=== PATIENT | male | born 1940 | race Caucasian/White ===

== ENCOUNTER 2018-11-14 08:53 | Outpatient (CLI) | payer MEDICARE, BC | END 2018-11-14 23:59 | disposition home or self-care (01) | LOC: US 08:53 | PROVIDERS: ATTEND Internal Medicine Interventional Cardiology | DX: I71.4 Abdominal aortic aneurysm, without rupture (principal); K80.20 Calculus of gallbladder without cholecystitis without obstruction | CPT/HCPCS: 76700-TC ==

== ENCOUNTER 2018-12-14 10:21 | Inpatient (IN) | payer MEDICARE, BC ==
[~2018-12-14] VITALS: Ht 182.9 cm; Wt 82.6 kg
--- NOTE | 2018-12-14 10:28 | NUR ---
BIBRA60 FROM HOME "WAS SITTING DOWN ON BED, FELL, AND HEARD A CRACK". C/O L HIP PAIN, +ROTATION AND SHORTENING OF L LEG. 100MG FENTANYL GIVEN EN ROUTE. TO ER BED 3, HOOKED TO MONITOR, CHANGED TO GOWN, AWAITING MD SALCEDO.
[2018-12-14] MEDS ORDERED: HYDROCODONE/APAP 10/325MG 1 EA TABLET ONE (10:49)
[2018-12-14 10:58] LABS: BASOPHILS % (AUTO) 0.4 % (0.0-2.0); EOSINOPHILS % (AUTO) 0.4 % (0.0-6.0); HEMATOCRIT 42 % (39-51); HEMOGLOBIN 13.9 g/dL (13.5-17.5); LYMPHOCYTES # (AUTO) 0.5 /CMM (0.8-4.8); LYMPHOCYTES % (AUTO) 9.6 % (20.0-44.0); MEAN CORPUSCULAR HGB CONC 33 g/dl (31.0-36.0); MEAN CORPUSCULAR VOLUME 97 fL (80-96); MONOCYTES # (AUTO) 0.7 /CMM (0.1-1.30); MONOCYTES % (AUTO) 12.8 % (2.0-12.0); NEUTROPHILS # (AUTO) 4.2 /CMM (1.8-8.9); NEUTROPHILS % (AUTO) 76.8 % (43.0-81.0); PLATELET COUNT (AUTO) 118 /CMM (150-450); RED BLOOD CELL COUNT(AUTO) 4.32 MIL/uL (4.5-6.0); WHITE BLOOD COUNT (AUTO) 5.4 K/uL (4.3-11.0)
[2018-12-14] MEDS ORDERED: HYDROCODONE/APAP 10/325MG 1 EA TABLET PO ONE (11:00)
[2018-12-14] MEDS ORDERED: ASCO500T9 PO (11:07)
[2018-12-14] MEDS ORDERED: OXYB10TA PO (11:07)
[2018-12-14] MEDS ORDERED: CYAN100096 PO (11:07)
[2018-12-14] MEDS ORDERED: CARV3.122 PO (11:07)
[2018-12-14] MEDS ORDERED: FURO40TA5 PO (11:07)
[2018-12-14] MEDS ORDERED: HYDR-3980 PO (11:07)
[2018-12-14] MEDS ORDERED: LOSA50TA39 PO (11:07)
[2018-12-14] MEDS ORDERED: MEMA5TAB15 PO (11:07)
[2018-12-14] MEDS ORDERED: ROPI0.5T2 PO (11:07)
[2018-12-14] MEDS ORDERED: TRAZ-214 PO (11:07)
[2018-12-14] MEDS ORDERED: PREG200C PO (11:07)
[2018-12-14] MEDS ORDERED: ATOR10TA PO (11:07)
--- NOTE | 2018-12-14 11:07 | NUR ---
XRAY TECHS AT BEDSIDE
[2018-12-14 11:08] LABS: CARBON DIOXIDE 29 mmol/L (21-32); CHLORIDE 103 mmol/L (98-107); GLUCOSE 171 mg/dL (74-106); POTASSIUM 4.9 mmol/L (3.5-5.1); SODIUM SERUM 137 mmol/L (136-145); UREA NITROGEN, BLOOD 51 mg/dL (7-18)
--- NOTE | 2018-12-14 11:48 | NUR ---
CALLED OFFICE OF Miguel RODRIGUEZ. [phone] WAS PAGED.
--- NOTE | 2018-12-14 11:51 | NUR ---
JC CORRIGAN AT [facility] ([phone]). AWAITNG FOR CALL BACK. PRIMARY NURSE AWARE.
[2018-12-14] MEDS ORDERED: IV NS 0.9% 500 ML BAG IV ONE (12:00)
--- NOTE | 2018-12-14 12:04 | NUR ---
DANIEL CARROLL ON-CALL. TRANSFERRED CALL TO DR. ESPARZA.
--- NOTE | 2018-12-14 12:13 | NUR ---
CALLED ROSEMARIE COHEN BICYCLE SERVICE TECHNICIAN THO GREENE
[2018-12-14] MEDS ORDERED: MORPHINE SULFATE INJ 4 MG/ML DISP.SYRIN ONE (12:23)
[2018-12-14] MEDS ORDERED: PHYTONADIONE INJ 10 MG/1 ML AMPUL ONE (12:23)
[2018-12-14] MEDS ORDERED: PHYTONADIONE INJ 10 MG/1 ML AMPUL SQ ONE (12:30)
[2018-12-14] MEDS ORDERED: MORPHINE SULFATE INJ 2 MG/ML DISP.SYRIN IV ONE (12:30)
[2018-12-14] MEDS ORDERED: PHYTONADIONE 5 MG TABLET PO ONE (12:30)
--- NOTE | 2018-12-14 13:03 | NUR ---
REPORT GIVEN TO JOE MARQUEZ OF TELE UNIT
--- NOTE | 2018-12-14 13:15 | NUR ---
SALES DESIGNERFLIGHT CREW TIME CLERK NOTES RECEIVED PT FROM ER TO ROOM 111-1.ALERT/ORIENTED X3.ON TELE HR IS 100 WITH BBB.ON ROOM AIR,SATURATING WELL.NO SOB AND ACUTE DISTRESS NOTED.IV LINE IS ON LEFT AC G20,SL.SITE IS CLEAN,DRY AND INTACT.NO INFILTRATION NOTED.C/O DULL PAIN ON LEFT HIP 5/10.DENIES PAIN MEDICINES.SKIN ASSESSMENT HAS DONE AND NOTED WITH BRUISES ON BLE AND BUE.PT REFUSED TO CHECK ON BACK BECAUSE OF PAIN. PER PT HE HAS DEFIBRILLATOR ON BACK.VITAL SIGNS CHECKED AND RECORDED.FAMILY IS AT BEDSIDE.BED IS IN LOW POSITION AND LOCKED.CALL LIGHT IS WITHIN REACH.WILL CONTINUE TO MONITOR THE PT CLOSELY.
--- NOTE | 2018-12-14 14:00 | NUR ---
INTERMEDIATE FRAME TENDER NOTES NOTED WITH ADMITTING DR.KASHANI COTTON TO PLACE ADMITTING ORDERS. PER HIM HE ALREADY PLACED THE ORDERS.BUT WE ALREADY LET HIM KNOW,ITS NOT SHOWING UPX2.STILL THE ORDER IS PENDING.
[2018-12-14 16:00] VITALS: BP 120/80
[2018-12-14] MEDS ORDERED: PREGABALIN 100 MG CAPSULE PO SCH (17:30)
[2018-12-14 17:34] LABS: THYROID STIMULATING HORMONE 0.762 uIU/mL (0.358-3.74)
[2018-12-14 17:47] LABS: MAGNESIUM 2.5 mg/dL (1.8-2.4); PHOSPHORUS 3.7 mg/dL (2.5-4.9)
[2018-12-14] MEDS: ropiniROLE 0.5 MG TABLET PO SCH (18:11)
[2018-12-14] MEDS: PREGABALIN 100 MG CAPSULE PO SCH (18:11)
[2018-12-14] MEDS: MEMANTINE HCL 5 MG TABLET PO SCH (18:11)
[2018-12-14] MEDS: HYDROCODONE/APAP 10/325MG 1 EA TABLET PO PRN (18:12)
[2018-12-14] MEDS: CARVEDILOL 3.125 MG TABLET PO SCH (18:12)
--- NOTE | 2018-12-14 18:58 | NUR ---
PATTERN HAND CLOSING NOTES PT IS LYING ON BED,HAD DINNER.IV FLUID PLACED AND RUNNING.SITE IS CLEAN,DRY AND INTACT.ALL THE DUE MEDS ARE GIVEN.NO SIGNIFICANT CHANGES NOTED IN THE SHIFT.PAIN MED ARE GIVEN.ALL THE CONSENTS ARE SIGNED BY ALICIA SORENSON IN FRONT OF PT.REPORT GIVEN TO BAG MACHINE ADJUSTER ALMA FLORES FOR COLIN.
--- NOTE | 2018-12-14 19:30 | NUR ---
KETTLE OPERATOR HEAD NOTES, PATIENT IN BED, SLEEPING AT THIS TIME, BREATHING EVEN AND UNLABORED, NO SOB/ACUTE DISTRESS NOTE AT THIS TIME, IV ACCESS IN LAC 20G PATENT AND INTACT, IVF INFUSING WELL AND PATIENT TOLERATED WELL, NO S/S OF INFILTRATION NOTED AT THIS TIME, PATIENT WILL BE NPO AFTER MIDNIGHT FOR SURGERY LEFT ORIF, WILL EDUCATE PATIENT, SLEEPING AT THIS TIME, LEAVING AT THIS TIME, AND VERBALIZED UNDERSTANDING, ALL NEEDS PROVIDED, NO S/S OF PAIN NOTED AT THIS TIME, BED LOCKED AND LOWEST POSITION, CALL LIGHT W/I REACH, WILL CONTINUE TO MONITOR CLOSELY.
[2018-12-14 20:00] VITALS: BP 89/64
[2018-12-14 21:00] VITALS: BP 89/64
[2018-12-14] MEDS: TRAZODONE 50 MG TABLET PO SCH (21:50)
[2018-12-15] VITALS (8 sets, daily range): BP systolic 95–135; BP diastolic 56–87
[2018-12-15] MEDS: IV NS 0.9% 1,000 ML IV PRN ×2 (02:56→11:04)
[2018-12-15] MEDS: HYDROCODONE/APAP 10/325MG 1 EA TABLET PO PRN ×2 (03:41→13:30)
--- NOTE | 2018-12-15 06:45 | NUR ---
RN DIABETES EDUCATOR NOTES, PATIENT IN BED, SLEEPING AT THIS TIME, BREATHING EVEN AND UNLABORED, NO SOB/ACUTE DISTRESS NOTE AT THIS TIME, IV ACCESS IN LAC 20G PATENT AND INTACT, IVF INFUSING WELL AND PATIENT TOLERATED WELL, NO S/S OF INFILTRATION NOTED AT THIS TIME, PATIENT NPO SINCE MIDNIGHT FOR ORIF LEFT FEMUR, PATIENT VERBALIZED UNDERSTANDING AND COMPLIANT WITH CARE, ALL NEEDS PROVIDED, NO S/S OF PAIN NOTED AT THIS TIME, BED LOCKED AND LOWEST POSITION, NO SIGNIFICANT CHANGE IN CONDITION DURING THE NIGHT, CALL LIGHT W/I REACH, WILL ENDORSE CONTINUITY OF CARE TO ONCOMING NURSE.
--- NOTE | 2018-12-15 08:05 | NUR ---
HAND DECORATOR NOTE RECEIVED REPORT FROM JARRELL MARQUEZ.PATIENT AXOX4.NO SOB NO DISTRESS NOTED.ON TELE MONITOR AFIB WITH PVC AND BBB HR90'S-110.V ON LAC WITH IVF AT 125CC/HR.C/O PAIN IN LOWER ABDOMEN. PER PATIENT UNABLE TO URINATE,AND HAS URGE.BLADDER SCAN DONE.NO URINARY RETENTION. MADE AWARE.GOT NEW ORDER .BED IS LOW AND I LOCKED POSITION.CALL LIGHT IN REACH.SRX3.REFUSED TO TURN AND REPOSITION.EXPLAINED RISK AND BENEFIT .STILL REFUSING.WILL CONTINUE TO MONITOR.
[2018-12-15 08:58] LABS: ALANINE AMINOTRANSFERASE 18 U/L (12-78); ALBUMIN 3.2 g/dL (3.4-5.0); ALKALINE PHOSPHATASE 72 U/L (46-116); ASPARTATE AMINOTRANSFERASE 15 U/L (15-37); BILIRUBIN,TOTAL 0.4 mg/dL (0.2-1.0); CALCIUM, SERUM 8.8 mg/dL (8.5-10.1); CARBON DIOXIDE 28 mmol/L (21-32); CHLORIDE 103 mmol/L (98-107); CREATININE 1.7 mg/dL (0.6-1.3); GLUCOSE 140 mg/dL (74-106); MAGNESIUM 2.4 mg/dL (1.8-2.4); PHOSPHORUS 3.7 mg/dL (2.5-4.9); POTASSIUM 5.3 mmol/L (3.5-5.1); SODIUM SERUM 136 mmol/L (136-145); TOTAL PROTEIN, SERUM 6.3 g/dL (6.4-8.2); UREA NITROGEN, BLOOD 50 mg/dL (7-18)
[2018-12-15 09:12] LABS: BASOPHILS % (AUTO) 0.3 % (0.0-2.0); EOSINOPHILS % (AUTO) 0.8 % (0.0-6.0); HEMATOCRIT 40 % (39-51); LYMPHOCYTES % (AUTO) 17.1 % (20.0-44.0); MEAN CORPUSCULAR HGB CONC 33 g/dl (31.0-36.0); MEAN CORPUSCULAR VOLUME 97 fL (80-96); MONOCYTES # (AUTO) 0.9 /CMM (0.1-1.30); NEUTROPHILS # (AUTO) 3.6 /CMM (1.8-8.9); NEUTROPHILS % (AUTO) 64.8 % (43.0-81.0); PLATELET COUNT (AUTO) 106 /CMM (150-450); RED BLOOD CELL COUNT(AUTO) 4.09 MIL/uL (4.5-6.0); WHITE BLOOD COUNT (AUTO) 5.6 K/uL (4.3-11.0)
[2018-12-15] MEDS: PREGABALIN 100 MG CAPSULE PO SCH ×3 (09:16→17:12)
[2018-12-15] MEDS: ropiniROLE 0.5 MG TABLET PO SCH (09:16)
[2018-12-15] MEDS: CARVEDILOL 3.125 MG TABLET PO SCH ×2 (09:16→17:15)
[2018-12-15] MEDS: MEMANTINE HCL 5 MG TABLET PO SCH ×2 (09:16→17:12)
[2018-12-15] MEDS: MORPHINE SULFATE INJ 2 MG/ML DISP.SYRIN IV PRN ×3 (09:18→20:07)
--- NOTE | 2018-12-15 09:19 | NUR ---
WOUND CARE CONSULT: PT REFUSED TO TURN FOR SKIN ASSESSMENT. PT NOTED TO HAVE IMMOBILIZER ON LEFT LOWER EXTREMITY. WEEPING EDEMA NOTED TO LEFT LOWER LEG, PRESENT ON ADMISSION. DISCOLORATION AND DRY FLAKY SKIN NOTED TO RT LOWER LEG, PRESENT ON ADMISSION. PT IS CONTINENT AT THIS TIME. CURRENT EMA SCORE IS 14. DISCUSSED SKIN PROTECTION WITH NURSING STAFF. WILL SEE PRN. JUNG IN AGREEMENT WITH PLAN OF CARE. Addendum: 12/15/18 at 0922 by MICHELLE HOBSON WNDNU Amended: Links added.
[2018-12-15] MEDS ORDERED: Z GUARD REMEDY 2 OZ OINT TP PRN (09:30)
--- NOTE | 2018-12-15 09:34 | NUR ---
HIRE CAR DRIVER NOTE SEEN BY WOUND CARE NURSE.GOT NEW ORDERS.MADE AWARE THAT PATIENT REFUSED TO TURN AND REPOSITION.
[2018-12-15] MEDS ORDERED: MINERAL OIL/PETROLATUM,WHITE 120 GM JAR TP PRN (10:00)
--- NOTE | 2018-12-15 10:00 | NUR ---
UX ENGINEER NOTE SEEN BY ,UPDATED ABOUT PATIENT CONDITION WITH HEART RHYTHM IN MONITOR AFIB WITH MORE FREQUENT PVC AND BB.MADE AWARE THAT NOT ON ANY MEDICATION TO CONTROL HR.
--- NOTE | 2018-12-15 10:15 | NUR ---
LOOM OPERATOR APPRENTICE NOTE MADE AWARE THAT PATIENT HAS FULL BLADDER ON ULTRASOUND,GOT ORDER TO INSERT RASHID CATH.
[2018-12-15] MEDS ORDERED: PHYTONADIONE INJ 10 MG in IV D5W 50 ML IV ONE (10:30)
--- NOTE | 2018-12-15 11:56 | NUR ---
RELAY TECHNICIAN NOTE PATIENT C/O CHEST PRESSURE AND HARD TIME BREATHING.NO CHEST PAIN.STAT EKG AND TROPONIN DONE. MADE AWARE.GOT NEW ORDERS.VITAL SIGNS STABLE.
--- NOTE | 2018-12-15 13:00 | NUR ---
MANAGER FACILITY NOTE AND UPDATED ABOUT POSITIVE DVT RESULT.
[2018-12-15] MEDS: Z GUARD REMEDY 2 OZ OINT TP SCH (13:29)
--- NOTE | 2018-12-15 14:45 | NUR ---
TYPE COPY EXAMINER NOTE UPDATED ABOUT PATIENT CONDITION.GOT NEW ORDERS.SEEN BY UPDATED ABOUT PATIENT CONDITION.GOT NEW ORDERS.GOT CALL FROM ,IVC FILTER INSERTION TOMORROW,GOT NEW ORDERS.PATIENT AND FAMILY UPDATED.
[2018-12-15] MEDS ORDERED: MAGNESIUM CITRATE 296 ML BOTTLE PO ONE (16:00)
--- NOTE | 2018-12-15 16:00 | NUR ---
SENIOR ASP NET DEVELOPER NOTE PATIENT PICKED UP FOR VQ SCAN IN STABLE CONDITION.SEEN BY AEROSPACE MECHANIC ROSETTA ,UPDATED ABOUT PATIENT CONDITION.SPOKE TO FAMILY AND ANSWERED ALL QUESTIONS.GOT NEW ORDERS.
--- NOTE | 2018-12-15 16:00 | NUR ---
FLATWORK CATCHER NOTE COMMUNITY RELATIONS MANAGER ROSETTA MADE AWARE ABOUT US ABDOMEN RESULT GOT NEW ORDERS.
[2018-12-15 16:24] LABS: CREATININE, URINE 180.8 MG/DL (30.0-125.0); URINE SODIUM, RANDOM < 5 mmol/l (40-220); URINE TOTAL PROTEIN 30.3 mg/dL (0-11.9)
--- NOTE | 2018-12-15 16:24 | NUR ---
SPEECH COMMUNICATION PROFESSOR NOTE ULTRASOUND ABDOMEN RESULT RELAYED TO HAILEY REYES NOW. Addendum: 12/15/18 at 1932 by GUTIERREZ CALDERON RN TAMIB ABDOMEN
[2018-12-15 16:26] LABS: APPEARANCE,URINE CLEAR (CLEAR); BILIRUBIN,URINE NEGATIVE (NEGATIVE); BLOOD, URINE NEGATIVE Ery/uL (NEGATIVE); COLOR,URINE YELLOW (YELLOW); KETONES,URINE NEGATIVE (NEGATIVE); LEUKOCYTE ESTERASE ,URINE NEGATIVE (NEGATIVE); NITRITE, URINE NEGATIVE (NEGATIVE); PROTEIN,URINE NEGATIVE (NEGATIVE); UGLUCOSE NEGATIVE (NEGATIVE); UROBILINOGEN,URINE 0.2 EU/dL (0.2)
--- NOTE | 2018-12-15 18:41 | NUR ---
NUCLEAR POWERPLANT MECHANIC HELPER NOTE PATIENT AXOX4. AT BEDSIDE .NO SOB NO DISTRESS NOTED.ON O2 2L VIA NASAL CANULA.ON TELE MONITOR AFIB WITH PVC AND BBB HR90'S-110.IV ON LAC WITH IVF NS AT 125CC/HR. .WAITING FOR VQ SCAN RESULT.REFUSED TURN AND REPOSITION.EDUCATION GIVEN.EXPLAINED RISK AND BENEFIT .STILL REFUSING.BED IS LOW AND IN LOCKED POSITION.CALL LIGHT IN REACH.SRX3. PER IVC FILTER PLACEMENT TOMORROW.EPIDEMIOLOGY INTERN ROSETTA MADE AWARE.WILL ENDORSE TO PM NURSE FOR COLIN.
--- NOTE | 2018-12-15 19:30 | NUR ---
CHEMIST ENZYMES NOTES, PATIENT IN BED, AWAKE AT THIS TIME, A/O X4, BREATHING EVEN AND UNLABORED, NO SOB/ACUTE DISTRESS NOTE AT THIS TIME, AFIB ON TELE MONITOR HR IN 100-110S AT THIS TIME, SON AT BEDSIDE, IV ACCESS IN LAC 20G PATENT AND INTACT, IVF INFUSING WELL AND PATIENT TOLERATED WELL, NO S/S OF INFILTRATION NOTED AT THIS TIME, F/C IN PATIENT WILL BE NPO AFTER MIDNIGHT FOR RIGHT LEG IV FILTER PLACEMENT TOMORROW AND POSSIBLE SURGERY LEFT ORIF, EDUCATION PROVIDED AND PATIENT VERBALIZED UNDERSTANDING AND CONSENT WAS OBTAINED, ALL NEEDS PROVIDED, NO S/S OF PAIN NOTED AT THIS TIME, BED LOCKED AND LOWEST POSITION, CALL LIGHT W/I REACH, WILL CONTINUE TO MONITOR CLOSELY.
[2018-12-15 21:36] LABS: EOSINOPHIL,URINE None Seen
[2018-12-15] MEDS: TRAZODONE 50 MG TABLET PO SCH (21:37)
[2018-12-16] VITALS: BP 110/50
[2018-12-16] MEDS: IV NS 0.9% 1,000 ML IV PRN ×3 (02:41→23:21)
[2018-12-16 04:00] VITALS: BP 137/84
--- NOTE | 2018-12-16 06:34 | NUR ---
COMMISSIONER OF RELOCATION SERVICES NOTES, PATIENT IN BED SLEEPING AT THIS TIME, BREATHING EVEN AND UNLABORED, NO SOB/ACUTE DISTRESS NOTE AT THIS TIME, IV ACCESS IN LAC 20G PATENT AND INTACT, IVF INFUSING WELL AND PATIENT TOLERATED WELL, NO S/S OF INFILTRATION NOTED AT THIS TIME, F/C IN PATIENT NPO SINCE MIDNIGHT FOR RIGHT LEG IVC FILTER PLACEMENT TODAY AND POSSIBLE SURGERY LEFT ORIF, NO SIGNIFICANT CHANGE IN CONDITION DURING THE NIGHT, BED LOCKED AND LOWEST POSITION, CALL LIGHT W/I REACH, WILL ENDORSE CONTINUITY OF CARE TO ONCOMING NURSE.
[2018-12-16 06:57] LABS: BASOPHILS % (AUTO) 0.4 % (0.0-2.0); HEMATOCRIT 38 % (39-51); HEMOGLOBIN 12.7 g/dL (13.5-17.5); LYMPHOCYTES # (AUTO) 0.6 /CMM (0.8-4.8); LYMPHOCYTES % (AUTO) 10.9 % (20.0-44.0); MEAN CORPUSCULAR HGB CONC 34 g/dl (31.0-36.0); MEAN CORPUSCULAR VOLUME 96 fL (80-96); MONOCYTES # (AUTO) 0.9 /CMM (0.1-1.30); MONOCYTES % (AUTO) 15.8 % (2.0-12.0); NEUTROPHILS # (AUTO) 4.2 /CMM (1.8-8.9); NEUTROPHILS % (AUTO) 71.9 % (43.0-81.0); PLATELET COUNT (AUTO) 103 /CMM (150-450); RED BLOOD CELL COUNT(AUTO) 3.94 MIL/uL (4.5-6.0); WHITE BLOOD COUNT (AUTO) 5.9 K/uL (4.3-11.0)
[2018-12-16 06:59] LABS: ALANINE AMINOTRANSFERASE 18 U/L (12-78); ALKALINE PHOSPHATASE 69 U/L (46-116); ASPARTATE AMINOTRANSFERASE 10 U/L (15-37); BILIRUBIN,TOTAL 0.6 mg/dL (0.2-1.0); CALCIUM, SERUM 8.8 mg/dL (8.5-10.1); CARBON DIOXIDE 29 mmol/L (21-32); CHLORIDE 106 mmol/L (98-107); CREATININE 1.2 mg/dL (0.6-1.3); GLUCOSE 162 mg/dL (74-106); MAGNESIUM 2.8 mg/dL (1.8-2.4); PHOSPHORUS 2.9 mg/dL (2.5-4.9); POTASSIUM 5.3 mmol/L (3.5-5.1); SODIUM SERUM 140 mmol/L (136-145); UREA NITROGEN, BLOOD 37 mg/dL (7-18)
[2018-12-16 07:01] LABS: CREATINE KINASE, TOTAL 84 U/L (39-308)
[2018-12-16 08:00] VITALS: BP 130/77
[2018-12-16] MEDS: MORPHINE SULFATE INJ 2 MG/ML DISP.SYRIN IV PRN ×3 (08:11→20:31)
[2018-12-16] MEDS: ropiniROLE 0.5 MG TABLET PO SCH (09:00)
[2018-12-16] MEDS: PREGABALIN 100 MG CAPSULE PO SCH ×3 (09:00→16:34)
[2018-12-16] MEDS: CARVEDILOL 3.125 MG TABLET PO SCH ×2 (09:00→16:34)
[2018-12-16] MEDS: Z GUARD REMEDY 2 OZ OINT TP SCH (09:00)
[2018-12-16] MEDS: MEMANTINE HCL 5 MG TABLET PO SCH ×2 (09:00→16:34)
[2018-12-16 09:23] LABS: EOSINOPHILS % (MANUAL) 1 % (0-4); LYMPHOCYTES % (MANUAL) 16 % (16-48); MONOCYTES % (MANUAL) 14 % (0-11.0); NEUTROPHILS % (MANUAL) 69 (42-76)
--- NOTE | 2018-12-16 11:33 | NUR ---
RN NOTE SPOKE WITH DR CASTILLO REGARDING NEW IVC FILTER PLACEMENT. NO NEED FOR NEW IVC FILTER TO BE PLACED. CANCEL THE CASE IN OR.
[2018-12-16 16:00] VITALS: BP 144/83
[2018-12-16 17:00] VITALS: BP 150/82
--- NOTE | 2018-12-16 19:00 | NUR ---
RN NOTE AROUND 1710 PT CO ABOUT PRESSURE IN THE CHEST, SHORTNESS OF THE BREATH, WITH SOME EXPIRATORY WHEEZING, PAIN MEDICINE GIVEN. VS STABLE, DR QUINTANA NOTIFIED, HE ORDERED EKG, TROP LEVEL, AND BREATHING TREATMENT. EKG RESULT REPORTED TO DR BRICENO, NO NEW ORDERS PER HIM. ALSO PT CO ABOUT LEAKING RASHID AND BURNING SENSATION IN HIS BLADDER AND PENIS, WANTS THE RASHID OUT. DR VASQUEZ REACHED AND GOT ORDERS FOR UA AND URINE CX, AND PYRIDIUM MEDICATION 100 MG PO BID X4 DOSES WHICH WAS ORDEERED AND CARRIED OUT. PT STABLE, REPORTED FEELING BETTER. SAFETY MEASURES IN PLACE. CALL LIGHT WITHIN REACH. WILL ENDORSE TO STAFF MIDWIFE.
[2018-12-16] MEDS: PHENAZOPYRIDINE HCL 200 MG TABLET PO SCH (19:01)
[2018-12-16 19:14] LABS: BILIRUBIN,URINE NEGATIVE (NEGATIVE); BLOOD, URINE 3+ Ery/uL (NEGATIVE); COLOR,URINE YELLOW (YELLOW); KETONES,URINE NEGATIVE (NEGATIVE); LEUKOCYTE ESTERASE ,URINE NEGATIVE (NEGATIVE); NITRITE, URINE NEGATIVE (NEGATIVE); PROTEIN,URINE 2+ mg/dl (NEGATIVE); UGLUCOSE NEGATIVE (NEGATIVE); UROBILINOGEN,URINE 0.2 EU/dL (0.2)
--- NOTE | 2018-12-16 19:17 | NUR ---
MS RN NOTE PATIENT REPORT GIVEN BEDSIDE. PATIENT RECEIVED IN BED A/O X 4. NO S/S OF ACUTE DISTRESS. PATIENT STATES HE FEELS "MAGNIFICENT." PATIENT DENIES SOB/ CHEST PAIN/ DISCOMFORT. PATIENT HAS R WRIST 22 G RUNNING AT 125 ML/HR NS. NO S/S OF INFECTION/INFILTRATION. DENTURES AND HEARING AIDS CHECKED. ALL BELONGINGS INTACT.SAFETY PRECAUTIONS IN PLACE. RN WILL CONTINUE TO MONITOR.
[2018-12-16 19:23] LABS: APPEARANCE,URINE HAZY (CLEAR)
[2018-12-16 19:27] LABS: BACTERIA,URINE Few /HPF (None Seen); SQUAMOUS EPITHELIAL CELL,UR Few /HPF (None Seen); WBC,URINE 0-2 /HPF (0-3)
[2018-12-16 20:00] VITALS: BP 127/86
[2018-12-16] MEDS: IPRATROPIUM NEB FS 0.5 MG/2.5 ML AMPUL.NEB NEB SCH (20:07)
[2018-12-16] MEDS: ALBUTEROL HALF STRENGTH 1.25 MG/3 ML VIAL.NEB NEB SCH (20:07)
[2018-12-16] MEDS: TRAZODONE 50 MG TABLET PO SCH (21:44)
[2018-12-17] VITALS (8 sets, daily range): BP systolic 126–146; BP diastolic 72–88
[2018-12-17] MEDS: ALBUTEROL HALF STRENGTH 1.25 MG/3 ML VIAL.NEB NEB SCH ×4 (01:05→19:46)
[2018-12-17] MEDS: IPRATROPIUM NEB FS 0.5 MG/2.5 ML AMPUL.NEB NEB SCH ×4 (01:05→19:46)
[2018-12-17 06:51] LABS: BASOPHILS % (AUTO) 0.3 % (0.0-2.0); EOSINOPHILS % (AUTO) 0.7 % (0.0-6.0); HEMATOCRIT 40 % (39-51); HEMOGLOBIN 13.2 g/dL (13.5-17.5); LYMPHOCYTES # (AUTO) 0.8 /CMM (0.8-4.8); LYMPHOCYTES % (AUTO) 12.1 % (20.0-44.0); MEAN CORPUSCULAR HGB CONC 33 g/dl (31.0-36.0); MEAN CORPUSCULAR VOLUME 97 fL (80-96); MONOCYTES # (AUTO) 1.1 /CMM (0.1-1.30); MONOCYTES % (AUTO) 16.1 % (2.0-12.0); NEUTROPHILS # (AUTO) 4.8 /CMM (1.8-8.9); NEUTROPHILS % (AUTO) 70.8 % (43.0-81.0); PLATELET COUNT (AUTO) 103 /CMM (150-450); RED BLOOD CELL COUNT(AUTO) 4.09 MIL/uL (4.5-6.0); WHITE BLOOD COUNT (AUTO) 6.8 K/uL (4.3-11.0)
[2018-12-17 06:58] LABS: ALANINE AMINOTRANSFERASE 25 U/L (12-78); ALBUMIN 2.8 g/dL (3.4-5.0); ALKALINE PHOSPHATASE 72 U/L (46-116); ASPARTATE AMINOTRANSFERASE 19 U/L (15-37); CALCIUM, SERUM 8.9 mg/dL (8.5-10.1); CARBON DIOXIDE 30 mmol/L (21-32); CHLORIDE 109 mmol/L (98-107); CREATININE 1.1 mg/dL (0.6-1.3); GLUCOSE 137 mg/dL (74-106); MAGNESIUM 2.7 mg/dL (1.8-2.4); POTASSIUM 5.5 mmol/L (3.5-5.1); SODIUM SERUM 143 mmol/L (136-145); TOTAL PROTEIN, SERUM 6.1 g/dL (6.4-8.2); UREA NITROGEN, BLOOD 31 mg/dL (7-18)
[2018-12-17 08:08] LABS: *SPE A/G RATIO 1.4 (0.7-1.7); *SPE ALBUMIN 3.4 g/dL (2.9-4.4); *SPE ALPHA-1-GLOBULIN 0.2 g/dL (0.0-0.4); *SPE ALPHA-2-GLOBULIN 0.8 g/dL (0.4-1.0); *SPE BETA GLOBULIN 0.9 g/dL (0.7-1.3); *SPE GLOBULIN, TOTAL 2.5 g/dL (2.2-3.9); *SPE M-SPIKE 0.2 g/dL (Not Observed); *SPEGAMMA GLOBULIN 0.6 g/dL (0.4-1.8)
[2018-12-17] MEDS: IV NS 0.9% 1,000 ML IV PRN ×2 (08:46→22:07)
[2018-12-17] MEDS: MEMANTINE HCL 5 MG TABLET PO SCH ×2 (09:00→17:00)
[2018-12-17] MEDS: PHENAZOPYRIDINE HCL 200 MG TABLET PO SCH ×2 (09:00→17:00)
[2018-12-17] MEDS: ropiniROLE 0.5 MG TABLET PO SCH (09:00)
[2018-12-17] MEDS: Z GUARD REMEDY 2 OZ OINT TP SCH (09:00)
[2018-12-17] MEDS: CARVEDILOL 3.125 MG TABLET PO SCH ×2 (09:00→17:00)
[2018-12-17] MEDS: PREGABALIN 100 MG CAPSULE PO SCH ×3 (09:00→17:00)
--- NOTE | 2018-12-17 09:00 | NUR ---
RN NOTE: SPOKE WITH THE PATIENT AND CLARIFIED WITH HIM REGARDING HIS WEIGHT. PER PATIENT, HE WEIGHS 235LB. ROSETTA ATKINSON DNP WAS MADE AWARE.
[2018-12-17] MEDS ORDERED: HYDROMORPHONE INJ 0.5 MG/0.5 ML SYRINGE IV ONE (10:30)
--- NOTE | 2018-12-17 11:35 | NUR ---
RN NOTE PT REFUSED HIDA SCAN DUE TO PAIN AND UNABLE TO LAY FLAT. PAIN MEDICATION OFFERED, DR GERARD SPOKE WITH PT EARLIER AND REMINDED HIM ABOUT THE IMPORTANCE, HE SEEMED TO AGREE THEN, BUT LATER WHEN TAKEN TO RADIOLOGY DEP PT REFUSED. LATER CAME AND SPOKE WITH DR MAYES AND PT ATTEMPTED TO CONVINCE PT TO HAVE HIDA TEST DONE. PT STILL REFUSED. WILL MONITOR PT CLOSELY.
[2018-12-17] MEDS ORDERED: ANESTHESIA TRAY IN PYXIS 1 EA TRAY MC ONE (13:58)
[2018-12-17] MEDS ORDERED: BUPIVACAINE 0.5 % PF 150 MG/30 ML VIAL ONE (14:05)
[2018-12-17] MEDS ORDERED: BACITRACIN 50000 UNITS/VIAL ONE (14:05)
[2018-12-17] MEDS ORDERED: HYDROMORPHONE INJ 2 MG/ML DISP.SYRIN ONE (15:17)
[2018-12-17 17:11] LABS: CHLORIDE,URINE RANDOM 98 mmol/L (55-125); POTASSIUM RNDM,URINE 71 mmol/L (25-125); URINE SODIUM, RANDOM 14 mmol/l (40-220)
[2018-12-17] MEDS ORDERED: BUPIVACAINE 0.25% 75 MG/30 ML VIAL ONE (17:21)
[2018-12-17 17:41] LABS: OSMOLALITY,URINE 841 mOS/kg (340-1090)
[2018-12-17] MEDS ORDERED: ALBUTEROL FS 2.5 MG/3 ML VIAL.NEB ONE (18:04)
[2018-12-17 18:24] LABS: HEMOGLOBIN 12.8 g/dL (13.5-17.5)
--- NOTE | 2018-12-17 18:30 | NUR ---
RN NOTE PT ARRIVED FROM OR IN STABLE CONDITION, VS STABLE, PT CO DIZZINESS AND NAUSEA, WILL FOLLOW UP WITH POST-OP ORDERS AND MONITOR.
[2018-12-17] MEDS ORDERED: ONDANSETRON HCL/PF 4 MG/2 ML VIAL ONE (18:48)
[2018-12-17] MEDS ORDERED: NALOXONE HCL 0.4 MG/ML AMPUL IV PRN (19:00)
[2018-12-17] MEDS ORDERED: ONDANSETRON HCL/PF 4 MG/2 ML VIAL IVP PRN (19:00)
--- NOTE | 2018-12-17 19:30 | NUR ---
MS RN NOTE REPORT GIVEN BEDSIDE. PATIENT A/O X 4. AT BEDSIDE. PATIENT STATE, "HE FEELS MARVELOUS" AND DENIES INTENSE PAIN. PATIENT INSTRUCTED ON USE OF ASSISTANT ENGINEER. PATIENT INSTRUCTIONS: ONLY THE PATIENT IS ALLOWED TO PUSH THE PUMP. EACH PUSH WILL DELIVER 0.2MG OF DILAUDID WITH AN 8 MINUTE LOCKOUT. AND PATIENT VERBALIZED UNDERSTANDING. PATIENT INSTRUCTED ON USE OF INCENTIVE SPIROMETER. PATIENT GAVE RETURN DEMONSTRATION OF USAGE. INSTRUCTED PATIENT TO USE IT EVERY HOUR TO PREVENT ATELECTASIS POST OP. PATIENT DENIES SOB/CHEST PAIN. RN WILL CONTINUE TO MONITOR.
[2018-12-17] MEDS ORDERED: KEY,NONCONTROL,TO KEEP IN PYXI 1 EA MC ONE (20:12)
[2018-12-17] MEDS: HYDROMORPHONE MDV 30 MG in IV NS 0.9% 15 ML, PCA TOTAL VOLUME 1 BAG IV PRN ×3 (20:16)
[2018-12-17] MEDS: TRAZODONE 50 MG TABLET PO SCH (21:04)
[2018-12-18] VITALS: BP 128/76
[2018-12-18] MEDS: CEFAZOLIN 2 GM in IV D5W 50 ML IV SCH ×2 (00:37→08:18)
[2018-12-18] MEDS: IPRATROPIUM NEB FS 0.5 MG/2.5 ML AMPUL.NEB NEB SCH ×4 (01:30→20:02)
[2018-12-18] MEDS: ALBUTEROL HALF STRENGTH 1.25 MG/3 ML VIAL.NEB NEB SCH ×4 (01:30→20:02)
[2018-12-18 04:00] VITALS: BP 84/46
--- NOTE | 2018-12-18 06:24 | NUR ---
MS RN NOTE PATIENT SLEPT WELL THROUGH THE NIGHT, WITH MINIMAL PAIN. PATIENT HAD NO ACUTE CHANGES THROUGHOUT THE NIGHT. WILL ENDORESE POC TO AM FOR COLIN
[2018-12-18] MEDS: IV NS 0.9% 1,000 ML IV PRN ×2 (06:34→15:44)
--- NOTE | 2018-12-18 07:25 | NUR ---
RN OPENING NOTE RECEIVED PATIENT IN BED AWAKE AND ALERT. HAVING HIS BREATHING TREATMENT. NO COMPLAINS OF ANY PAIN OR ANY SOB AT THIS TIME. PATIENT ON TAN ROOM SUPERVISOR PUMP 0.2 PER PUSH WITH 8 MIN LOCKOUT. TAN ROOM SUPERVISOR RUNNING ON HIS LEFT FORE ARM #20. ALSO HAS A RIGHT WRIST #22 WITH NS 125 ML/HR. HAS A RASHID CATH. BED ON LOWEST POSITION, LOCKED. CALL LIGHT WITHIN REACH. WILL CONTINUE TO MONITOR
[2018-12-18 07:30] LABS: BASOPHILS % (AUTO) 0.2 % (0.0-2.0); HEMATOCRIT 37 % (39-51); LYMPHOCYTES # (AUTO) 0.5 /CMM (0.8-4.8); LYMPHOCYTES % (AUTO) 4.4 % (20.0-44.0); MEAN CORPUSCULAR HGB CONC 33 g/dl (31.0-36.0); MEAN CORPUSCULAR VOLUME 97 fL (80-96); MONOCYTES # (AUTO) 1.3 /CMM (0.1-1.30); MONOCYTES % (AUTO) 12.2 % (2.0-12.0); NEUTROPHILS # (AUTO) 9.2 /CMM (1.8-8.9); NEUTROPHILS % (AUTO) 83.2 % (43.0-81.0); PLATELET COUNT (AUTO) 99 /CMM (150-450); RED BLOOD CELL COUNT(AUTO) 3.82 MIL/uL (4.5-6.0)
[2018-12-18 07:47] LABS: ALBUMIN 2.5 g/dL (3.4-5.0); ALKALINE PHOSPHATASE 99 U/L (46-116); BILIRUBIN,TOTAL 2.6 mg/dL (0.2-1.0); CALCIUM, SERUM 8.3 mg/dL (8.5-10.1); CARBON DIOXIDE 25 mmol/L (21-32); CHLORIDE 109 mmol/L (98-107); CREATININE 1.8 mg/dL (0.6-1.3); GLUCOSE 162 mg/dL (74-106); MAGNESIUM 2.7 mg/dL (1.8-2.4); PHOSPHORUS 5.5 mg/dL (2.5-4.9); SODIUM SERUM 142 mmol/L (136-145); TOTAL PROTEIN, SERUM 5.2 g/dL (6.4-8.2); UREA NITROGEN, BLOOD 46 mg/dL (7-18)
[2018-12-18 08:00] VITALS: BP 99/56
[2018-12-18 08:05] LABS: POTASSIUM 6.2 mmol/L (3.5-5.1)
[2018-12-18 08:30] LABS: LYMPHOCYTES % (MANUAL) 5 % (16-48); MONOCYTES % (MANUAL) 7 % (0-11.0); NEUTROPHILS % (MANUAL) 88 (42-76)
[2018-12-18] MEDS: CARVEDILOL 3.125 MG TABLET PO SCH ×2 (08:36→17:00)
[2018-12-18] MEDS: MEMANTINE HCL 5 MG TABLET PO SCH ×2 (08:37→16:15)
[2018-12-18] MEDS: ropiniROLE 0.5 MG TABLET PO SCH (08:37)
[2018-12-18] MEDS: PREGABALIN 100 MG CAPSULE PO SCH ×3 (08:37→16:15)
[2018-12-18] MEDS: PHENAZOPYRIDINE HCL 200 MG TABLET PO SCH ×2 (08:37→16:15)
[2018-12-18 08:38] LABS: ALANINE AMINOTRANSFERASE 3289 U/L (12-78); ASPARTATE AMINOTRANSFERASE 3710 U/L (15-37)
[2018-12-18] MEDS: Z GUARD REMEDY 2 OZ OINT TP SCH (08:38)
[2018-12-18] MEDS ORDERED: FUROSEMIDE 40 MG/4 ML VIAL IV ONE (09:30)
[2018-12-18] MEDS ORDERED: SODIUM POLYSTYRENE SULF. PWD 15 GM UDC PO ONE (09:30)
[2018-12-18 10:00] VITALS: BP 99/56
[2018-12-18] MEDS ORDERED: LACTULOSE 10 G/15 ML UDC (PYXIS) PO PRN (10:30)
[2018-12-18 11:14] LABS: CALCIUM, SERUM 8.5 mg/dL (8.5-10.1); CARBON DIOXIDE 25 mmol/L (21-32); CHLORIDE 106 mmol/L (98-107); CREATININE 1.9 mg/dL (0.6-1.3); GLUCOSE 175 mg/dL (74-106); SODIUM SERUM 140 mmol/L (136-145); UREA NITROGEN, BLOOD 48 mg/dL (7-18)
[2018-12-18 11:24] LABS: ALBUMIN 2.6 g/dL (3.4-5.0); ALKALINE PHOSPHATASE 108 U/L (46-116); BILIRUBIN,TOTAL 1.8 mg/dL (0.2-1.0); TOTAL PROTEIN, SERUM 5.4 g/dL (6.4-8.2)
[2018-12-18 11:51] LABS: ALANINE AMINOTRANSFERASE 3282 U/L (12-78); ASPARTATE AMINOTRANSFERASE 4900 U/L (15-37)
--- NOTE | 2018-12-18 12:35 | NUR ---
RN NOTE DR GERARD AND [place] BUSINESS INTELLIGENCE REPORTING ANALYST CAME IN AND TALKED TO THE PATIENT REGARDING HIDA SCAN. PATIENT REFUSED TO HAVE THE SCAN TODAY. IRVING ESPARZA ORDERED LIVER US AND PATIENT AGREED TO HAVE IT. PATIENT'S CALLED. PATIENT WAS SLEEPING BUT EVENTUALLY WOKE UP. PATIENT TALKED TO HIS OVER THE PHONE.
[2018-12-18 15:43] LABS: ALBUMIN 2.7 g/dL (3.4-5.0); BILIRUBIN,TOTAL 1.8 mg/dL (0.2-1.0); TOTAL PROTEIN, SERUM 5.4 g/dL (6.4-8.2)
[2018-12-18 15:44] LABS: IRON, SERUM 72 ug/dl (50-175); TOTAL IRON BINDING CAPACITY 196 ug/dl (250-450)
[2018-12-18 16:00] VITALS: BP 104/60
--- NOTE | 2018-12-18 16:10 | NUR ---
RN NOTE PHLEB TOLD ME THAT THE PATIENT REFUSED TO GET BLOOD DRAWN TODAY FOR BILIRUBIN AND HEP.
[2018-12-18] MEDS: PANTOPRAZOLE 40 MG VIAL IV SCH (16:16)
[2018-12-18] MEDS ORDERED: WARFARIN SODIUM 5 MG TABLET PO SCH (17:00)
[2018-12-18 17:44] LABS: FERRITIN 3843 ng/mL (8-388)
--- NOTE | 2018-12-18 18:43 | NUR ---
RN CLOSING NOTE PATIENT ASLEEP BUT EASILY AROUSABLE TO NAME. PATIENT REFUSED HIDA SCAN, AND SOME OF HIS BLOOD DRAW. ON FUR STORAGE CLERK PUMP DILAUDID. HAS IVF NS AT 125 ML/HR. CHANGED THE DRESSING FOR THE RIGHT WRIST IV SITE PER PATIENT REQUEST. STILL NPO. STABLE THROUGHOUT THE SHIFT. NO COMPLAINS OF ANY PAIN, NO SOB. ON 4L NC. WILL ENDORSE TO NOC SHIFT NURSE
[2018-12-18] MEDS ORDERED: KEY,NONCONTROL,TO KEEP IN PYXI 1 EA MC ONE (19:00)
[2018-12-18 20:00] VITALS: BP 107/72
--- NOTE | 2018-12-18 20:21 | NUR ---
RN MS INITIAL NOTE RECEIVED PATIENT IN BED AWAKE AND A0X4. NO COMPLAINS OF ANY PAIN OR ANY SOB AT THIS TIME. PATIENT ON ATHLETICS DIRECTOR PUMP 0.2 PER PUSH WITH 8 MIN LOCKOUT. ATHLETICS DIRECTOR RUNNING ON HIS LEFT FORE ARM #20. ALSO HAS A RIGHT WRIST #22 WITH NS 125 ML/HR. HAS A RASHID CATH. BED ON LOWEST POSITION, LOCKED. CALL LIGHT WITHIN REACH. WILL CONTINUE TO MONITOR
--- NOTE | 2018-12-18 20:30 | NUR ---
ICU/EMERGENCY COMMUNICATIONS DISPATCHER RECEIVED REPORT FROM NIGHT NURSE. SEE FLOWSHEET FOR ASSESSMENT, ALONG WITH ANY AND ALL SKIN ISSUES WHICH ARE ADDRESSED ALONG WITH THE EACH OF THE INTERVENTIONS TO THESE. PT IS CURRENTLY ALERTX3 AND ON N/C 3 LITERS, TOLERATING THIS WELL. PT IS ON IVF WHICH ARE ADDRESSED ON THE IV SPREAD SHEET.PT REFUSED TURN AND REPOSITION FOR COMFORT AND CARE. WILL CONTINUE TO MONITOR THIS PT CLOSELY.
[2018-12-18] MEDS ORDERED: PIPERACILLIN /TAZOBACTAM 3.375 G in IV D5W 50 ML IV ONE (22:00)
--- NOTE | 2018-12-18 22:15 | NUR ---
ROBERT/CHILD PROTECTIVE SERVICES SOCIAL WORKER 2100 MEDICATION AND 22OO MEDICATION GIVEN TO PT, ALONG WITH IVPB. CALL LIGHT WITHIN REACH. WILL CONTINUE TO MONITOR THIS PT.
[2018-12-18] MEDS: TRAZODONE 50 MG TABLET PO SCH (22:39)
--- NOTE | 2018-12-18 23:50 | NUR ---
ROBERT/MONITORING COORDINATOR PT IS USING HIS REFRIGERATOR CAR ICER FOR PAIN WHEN NEEDED, IS NOT CONTINUOUS. WILL CONTINUE TO MONITOR THIS PT.
[2018-12-19] MEDS: IPRATROPIUM NEB FS 0.5 MG/2.5 ML AMPUL.NEB NEB SCH ×4 (00:47→19:30)
[2018-12-19] MEDS: ALBUTEROL HALF STRENGTH 1.25 MG/3 ML VIAL.NEB NEB SCH ×4 (00:47→19:30)
[2018-12-19] MEDS: IV NS 0.9% 1,000 ML IV PRN ×2 (01:02→17:35)
--- NOTE | 2018-12-19 03:38 | NUR ---
ROBERT/BROACHING MACHINE REPAIRER REPORT GIVEN BACK TO BACK TO NIGHT NURSE NURSE
[2018-12-19] MEDS ORDERED: KEY,NONCONTROL,TO KEEP IN PYXI 1 EA MC ONE ×3 (03:57→15:06)
[2018-12-19] MEDS: HYDROMORPHONE MDV 30 MG in IV NS 0.9% 15 ML, PCA TOTAL VOLUME 1 BAG IV PRN ×3 (04:07)
[2018-12-19] MEDS: PIPERACILLIN /TAZOBACTAM 3.375 G in IV D5W 100 ML IV SCH ×3 (04:25→20:52)
--- NOTE | 2018-12-19 07:15 | NUR ---
RN OPENING NOTES RECEIVED PATIENT ASLEEP BUT EASILY AROUSABLE. CONT OF CARE FROM YESTERDAY. HAS A RIGHT WRIST #22 WITH NS RUNNING AT 125 ML/HR. AND LEFT FA #20 WITH DILAUDID IN DRILL PRESS TENDER PUMP WITH 0.2 MG/PUSH WITH 8 MIN LOCK OUT. NO COMPLAINS OF ANY PAIN AT THIS TIME. NOC SHIFT STATED THAT PATIENT REFUSED TO BE CLEANED OR TURNED LAST NIGHT. BED LOCKED AND ON LOW POSITION. CALL LIGHT WITHIN REACH. WILL CONTINUE TO MONITOR
[2018-12-19 07:57] LABS: BASOPHILS % (AUTO) 0.2 % (0.0-2.0); HEMATOCRIT 38 % (39-51); HEMOGLOBIN 12.5 g/dL (13.5-17.5); LYMPHOCYTES # (AUTO) 0.8 /CMM (0.8-4.8); LYMPHOCYTES % (AUTO) 7.5 % (20.0-44.0); MEAN CORPUSCULAR HGB CONC 33 g/dl (31.0-36.0); MEAN CORPUSCULAR VOLUME 96 fL (80-96); MONOCYTES # (AUTO) 1.2 /CMM (0.1-1.30); MONOCYTES % (AUTO) 11.9 % (2.0-12.0); NEUTROPHILS # (AUTO) 8.3 /CMM (1.8-8.9); NEUTROPHILS % (AUTO) 80.4 % (43.0-81.0); PLATELET COUNT (AUTO) 124 /CMM (150-450); RED BLOOD CELL COUNT(AUTO) 3.93 MIL/uL (4.5-6.0); WHITE BLOOD COUNT (AUTO) 10.3 K/uL (4.3-11.0)
[2018-12-19 08:00] VITALS: BP 115/86
[2018-12-19] MEDS ORDERED: CEFAZOLIN 1 GM VIAL IM SCH (08:00)
[2018-12-19 08:05] LABS: CALCIUM, SERUM 8.5 mg/dL (8.5-10.1); CARBON DIOXIDE 24 mmol/L (21-32); CHLORIDE 107 mmol/L (98-107); CREATININE 2.1 mg/dL (0.6-1.3); GLUCOSE 141 mg/dL (74-106); POTASSIUM 5.3 mmol/L (3.5-5.1); SODIUM SERUM 141 mmol/L (136-145); UREA NITROGEN, BLOOD 60 mg/dL (7-18)
[2018-12-19] MEDS: MEMANTINE HCL 5 MG TABLET PO SCH ×2 (08:09→17:08)
[2018-12-19] MEDS: PHENAZOPYRIDINE HCL 200 MG TABLET PO SCH ×2 (08:09→17:08)
[2018-12-19] MEDS: ropiniROLE 0.5 MG TABLET PO SCH (08:09)
[2018-12-19] MEDS: PREGABALIN 100 MG CAPSULE PO SCH ×3 (08:09→17:08)
[2018-12-19 08:15] LABS: ALANINE AMINOTRANSFERASE 1337 U/L (12-78); ALBUMIN 2.6 g/dL (3.4-5.0); ALKALINE PHOSPHATASE 121 U/L (46-116); ASPARTATE AMINOTRANSFERASE 1626 U/L (15-37); BILIRUBIN,DIRECT 0.7 mg/dL (0.0-0.2); BILIRUBIN,TOTAL 1.4 mg/dL (0.2-1.0); MAGNESIUM 2.7 mg/dL (1.8-2.4); PHOSPHORUS 4.3 mg/dL (2.5-4.9); TOTAL PROTEIN, SERUM 5.5 g/dL (6.4-8.2)
[2018-12-19] MEDS: CARVEDILOL 3.125 MG TABLET PO SCH ×2 (08:15→17:00)
[2018-12-19] MEDS: Z GUARD REMEDY 2 OZ OINT TP SCH (08:15)
[2018-12-19 09:00] VITALS: BP 115/86
[2018-12-19] MEDS ORDERED: CEFAZOLIN 2 GM in IV D5W 50 ML IV ONE (10:00)
--- NOTE | 2018-12-19 11:51 | NUR ---
RN NOTE PATIENT AND REFUSED HIDA SCAN TODAY
--- NOTE | 2018-12-19 15:30 | NUR ---
RN NOTE PER ROSETTA DNP, DO NOT CONTINUE COUMADIN BECAUSE OF HIDA SCAN FOR TOMORROW AM
[2018-12-19 16:00] VITALS: BP 117/66
--- NOTE | 2018-12-19 16:06 | NUR ---
RN NOTE PATIENT REFUSED THE HIDA SCAN TODAY. INSISTING HE WANTS TO EAT NOW AND HE HAS NOT EATEN FOR DAYS. WILL DO TOMORROW MORNING AT 0800. NPO AFTER MIDNIGHT
[2018-12-19] MEDS: PANTOPRAZOLE 40 MG VIAL IV SCH (17:09)
--- NOTE | 2018-12-19 18:15 | NUR ---
RN NOTE INSERTED A NEW IV LINE. RIGHT HAND #22 WITH NS RUNNING AT 125 ML/HR
--- NOTE | 2018-12-19 18:32 | NUR ---
RN NOTE PATIENT IN BED AWAKE AND ALERT, AGREED FOR US TO CHANGE HIS GOWN AND BLANKETS. NO COMPLAINS OF ANY ACUTE PAIN. OR ANY SOB. AFEBRILE THE WHOLE SHIFT. INSERTED A NEW IV, RIGHT HAND #22 WITH NS RUNNING AT 125 ML/HR. AND LEFT FA #20 EXTRUSION OPERATOR. PATIENT WILL BE NPO AFTER MIDNIGHT DUE TO HIDA SCAN TOMORROW MORNING AT 0800. RASHID CATH WITH ORANGE COLORED URINE DUE TO PYRIDIUM. PT EVAL TO BE DONE TOMORROW WELL. BED LOCKED AND ON LOWEST POSITION. CALL LIGHT WITHIN REACH. WILL ENDORSE TO NOC SHIFT
--- NOTE | 2018-12-19 19:35 | NUR ---
RN OPENING NOTES RECEIVED REPORT FROM DAYSHIFT RN. FOUND Pt AWAKE, RESTING IN BED WATCHING TV. NO S/S OF ACUTE DISTRESS OR SOB NOTED. Pt IS A/OX3, VERBAL, ABLE TO MAKE NEEDS KNOWN. IV ACCESS ON LFA #20G - CONNECTED TO SET PAINTER PUMP. 2ND IV ACCESS ON RHAND #22G, IVF NS @125ML/HR, INFUSING WELL. NO C/O PAIN AT THIS TIME. RESPIRATIONS EVEN AND UNLABORED. SAFETY MEASURES IN PLACE. BED LOW, LOCKED, HOB ELEVATED, SIDE RAILS UP, CALL LIGHT AND BEDSIDE TABLE WITHIN REACH. WILL CONTINUE TO MONITOR Pt's CONDITION AND SAFETY THROUGHOUT THE NIGHT.
[2018-12-19 20:00] VITALS: BP 110/56
[2018-12-19] MEDS: TRAZODONE 50 MG TABLET PO SCH (21:01)
[2018-12-20] VITALS: BP 110/56
[2018-12-20] MEDS: ALBUTEROL HALF STRENGTH 1.25 MG/3 ML VIAL.NEB NEB SCH ×4 (01:15→20:03)
[2018-12-20] MEDS: IPRATROPIUM NEB FS 0.5 MG/2.5 ML AMPUL.NEB NEB SCH ×4 (01:15→20:03)
[2018-12-20 04:00] VITALS: BP 118/66
[2018-12-20] MEDS: PIPERACILLIN /TAZOBACTAM 3.375 G in IV D5W 100 ML IV SCH ×3 (04:27→20:21)
--- NOTE | 2018-12-20 04:30 | NUR ---
RN NOTES Pt REFUSED TO BE CHANGED.
--- NOTE | 2018-12-20 06:00 | NUR ---
RN NOTES Pt AGAIN REFUSED TO BE CHANGED OR CLEANED. STATED THAT HE WANTS TO WAIT TILL AFTER THE HIDA SCAN PROCEDURE TO BE CLEANED.
--- NOTE | 2018-12-20 06:45 | NUR ---
RN CLOSING NOTES NO SIGNIFICANT CHANGES IN Pt's CONDITION. Pt REMAINS STABLE AT THIS TIME. NO S/S OF ACUTE DISTRESS OR SOB NOTED DURING THE NIGHT. ALL NEEDS MET AND ATTENDED TO. Pt IS CURRENTLY RESTING IN BED. RESPIRATIONS EVEN AND UNLABORED. SAFETY MEASURES IN PLACE. WILL ENDORSE TO DAYSHIFT RN FOR Pt's COLIN.
[2018-12-20 06:58] LABS: BASOPHILS % (AUTO) 0.2 % (0.0-2.0); EOSINOPHILS % (AUTO) 0.3 % (0.0-6.0); HEMATOCRIT 36 % (39-51); HEMOGLOBIN 12.1 g/dL (13.5-17.5); LYMPHOCYTES # (AUTO) 0.7 /CMM (0.8-4.8); LYMPHOCYTES % (AUTO) 7.7 % (20.0-44.0); MEAN CORPUSCULAR HGB CONC 34 g/dl (31.0-36.0); MEAN CORPUSCULAR VOLUME 95 fL (80-96); MONOCYTES # (AUTO) 1.1 /CMM (0.1-1.30); MONOCYTES % (AUTO) 11.6 % (2.0-12.0); NEUTROPHILS # (AUTO) 7.7 /CMM (1.8-8.9); NEUTROPHILS % (AUTO) 80.2 % (43.0-81.0); PLATELET COUNT (AUTO) 105 /CMM (150-450); RED BLOOD CELL COUNT(AUTO) 3.74 MIL/uL (4.5-6.0); WHITE BLOOD COUNT (AUTO) 9.6 K/uL (4.3-11.0)
--- NOTE | 2018-12-20 07:00 | NUR ---
MS RN OPENING NOTES RECEIVED PT LYING ON BED,ALERT/ORIENTED X3-4.ON 4L O2 VIA NC CONTINUOUSLY.NO SOB AN ACUTE DISTRESS NOTED.FC IS IN PLACE.PT IS WITH FOOT DOCTOR PUMP OF HYDROMORPHONE,NO PAIN NOTED FOR NOW.FAMILY IS AT BEDSIDE.IV LINE IS ON LEFT FA G20 AND RIGHT HAND G22,SITE IS CLEAN,DRY AND INTACT.NO INFILTRATION NOTED.SAFETY IS MAINTAINED GER LL TIMES.BED IS IN LOW POSITION AND LOCKED.CALL LIGHT IS WITHIN REACH.WILL CONTINUE TO MONITOR THE PT CLOSELY.
[2018-12-20 07:40] LABS: ALBUMIN 2.4 g/dL (3.4-5.0); ALKALINE PHOSPHATASE 133 U/L (46-116); ASPARTATE AMINOTRANSFERASE 1944 U/L (15-37); BILIRUBIN,TOTAL 1.2 mg/dL (0.2-1.0); CALCIUM, SERUM 8.5 mg/dL (8.5-10.1); CARBON DIOXIDE 24 mmol/L (21-32); CHLORIDE 107 mmol/L (98-107); CREATININE 1.6 mg/dL (0.6-1.3); GLUCOSE 145 mg/dL (74-106); MAGNESIUM 2.8 mg/dL (1.8-2.4); PHOSPHORUS 3.3 mg/dL (2.5-4.9); POTASSIUM 4.7 mmol/L (3.5-5.1); SODIUM SERUM 140 mmol/L (136-145); TOTAL PROTEIN, SERUM 5.6 g/dL (6.4-8.2); UREA NITROGEN, BLOOD 54 mg/dL (7-18)
[2018-12-20 08:00] VITALS: BP 148/92
[2018-12-20 08:37] LABS: ALANINE AMINOTRANSFERASE 2102 U/L (12-78)
--- NOTE | 2018-12-20 09:12 | NUR ---
MS RN NOTES PT TRANSFERRED TO DO HIDA SCAN WITH FLUE TILE PRESS OPERATOR PUMP OF HYDROMORPHONE.FAMILY IS ACCOMPANIED WITH PT.NO COMPLICATIONS NOTED.
--- NOTE | 2018-12-20 09:29 | NUR ---
NM: HIDA SCAN WAS COMPLETED. TECH:RB.
[2018-12-20] MEDS: MEMANTINE HCL 5 MG TABLET PO SCH ×2 (10:09→16:38)
[2018-12-20] MEDS: ropiniROLE 0.5 MG TABLET PO SCH (10:09)
[2018-12-20] MEDS: PREGABALIN 100 MG CAPSULE PO SCH ×3 (10:09→16:39)
[2018-12-20] MEDS: PHENAZOPYRIDINE HCL 200 MG TABLET PO SCH ×2 (10:09→16:38)
[2018-12-20] MEDS: CARVEDILOL 3.125 MG TABLET PO SCH ×2 (10:10→16:39)
[2018-12-20] MEDS: Z GUARD REMEDY 2 OZ OINT TP SCH (10:10)
[2018-12-20] MEDS ORDERED: KEY,NONCONTROL,TO KEEP IN PYXI 1 EA MC ONE (10:19)
[2018-12-20] MEDS: HYDROMORPHONE MDV 30 MG in IV NS 0.9% 15 ML, PCA TOTAL VOLUME 1 BAG IV PRN ×3 (10:31)
--- NOTE | 2018-12-20 10:31 | NUR ---
MS RN NOTES DISCARDED IV DILAUDID 30ML ,ONE RN WITNESSED.
[2018-12-20 16:00] VITALS: BP 108/66
[2018-12-20 16:03] VITALS: BP 108/66
[2018-12-20] MEDS: PANTOPRAZOLE 40 MG VIAL IV SCH (16:41)
--- NOTE | 2018-12-20 18:42 | NUR ---
MS RN CLOSING NOTES PT IS LYING ON BED.PT IS CLEAN AND DRY.NO SOB AND ACUTE DISTRESS NOTED.ON NC 4L O2 VIA NC CONTINUOUSLY.ENDORSED TO FIBERGLASS INSULATION INSTALLER RN FOR COLIN.
[2018-12-20 20:00] VITALS: BP 110/77
[2018-12-20] MEDS: TRAZODONE 50 MG TABLET PO SCH ×2 (21:49→22:00)
--- NOTE | 2018-12-21 00:33 | NUR ---
MS/RN INITIAL NOTES RECEIVED PT IN BED, RESTING COMFORTABLY. AT BEDSIDE. ON 4L O2 VIA NC, NO SOB NOTED. PT REPORTS PAIN IS TOLERABLE. WITH ONGOING IVF NS @125 ML/HR, DILAUDID BUZZLE BUFFER, CONNECTED TO RHAND G22 IV, C/D/I. F/C INTACT AND IN PLACED, DRAINING ORANGE COLOR URINE. HOB ELEVATED. SAFETY MEASURES IN PLACED. CALL LIGHT WITHIN REACH. WILL CONT TO MONITOR
[2018-12-21] MEDS: ALBUTEROL HALF STRENGTH 1.25 MG/3 ML VIAL.NEB NEB SCH ×4 (02:15→19:23)
[2018-12-21] MEDS: IPRATROPIUM NEB FS 0.5 MG/2.5 ML AMPUL.NEB NEB SCH ×4 (02:15→19:23)
[2018-12-21] MEDS: PIPERACILLIN /TAZOBACTAM 3.375 G in IV D5W 100 ML IV SCH ×3 (03:15→19:42)
[2018-12-21] MEDS: IV NS 0.9% 1,000 ML IV PRN (03:16)
[2018-12-21 04:00] VITALS: BP 97/60
--- NOTE | 2018-12-21 07:15 | NUR ---
MS RN OPENING NOTES RECEIVED PT IN BED, SLEEPING BUT EASY TO AROUSE. ALERT AND ORIENTED X3. ON 4L O2 VIA NC, NO SOB NOTED. PT REPORTS PAIN IS TOLERABLE. WITH ONGOING IVF NS @125 ML/HR, DILAUDID FUNNEL SETTER, CONNECTED TO [facility] G22 IV, C/D/I. F/C INTACT AND IN PLACED, DRAINING ORANGE COLOR URINE. HOB ELEVATED. SAFETY MEASURES IN PLACE. CALL LIGHT WITHIN REACH. WILL CONT TO MONITOR.
--- NOTE | 2018-12-21 07:19 | NUR ---
RN NOTES PT IN STABLE CONDITION. NO ACUTE CHANGES THROUGHOUT SHIFT. ALL NEEDS ANTICIPATED. SAFETY MEASURES OBSERVED AT ALL TIMES. ENDORSED TO AM SHIFT RN FOR COLIN RETAIL PRODUCT DEMO SPECIALIST DILAUDID 0.2MG PATIENT DEMAND RETAIL PRODUCT DEMO SPECIALIST, REMAINING VOLUME 29.8
[2018-12-21 08:00] VITALS: BP 119/82
[2018-12-21] MEDS: Z GUARD REMEDY 2 OZ OINT TP SCH (09:00)
[2018-12-21] MEDS: PHENAZOPYRIDINE HCL 200 MG TABLET PO SCH ×2 (09:13→16:13)
[2018-12-21] MEDS: MEMANTINE HCL 5 MG TABLET PO SCH ×2 (09:13→16:13)
[2018-12-21] MEDS: CARVEDILOL 3.125 MG TABLET PO SCH ×2 (09:13→16:25)
[2018-12-21] MEDS: PREGABALIN 100 MG CAPSULE PO SCH ×3 (09:13→16:13)
[2018-12-21] MEDS: ropiniROLE 0.5 MG TABLET PO SCH (09:13)
--- NOTE | 2018-12-21 10:30 | NUR ---
MS RN NOTES SPOKE WITH PHARMACIST REGARDING PATIENT'S DILAUDID VIA SOIL SPECIALIST. AWAITING FOR RESPONSE.
[2018-12-21 10:40] LABS: BASOPHILS % (AUTO) 0.1 % (0.0-2.0); EOSINOPHILS % (AUTO) 0.4 % (0.0-6.0); HEMATOCRIT 35 % (39-51); HEMOGLOBIN 11.5 g/dL (13.5-17.5); LYMPHOCYTES # (AUTO) 0.5 /CMM (0.8-4.8); LYMPHOCYTES % (AUTO) 5.8 % (20.0-44.0); MEAN CORPUSCULAR HGB CONC 33 g/dl (31.0-36.0); MEAN CORPUSCULAR VOLUME 96 fL (80-96); MONOCYTES % (AUTO) 12.2 % (2.0-12.0); NEUTROPHILS # (AUTO) 6.9 /CMM (1.8-8.9); NEUTROPHILS % (AUTO) 81.5 % (43.0-81.0); PLATELET COUNT (AUTO) 77 /CMM (150-450); RED BLOOD CELL COUNT(AUTO) 3.62 MIL/uL (4.5-6.0); WHITE BLOOD COUNT (AUTO) 8.4 K/uL (4.3-11.0)
[2018-12-21 10:56] LABS: ALBUMIN 2.5 g/dL (3.4-5.0); ALKALINE PHOSPHATASE 162 U/L (46-116); BILIRUBIN,TOTAL 1.3 mg/dL (0.2-1.0); CALCIUM, SERUM 8.3 mg/dL (8.5-10.1); CARBON DIOXIDE 26 mmol/L (21-32); CHLORIDE 105 mmol/L (98-107); CREATININE 1.5 mg/dL (0.6-1.3); GLUCOSE 170 mg/dL (74-106); MAGNESIUM 2.5 mg/dL (1.8-2.4); PHOSPHORUS 2.9 mg/dL (2.5-4.9); POTASSIUM 4.6 mmol/L (3.5-5.1); SODIUM SERUM 138 mmol/L (136-145); TOTAL PROTEIN, SERUM 5.6 g/dL (6.4-8.2); UREA NITROGEN, BLOOD 46 mg/dL (7-18)
[2018-12-21] MEDS ORDERED: KEY,NONCONTROL,TO KEEP IN PYXI 1 EA MC ONE ×2 (11:08→11:53)
[2018-12-21 11:26] LABS: ASPARTATE AMINOTRANSFERASE 2255 U/L (15-37)
[2018-12-21 11:27] LABS: ALANINE AMINOTRANSFERASE 2745 U/L (12-78)
[2018-12-21 11:34] LABS: EOSINOPHILS % (MANUAL) 1 % (0-4); LYMPHOCYTES % (MANUAL) 6 % (16-48); MONOCYTES % (MANUAL) 11 % (0-11.0); NEUTROPHILS % (MANUAL) 82 (42-76)
[2018-12-21] MEDS: HYDROMORPHONE 1 MG/1 ML DISP.SYRIN IV PRN (13:00)
[2018-12-21 16:00] VITALS: BP 113/73
[2018-12-21] MEDS: PANTOPRAZOLE 40 MG VIAL IV SCH (16:13)
--- NOTE | 2018-12-21 19:11 | NUR ---
MS RN CLOSING NOTES PT RESTING IN BED. ALERT AND ORIENTED X3. ON 4L O2 VIA NC, NO SOB NOTED. PT REPORTS PAIN IS TOLERABLE. WITH ONGOING IVF NS @60 ML/HR, F/C INTACT AND IN PLACED, DRAINING ORANGE COLOR URINE. HOB ELEVATED. SAFETY MEASURES IN PLACE THROUGHOUT SHIFT. ALL MD ORDERS ATTENDED. WILL ENDORSE TO AGRICULTURAL EQUIPMENT MECHANIC NURSE FOR COLIN.
--- NOTE | 2018-12-21 19:30 | NUR ---
MS RN NOTE REPORT GIVEN BEDSIDE. PATIENT RECEIVED IN BED, SUPINE, WATCHING TV. PATIENT HAS NO ACUTE S/S OF DISTRESS. PATIENT A/O X 4 BREATHING EVEN AND UNLABORED. PATIENT DENIES SOB/ CHEST PAIN/N/V/D/C. PATIENT HAS NO C/O DISCOMFORT AT THIS TIME. SAFETY PRECAUTIONS IN PLACE. RN WILL CONTINUE TO MONITOR.
[2018-12-22] VITALS: BP 112/75
[2018-12-22] MEDS: IPRATROPIUM NEB FS 0.5 MG/2.5 ML AMPUL.NEB NEB SCH ×4 (00:36→19:54)
[2018-12-22] MEDS: ALBUTEROL HALF STRENGTH 1.25 MG/3 ML VIAL.NEB NEB SCH ×4 (00:36→19:54)
[2018-12-22] MEDS: PIPERACILLIN /TAZOBACTAM 3.375 G in IV D5W 100 ML IV SCH ×3 (03:28→20:41)
[2018-12-22] MEDS: IV NS 0.9% 1,000 ML IV PRN (03:28)
--- NOTE | 2018-12-22 06:51 | NUR ---
CELL ASSEMBLY PINNER NOTE PATIENT TOLERATED THE NIGHT WELL. NOT ACUTE CHANGES THROUGH THE NIGHT, ALL CARE RENDERED. SAFETY PRECAUTIONS IN PLACE. ENDORSED POC TO AM FOR COLIN.
--- NOTE | 2018-12-22 07:22 | NUR ---
RN OPENING NOTES RECEIVED PATIENT IN BED ASLEEP, BUT EASILY AROUSABLE. PER NOC SHIFT RN, PATIENT IS STILL REFUSING TO BE CLEANED/REPOSITIONED. ALERT AND ORIENTED X4. ON 3L NC, SATING >90%. NO COMPLAINS OF ANY PAIN OR ANY DISTRESS AT THIS TIME. PATIENT IS S/P ORIF LEFT FEMUR LAST 12/17. ON CCHO DIET. HAS NS RUNNING AT 60 ML/HR ON THE RIGHT HAND #22. BED LOCKED AND ON LOWEST POSITION. CALL LIGHT WITHIN REACH. WILL CONTINUE TO MONITOR THROUGH OUT THE SHIFT
[2018-12-22 08:00] VITALS: BP 125/73
[2018-12-22] MEDS: PREGABALIN 100 MG CAPSULE PO SCH ×3 (08:12→17:00)
[2018-12-22] MEDS: ropiniROLE 0.5 MG TABLET PO SCH (08:12)
[2018-12-22] MEDS: MEMANTINE HCL 5 MG TABLET PO SCH ×2 (08:12→17:00)
[2018-12-22] MEDS: PHENAZOPYRIDINE HCL 200 MG TABLET PO SCH ×2 (08:13→17:00)
[2018-12-22] MEDS: CARVEDILOL 3.125 MG TABLET PO SCH ×3 (08:21→17:00)
[2018-12-22] MEDS: Z GUARD REMEDY 2 OZ OINT TP SCH (08:21)
[2018-12-22 09:00] VITALS: BP 125/73
--- NOTE | 2018-12-22 09:37 | NUR ---
RN NOTE AT BEDSIDE. PATIENT STATES PAIN IS TOLERABLE AT THIS TIME. ENCOURAGED THE PATIENT TO AT LEAST PUT A PILLOW ON HIS SIDE AND REPOSITION. PATIENT REFUSED AND STATES HE WANTS HIS GOWN CHANGED. CHANGED THE GOWN AND BLANKETS WELL. PATIENT ALERT AND ORIENTED X4
[2018-12-22] MEDS: HYDROMORPHONE 1 MG/1 ML DISP.SYRIN IV PRN (09:48)
[2018-12-22] MEDS ORDERED: HYDROMORPHONE 1 MG/1 ML DISP.SYRIN IV ONE (10:10)
--- NOTE | 2018-12-22 10:29 | NUR ---
RN NOTE PATIENT WAS GIVEN 0.5 MG OF DILAUDID IVP FOR PAIN IN LEG, TO BE ABLE TO DO PT. PATIENT COMPLAINED OF CHEST DISCOMFORT A FEW MINUTES AFTER THE MEDICATION WAS GIVEN. PT WAS CANCELLED. JC ARGUELLES NP. ORDERED 1MG OF DILAUDID IVP ONCE. WILL MONITOR PATIENT CLOSELY.
[2018-12-22] MEDS ORDERED: ERGOCALCIFEROL (VITAMIN D 2) 50,000 UNIT CAPSULE PO SCH (13:00)
[2018-12-22] MEDS ORDERED: Ergocalciferol (Vitamin D 2) PO (14:20)
[2018-12-22 16:00] VITALS: BP_SYST 120; BP_DIAS 72; BP_DIAS 79
--- NOTE | 2018-12-22 16:00 | NUR ---
RN NOTE CHARGE NURSE INSERTED A NEW IV SITE, RIGHT UPPER ARM #20. OLD SITE WAS REMOVED DURING PHYSICAL THERAPY
[2018-12-22] MEDS: PANTOPRAZOLE 40 MG VIAL IV SCH (16:23)
--- NOTE | 2018-12-22 16:56 | NUR ---
RN NOTE PATIENT WILL BE PICKED UP TO HAVE AN MRI. PO MEDS WILL BE HELD AT THIS TIME, NPO FOR THE TEST DR VASQUEZ ON BEDSIDE Addendum: 12/22/18 at 1738 by JOAN SOLER RN ER TECH AT 1800
--- NOTE | 2018-12-22 17:00 | NUR ---
RN NOTE NOTICED THAT PATIENT'S RIGHT ARM IS SWELLING, EXUDATING SMALL AMOUNTS OF YELLOW COLORED DROPLETS. PATIENT STATES HE USED TO HAVE THESE FLUIDS ON HIS LEGS BUT NOT ON HIS ARM. MD MADE AWARE, ORDERED DUPLEX TO CHECK.
--- NOTE | 2018-12-22 17:41 | NUR ---
RN NOTE ALL 1700 PO MEDS NOT GIVEN DUE TO NPO BEFORE MRI AT 1800
--- NOTE | 2018-12-22 18:17 | NUR ---
RN NOTE ANOTHER PHLEB TRIED TO DRAW BLOOD FROM PATIENT. STATES PATIENT IS HARD STICK AND COULD NOT GET A GOOD VEIN. PATIENT REFUSES TO BE POKED "ANYTIME SOON". ASKED IF THE PATIENT COULD GET A MIDLINE. ASKED FACULTY I ON CALL MEDICAL ASSISTANT, MIDLINE WAS DENIED. EDUCATED PATIENT AND THAT MIDLINE IS A HIGH RISK FOR INFECTION AND WE DO NOT DO IT FOR BLOOD DRAW AND REFUSING TO BE POKED MANY TIMES.
--- NOTE | 2018-12-22 19:08 | NUR ---
RN CLOSING NOTE MRI WAS NOT DONE TODAY DUE TO SEVERE PAIN TRANSFERRING. OFFERED PAIN MEDS BUT PATIENT REFUSED. WILL TRY AGAIN TOMORROW MORNING. STABLE THE WHOLE SHIFT. NO COMPLAINS OF SOB. ON 3L NC. WILL EAT DINNER NOW. AT BEDSIDE.
[2018-12-22 20:00] VITALS: BP 110/74
--- NOTE | 2018-12-22 20:02 | NUR ---
INITIAL DUPLEX VENOUS LEFT UPPER EXT SHOWED POSITIVE FOR DVT. ADVISED RN AVE OF PRELIMINARY FINDING AND CALLED JAILYN.
--- NOTE | 2018-12-22 21:00 | NUR ---
ASSISTANT ATHLETIC TRAINER NOTES IV ATTEMPT X1, UNSUCCESSFUL. ASSISTANT ATHLETIC TRAINER JACOB CALLED TO BEDSIDE, RIGHT HAND #[id number].
[2018-12-22] MEDS: TRAZODONE 50 MG TABLET PO SCH (21:26)
--- NOTE | 2018-12-22 22:00 | NUR ---
RN NOTES PATIENT REFUSING LAB DRAW. EXPLAINED RISKS AND CONSEQUENCES, PATIENT VERBALIZES UNDERSTANDING, BUT STILL STRONGLY REFUSING
--- NOTE | 2018-12-22 22:30 | NUR ---
RN NOTES DUPLEX OF LUE COMPLETED, WITH NEW PANKAJ BASILIC DVT. NOTIFIED KAYLYN RESENDEZ AMMONIUM NITRATE NEUTRALIZER REGARDING RESULTS, AND DISCUSSED HISTORY IN DEPTH. PER HAILEY PATIÑO AT THIS TIME. SIGN POSTED IN PATIENT ROOM TO NOTIFY AND REMIND OTHER STAFF, "NO BP OR BLOOD DRAW ON LUE."
[2018-12-23] MEDS: ALBUTEROL HALF STRENGTH 1.25 MG/3 ML VIAL.NEB NEB SCH ×7 (01:30→19:35)
[2018-12-23] MEDS: IPRATROPIUM NEB FS 0.5 MG/2.5 ML AMPUL.NEB NEB SCH ×7 (01:30→19:35)
--- NOTE | 2018-12-23 03:54 | NUR ---
ROBERT RN NOTES PATIENT NOW ASKING FOR BREATHING TREATMENT DUE TO SOB, AFTER PREVIOUSLY REFUSING DUE TO NOT WANTING TO BE BOTHERED DUE TO SLEEP. RT CHARIS NOTIFIED
[2018-12-23 04:00] VITALS: BP 133/72
[2018-12-23] MEDS: PIPERACILLIN /TAZOBACTAM 3.375 G in IV D5W 100 ML IV SCH ×3 (05:21→20:34)
--- NOTE | 2018-12-23 06:00 | NUR ---
RN NOTES PATIENT REFUSING LAB DRAW. EXPLAINED RISKS AND CONSEQUENCES, WITH VERBALIZATION OF UNDERSTANDING, STILL STRONGLY REFUSING.
--- NOTE | 2018-12-23 06:30 | NUR ---
RN CLOSING NOTES PATIENT RESTING COMFORTABLY IN BED. PATIENT REFUSED TURNING AND REPOSITIONING THROUGHOUT THE SHIFT. PATIENT EDUCATED EXTENSIVELY REGARDING RISKS AND CONSEQUENCES OF REFUSING REPOSITIONING, INCLUDING DEVELOPMENT OF DVTs PEs. PATIENT VERBALIZED UNDERSTANDING, STILL STRONGLY REFUSING DUE TO PAIN Addendum: 12/23/18 at 0743 by AGUILAR CORTEZ RN WILL ENDORSE THE PATIENT TO THE AM SHIFT NURSE FOR CONTINUITY OF CARE
[2018-12-23 08:00] VITALS: BP 133/98
[2018-12-23] MEDS ORDERED: METRONIDAZOLE 500MG/ NS 100ML 500 MG in PREMIX 1 EA IV SCH (08:00)
[2018-12-23] MEDS: CARVEDILOL 3.125 MG TABLET PO SCH ×2 (08:23→16:33)
[2018-12-23] MEDS: ropiniROLE 0.5 MG TABLET PO SCH (08:24)
[2018-12-23] MEDS: MEMANTINE HCL 5 MG TABLET PO SCH ×2 (08:24→16:34)
[2018-12-23] MEDS: PHENAZOPYRIDINE HCL 200 MG TABLET PO SCH ×2 (08:24→16:33)
[2018-12-23] MEDS: PREGABALIN 100 MG CAPSULE PO SCH ×3 (08:24→16:33)
[2018-12-23] MEDS: Z GUARD REMEDY 2 OZ OINT TP SCH (08:28)
--- NOTE | 2018-12-23 08:29 | NUR ---
MS RN NOTES RECEIVED PT IN THE BED ALERT AND ORIENTED X4. ON O2 3LPM. NO PAIN OR DISCOMFORT AT THIS TIME. PT HAVE A F/C AND LAURA COLOR. RT HAND WITH IV GAUGE #20 NS @ 60CC/HR. INFUSING WELL. IV FLUSHED WELL. PT CALL LIGHT WITHIN REACHED. PLAN OF CARE DISCUSSED WITH PATIENT. BED LOCKED AND LOW POSITION. DR. BRICENO AT BEDSIDE. AWARE OF THE LT UPPER ARM POSITIVE DVT. STATE NEEDED TO DO THE HIDA SCAN FIRST. WILL CONTINUE TO MONITOR CLOSELY.
[2018-12-23] MEDS ORDERED: LEVOFLOXACIN 750 MG /D5W 150ML 750 MG in PREMIX 1 EA IV SCH (09:00)
[2018-12-23 09:36] LABS: BASOPHILS % (AUTO) 0.1 % (0.0-2.0); EOSINOPHILS % (AUTO) 0.3 % (0.0-6.0); HEMATOCRIT 38 % (39-51); HEMOGLOBIN 12.4 g/dL (13.5-17.5); LYMPHOCYTES # (AUTO) 0.5 /CMM (0.8-4.8); LYMPHOCYTES % (AUTO) 5.2 % (20.0-44.0); MEAN CORPUSCULAR HGB CONC 32 g/dl (31.0-36.0); MEAN CORPUSCULAR VOLUME 97 fL (80-96); MONOCYTES # (AUTO) 1.1 /CMM (0.1-1.30); NEUTROPHILS # (AUTO) 8.2 /CMM (1.8-8.9); NEUTROPHILS % (AUTO) 83.4 % (43.0-81.0); PLATELET COUNT (AUTO) 58 /CMM (150-450); RED BLOOD CELL COUNT(AUTO) 3.94 MIL/uL (4.5-6.0); WHITE BLOOD COUNT (AUTO) 9.8 K/uL (4.3-11.0)
[2018-12-23 10:11] LABS: MAGNESIUM 2.5 mg/dL (1.8-2.4)
[2018-12-23 10:12] LABS: PHOSPHORUS 2.7 mg/dL (2.5-4.9)
[2018-12-23 10:23] LABS: ALANINE AMINOTRANSFERASE 1274 U/L (12-78); ALBUMIN 2.5 g/dL (3.4-5.0); ALKALINE PHOSPHATASE 153 U/L (46-116); ASPARTATE AMINOTRANSFERASE 205 U/L (15-37); BILIRUBIN,TOTAL 1.7 mg/dL (0.2-1.0); CALCIUM, SERUM 8.8 mg/dL (8.5-10.1); CARBON DIOXIDE 27 mmol/L (21-32); CHLORIDE 104 mmol/L (98-107); CREATININE 1.1 mg/dL (0.6-1.3); GLUCOSE 221 mg/dL (74-106); SODIUM SERUM 139 mmol/L (136-145); UREA NITROGEN, BLOOD 36 mg/dL (7-18)
--- NOTE | 2018-12-23 11:00 | NUR ---
MS RN NOTE PER DIETARY OK TO GIVE ENSURE, ORDER CARRIED OUT
[2018-12-23] MEDS: ENSURE ENLIVE CHOC 237 ML CAN PO SCH ×2 (11:30→17:54)
[2018-12-23 11:37] LABS: BILIRUBIN,DIRECT 0.7 mg/dL (0.0-0.2); BILIRUBIN,TOTAL 1.7 mg/dL (0.2-1.0)
--- NOTE | 2018-12-23 12:05 | NUR ---
MS RN NOTE UNABLE TO DO MRCP PATIENT HAS BATTERY ON SPINE SPOKE WITH AWARE OF THAT , SPOKE WITH PAT AWARE OF IT WILL F\U
--- NOTE | 2018-12-23 13:51 | NUR ---
MS RN NOTE WITH PT ABLE TO SIT AT EDGE OF BED ,WILL CONT TO MONITOR CLOSELY
--- NOTE | 2018-12-23 14:49 | NUR ---
MS RN NOTES RECIEVED CALL FROM [email or web address]. STATED THAT SHE CALLED DR. ANDERSON THE DOCTOR THAT INSERTED THE PAIN MANAGEMENT PUMP IN BACK OF THE PATIENT. PT UNABLE TO DO MRI AT THIS TIME. THE DEVICE IS NOT COMPATIBLE TO DO MRI. OBDULIO RN,TRAUMA DIRECTOR NOTIFIED AND ALSO GAVE RESULTS OF THE BILIRUBIN.
[2018-12-23] MEDS: HYDROCODONE/APAP 10/325MG 1 EA TABLET PO PRN ×2 (15:08→21:44)
[2018-12-23] MEDS: PANTOPRAZOLE 40 MG VIAL IV SCH (15:14)
[2018-12-23] MEDS: IV NS 0.9% 1,000 ML IV PRN (15:55)
[2018-12-23 16:00] VITALS: BP 124/80
--- NOTE | 2018-12-23 17:30 | NUR ---
MS RN NOTES DURING ROUNDS NOTED DRESSING ON L LEG WITH DRAINAGE YELLOWISH IN COLOR STATUS POST ORIF ON 12/17/18. CALLED DR. QUINN PROSPECT DOCTOR. STATED OK TO CHANGE DRESSING AND HE WILL SEE HIM TOMORROW.
--- NOTE | 2018-12-23 17:41 | NUR ---
MS RN NOTES OFFERED TO CHANGE DRESSING X2. BUT PATIENT REFUSED. STATED IM COMFORTABLE NOW AND DONT WANT TO BE BOTHERED AT THIS TIME. EXPLAINED RISK AND BENEFITS AND STILL REFUSED. WANT TO CHANGE DRESSING TOMORROW. ALSO WILL CONTINUE TO ENCOURAGE DRESSING CHANGE.
--- NOTE | 2018-12-23 18:52 | NUR ---
MS RN NOTES SPOKE TO DR. AYAN VASQUEZ WITH ORDERS TO D/C MRCP ORDER. MRCP CANNOT BE DONE DUE TO THE SPINAL STIMULATOR THAT THE PATIENT HAS.
--- NOTE | 2018-12-23 19:03 | NUR ---
MS RN CLOSING NOTES PATIENT AWAKE IN BED WITH AT BEDSIDE. NO SOB. NO ACUTE DISTRESS AT THIS TIME. PATIENT EDUCATED EXTENSIVELY REGARDING RISKS AND CONSEQUENCES OF REFUSING REPOSITIONING. PATIENT VERBALIZED UNDERSTANDING. SAFETY MEASURES OBSERVED. ALL NEEDS ANTICIPATED. KEPT CLEAN AND DRY. WILL CONTINUE PLAN OR CARE. ENDORSED TO NEXT SHIFT ACCORDINGLY.
--- NOTE | 2018-12-23 19:30 | NUR ---
MS RN NOTE: RECEIVED PT ON BED ALERT AND ORIENTED X3. ABLE TO MAKE NEEDS KNOWN. AT BEDSIDE DURING THIS TIME. NO APPARENT DISTRESS NOTED. COMPLAINED OF PAIN ON LEFT LEG, PRN PAIN MEDS WILL BE GIVEN. ON 3LPM NASAL CANNULA, NO SOB NOTED, SATURATING 98-100%. IV ON RIGHT HAND #20 INTACT AND PATENT, IVF INFUSING WELL. RASHID CATH INTACT AND PATENT, DRAINING WELL. KEPT CLEAN, DRY AND COMFORTABLE. SAFETY AND FALL PRECAUTIONS OBSERVED AND MAINTAINED. WILL CONTINUE TO MONITOR PT.
[2018-12-23 20:00] VITALS: BP 133/92
[2018-12-23] MEDS: TRAZODONE 50 MG TABLET PO SCH (21:44)
[2018-12-24] MEDS: IPRATROPIUM NEB FS 0.5 MG/2.5 ML AMPUL.NEB NEB SCH ×6 (01:30→19:47)
[2018-12-24] MEDS: ALBUTEROL HALF STRENGTH 1.25 MG/3 ML VIAL.NEB NEB SCH ×4 (01:30→19:47)
[2018-12-24 04:00] VITALS: BP 113/83
[2018-12-24] MEDS: PIPERACILLIN /TAZOBACTAM 3.375 G in IV D5W 100 ML IV SCH (04:00)
--- NOTE | 2018-12-24 04:07 | NUR ---
MS RN NOTE: 0400 ZOSYN NOT GIVEN BECAUSE PER YUSRA FLORENTINO NOTES "ZOSYN STOPPED FOR THROMBOCYTOPENIA". WILL ENDORSE TO DAY SHIFT RN TO FOLLOW UP.
--- NOTE | 2018-12-24 06:30 | NUR ---
MS RN NOTE: NO CHANGES NOTED THROUGHOUT THE SHIFT. NO APPARENT DISTRESS NOTED. DENIES PAIN AND DISCOMFORT AT THIS TIME. PT REFUSED TO BE REPOSITIONED AND REFUSED TO HAVE HIS DRESSING CHANGED ON THE LEFT LEG, PER PT "I WANT THE DOCTOR TO DO THE DRESSING CHANGE IN THE MORNING". EXPLAINED RISKS AND BENEFITS BUT PT STILL REFUSED. CHARGE NURSE MADE AWARE. KEPT CLEAN, DRY AND COMFORTABLE. SAFETY AND FALL PRECAUTIONS OBSERVED AND MAINTAINED. WILL ENDORSE TO DAY SHIFT RN FOR CONTINUITY OF CARE.
[2018-12-24 08:00] VITALS: BP 129/90
[2018-12-24] MEDS ORDERED: FUROSEMIDE 20 MG/2 ML VIAL IV ONE (08:30)
[2018-12-24] MEDS: ENSURE ENLIVE CHOC 237 ML CAN PO SCH ×2 (08:58→17:45)
[2018-12-24] MEDS ORDERED: LEVOFLOXACIN 750 MG /D5W 150ML 750 MG in PREMIX 1 EA IV SCH (09:00)
[2018-12-24] MEDS: PREGABALIN 100 MG CAPSULE PO SCH ×3 (09:05→17:20)
[2018-12-24] MEDS: ropiniROLE 0.5 MG TABLET PO SCH (09:05)
[2018-12-24] MEDS: CARVEDILOL 12.5 MG TABLET PO SCH ×2 (09:05→17:20)
[2018-12-24] MEDS: MEMANTINE HCL 5 MG TABLET PO SCH ×2 (09:05→17:19)
[2018-12-24] MEDS: Z GUARD REMEDY 2 OZ OINT TP SCH (09:06)
[2018-12-24] MEDS ORDERED: METRONIDAZOLE 500MG/ NS 100ML 500 MG in PREMIX 1 EA IV SCH (10:00)
[2018-12-24 12:00] VITALS: BP 129/90
[2018-12-24] MEDS: WARFARIN SODIUM 2 MG TABLET PO SCH (17:24)
[2018-12-24 20:00] VITALS: BP 120/70
--- NOTE | 2018-12-24 20:00 | NUR ---
RN/MS NOTES: RECEIVED PT. IN BED ALERT AND ORIENTED X 3. ABLE TO MAKE NEEDS KNOWN. DENIES ANY C/O PAIN OR SOB AT PRESENT. W/ IV ON RT. HAND # 20 PATENT AND INTACT W/ NO S/S OF INFECTION/INFILTRATION NOTED. W/ F/C PATENT AND INTACT DRAINING LAURA COLOR URINE. SAFETY AND FALL PRECAUTIONS MAINTAINED. WILL CONTINUE TO MONITOR.
[2018-12-24] MEDS: TRAZODONE 50 MG TABLET PO SCH (21:28)
[2018-12-25] MEDS: IPRATROPIUM NEB FS 0.5 MG/2.5 ML AMPUL.NEB NEB SCH ×4 (00:36→19:54)
[2018-12-25] MEDS: ALBUTEROL HALF STRENGTH 1.25 MG/3 ML VIAL.NEB NEB SCH ×4 (00:36→19:54)
[2018-12-25 04:00] VITALS: BP 127/70
--- NOTE | 2018-12-25 07:09 | NUR ---
RN/MS NOTES: REPORT GIVEN TO NEXT SHIFT NURSE FOR COLIN.
--- NOTE | 2018-12-25 07:30 | NUR ---
RN MS OPENING NOTES BEDSIDE REPORT GIVEN PATIENT ASLEEP ABLE TO AROUSE WITH VOICE AND TOUCH. A/OX3 .NO SIGNS OR SYMPTOMS OF RESPIRATORY DISTRESS OR ACUTE PAIN ON 2 LTRS NASAL CANNULA. RASHID CATH PATENT AND DRAINING ORANGE CLEAR URINE. (L) LEG IMMOBILIZER IN PLACE WEEPING NOTED TO LLE. IV TO R HAND # 20 GAUGE SALINE LOCK. SAFETY PRECAUTIONS IN PLACE BED IN LOW POSITION CALL LIGHT WITHIN REACH. WILL F/U WITH STAFF SUBMARINE WARFARE OFFICER IN REGARDS TO DISCHARGE. WILL CONT TO MONITOR
[2018-12-25 08:00] VITALS: BP 114/79
[2018-12-25] MEDS: ENSURE ENLIVE CHOC 237 ML CAN PO SCH ×2 (08:29→16:47)
[2018-12-25] MEDS: MEMANTINE HCL 5 MG TABLET PO SCH ×2 (08:30→16:39)
[2018-12-25] MEDS: CARVEDILOL 12.5 MG TABLET PO SCH ×2 (08:30→16:39)
[2018-12-25] MEDS: PREGABALIN 100 MG CAPSULE PO SCH ×3 (08:30→16:39)
[2018-12-25] MEDS: ropiniROLE 0.5 MG TABLET PO SCH (08:30)
[2018-12-25] MEDS: Z GUARD REMEDY 2 OZ OINT TP SCH (08:37)
[2018-12-25 16:00] VITALS: BP 133/91
[2018-12-25] MEDS: WARFARIN SODIUM 2 MG TABLET PO SCH (16:39)
[2018-12-25] MEDS: HYDROCODONE/APAP 10/325MG 1 EA TABLET PO PRN ×2 (16:46→21:17)
--- NOTE | 2018-12-25 19:26 | NUR ---
RN MS CLOSING NOTES BEDSIDE REPORT GIVEN PATIENT ASLEEP ABLE TO AROUSE WITH VOICE AND TOUCH. A/OX3 .NO SIGNS OR SYMPTOMS OF RESPIRATORY DISTRESS OR ACUTE PAIN ON 2 LTRS NASAL CANNULA. RASHID CATH PATENT AND DRAINING ORANGE CLEAR URINE. (L) LEG IMMOBILIZER IN PLACE WEEPING NOTED TO LLE GILMER CARLGED X2 IV TO R HAND # 20 GAUGE SALINE LOCK. SAFETY PRECAUTIONS IN PLACE BED IN LOW POSITION CALL LIGHT WITHIN REACH. ABLE TO MAKE NEEDS KNOWN AND ALL MET ENDORSED TO NOC
--- NOTE | 2018-12-25 19:57 | NUR ---
RN MS INITIAL NOTES PT AWAKE IN BED, A/OX3 .NO SIGNS OR SYMPTOMS OF RESPIRATORY DISTRESS OR ACUTE PAIN ON 2 LTRS NASAL CANNULA. RASHID CATH PATENT AND DRAINING ORANGE CLEAR URINE. (L) LEG IMMOBILIZER IN PLACE WEEPING NOTED TO LLE. IV TO R HAND # 20 GAUGE SALINE LOCK. SAFETY PRECAUTIONS IN PLACE BED IN LOW POSITION CALL LIGHT WITHIN REACH. FOR DISCHARGE TO [facility]. WILL CONT TO MONITOR
[2018-12-25 20:00] VITALS: BP 110/84
[2018-12-25] MEDS: TRAZODONE 50 MG TABLET PO SCH (21:16)
[2018-12-26] MEDS: ALBUTEROL HALF STRENGTH 1.25 MG/3 ML VIAL.NEB NEB SCH ×4 (01:30→19:27)
[2018-12-26] MEDS: IPRATROPIUM NEB FS 0.5 MG/2.5 ML AMPUL.NEB NEB SCH ×4 (01:30→19:27)
[2018-12-26 04:00] VITALS: BP 116/80
--- NOTE | 2018-12-26 06:16 | NUR ---
RN MS CLOSING NOTES PT ASLEEP IN BED, A/OX3 .NO SIGNS OR SYMPTOMS OF RESPIRATORY DISTRESS OR ACUTE PAIN ON 2 LTRS NASAL CANNULA. RASHID CATH PATENT AND DRAINING ORANGE CLEAR URINE. (L) LEG IMMOBILIZER IN PLACE WEEPING NOTED TO LLE. IV TO R HAND # 20 GAUGE SALINE LOCK. SAFETY PRECAUTIONS IN PLACE BED IN LOW POSITION CALL LIGHT WITHIN REACH. PT REFUSES TO BE WOKEN UP FOR AM CARE. FOR DISCHARGE TO [facility]. WILL CONT TO MONITOR
--- NOTE | 2018-12-26 07:38 | NUR ---
RN MS OPENING NOTES BEDSIDE REPORT GIVEN PATIENT AWAKE RECEIVING BREATHING TREATMENT. A/OX3 .NO SIGNS OR SYMPTOMS OF RESPIRATORY DISTRESS OR ACUTE PAIN RASHID CATH PATENT AND DRAINING ORANGE CLEAR URINE. (L) LEG IMMOBILIZER IN PLACE WEEPING NOTED TO LLE WELL ULE PATIENT STATES IT ALWAYS DOES THIS. CONCERN OF SIZE OF SCROTUM WILL F/U WITH MD IV TO R HAND # 20 GAUGE SALINE LOCK. SAFETY PRECAUTIONS IN PLACE BED IN LOW POSITION CALL LIGHT WITHIN REACH. WILL F/U WITH ASPHALT HEATER TENDER IN REGARDS TO DISCHARGE. WILL CONT TO MONITOR
[2018-12-26 08:00] VITALS: BP 124/74
[2018-12-26 08:07] VITALS: BP 124/74
[2018-12-26] MEDS: MEMANTINE HCL 5 MG TABLET PO SCH ×2 (08:39→17:47)
[2018-12-26] MEDS: ropiniROLE 0.5 MG TABLET PO SCH (08:39)
[2018-12-26] MEDS: PREGABALIN 100 MG CAPSULE PO SCH ×3 (08:39→17:47)
[2018-12-26] MEDS: CARVEDILOL 12.5 MG TABLET PO SCH ×2 (08:39→17:48)
[2018-12-26] MEDS: ENSURE ENLIVE CHOC 237 ML CAN PO SCH ×2 (08:40→17:00)
[2018-12-26] MEDS: Z GUARD REMEDY 2 OZ OINT TP SCH (08:42)
--- NOTE | 2018-12-26 09:00 | NUR ---
RN MS NOTES PATIENT GOWN AND PILLOWS CHANGED D/T WEEPING ON LEFT SIDE. SCROTUM VERY SWOLLEN BUT PATIENT STATES ITS NOT PAINFUL. WILL NOTIFY MD PATIENT WANTS TO SPEAK TO MD IN REGARDS TO SWOLLEN SCROTUM
--- NOTE | 2018-12-26 11:14 | NUR ---
RN NOTES DR RAIN TO SEE PATIENT ORDERED US FOR SCROTAL EDEMA
[2018-12-26] MEDS: HYDROCODONE/APAP 10/325MG 1 EA TABLET PO PRN ×2 (11:51→21:08)
[2018-12-26 12:00] VITALS: BP 124/74
[2018-12-26 16:00] VITALS: BP 108/55
[2018-12-26] MEDS: WARFARIN SODIUM 2 MG TABLET PO SCH (17:47)
--- NOTE | 2018-12-26 17:54 | NUR ---
RN MS NOTES NO SIGNIFICANT CHANGES THROUGHOUT SHIFT. PATIENT A/0 X4 NO SIGNS OR SYMPTOMS OF RESPIRATORY DISTRESS ON 2 LTRS NASAL CANNULA.NO ACUTE PAIN NOTED. INCISION SITE CLEANED CHUCK INTACT NO REDNESS OR DRAINAGE NOTED FROM SITE REPLACED DRY DRESSING WEEPING NOTED TO POLY PATIENT STATES THIS IS NORMAL. CIRCULATION CHECK TO L LEG ABLE TO MOVE AND FEEL TOES. APPETITE GOOD NO NAUSEA VOMITING. SCROTUM ELEVATED FOR COMFORT. RASHID CATH DRAINING CLEAR YELLOW URINE WITH SOME SEDIMENT. IV R HAND #20 SALINE LOCK. [facility] SAFETY PRECAUTIONS IN PLACE BED IN LOW POSITION EMILY TO MAKE NEEDS KNOWN AND ALL MET BY STAFF CALL LIGHT WITHIN REACH
--- NOTE | 2018-12-26 19:26 | NUR ---
RN MS NOTES REPORT ENDORSED TO NOC
[2018-12-26 20:00] VITALS: BP 122/74
--- NOTE | 2018-12-26 20:04 | NUR ---
RN MS INITIAL NOTES PT AWAKE IN BED, A/OX3 .NO SIGNS OR SYMPTOMS OF RESPIRATORY DISTRESS OR ACUTE PAIN ON 2 LTRS NASAL CANNULA. RASHID CATH PATENT AND DRAINING ORANGE CLEAR URINE. (L) LEG IMMOBILIZER IN PLACE WEEPING NOTED TO LLE. IV TO R HAND # 20 GAUGE SALINE LOCK. SAFETY PRECAUTIONS IN PLACE BED IN LOW POSITION CALL LIGHT WITHIN REACH. FOR DISCHARGE TO [facility]. WILL CONT TO MONITOR.
[2018-12-26] MEDS: TRAZODONE 50 MG TABLET PO SCH (21:07)
[2018-12-27] MEDS: IPRATROPIUM NEB FS 0.5 MG/2.5 ML AMPUL.NEB NEB SCH ×2 (01:30→06:58)
[2018-12-27] MEDS: ALBUTEROL HALF STRENGTH 1.25 MG/3 ML VIAL.NEB NEB SCH ×2 (01:30→06:58)
[2018-12-27 04:25] VITALS: BP 126/72
--- NOTE | 2018-12-27 06:15 | NUR ---
RN MS CLOSING NOTES PT ASLEEP IN BED, A/OX3 .NO SIGNS OR SYMPTOMS OF RESPIRATORY DISTRESS OR ACUTE PAIN ON 2 LTRS NASAL CANNULA. RASHID CATH PATENT AND DRAINING ORANGE CLEAR URINE. (L) LEG IMMOBILIZER IN PLACE WEEPING NOTED TO LLE. IV TO R HAND # 20 GAUGE SALINE LOCK. SAFETY PRECAUTIONS IN PLACE BED IN LOW POSITION CALL LIGHT WITHIN REACH. FOR DISCHARGE TO [facility] @ 0900 AM.
--- NOTE | 2018-12-27 07:30 | NUR ---
RN OPENING NOTE RECEIVED PATIENT IN BED ASLEEP, EASILY AROUSABLE. NO COMPLAINS OF ANY PAIN OR SOB. WENT BACK TO SLEEP. WILL BE DC LATER AT 0930 TO GO TO [facility]. HAS A RIGHT HAND #20 SL. ALERT AND ORIENTED X4. ON 3L NC. LEFT FEMUR ORIF. BED LOCKED AND IN LOWEST POSITION. CALL LIGHT WITHIN REACH. WILL CONTINUE TO MONITOR AND FINISH EXIT CARE
[2018-12-27 08:00] VITALS: BP 115/86
[2018-12-27 09:00] VITALS: BP 115/86
[2018-12-27] MEDS: Z GUARD REMEDY 2 OZ OINT TP SCH (09:00)
[2018-12-27] MEDS: CARVEDILOL 12.5 MG TABLET PO SCH (09:00)
[2018-12-27] MEDS: ropiniROLE 0.5 MG TABLET PO SCH (09:00)
[2018-12-27] MEDS: PREGABALIN 100 MG CAPSULE PO SCH (09:00)
[2018-12-27] MEDS: MEMANTINE HCL 5 MG TABLET PO SCH (09:00)
[2018-12-27] MEDS: ENSURE ENLIVE CHOC 237 ML CAN PO SCH (09:04)
--- NOTE | 2018-12-27 09:27 | NUR ---
RN NOTE EXIT CARE DONE. EDUCATION WITH PATIENT AND . CALLED [facility] FOR REPORT, TALKED TO NURSE JUAN. AMBULANCE SHOULD BE HERE AT 0930. WANTED ME TO CHECK THE PATIENT 'S SCROTUM, SWELLING. THEY DID AN US YESTERDAY AND MD AWARE. STILL DC TO [facility].
[2019-01-13] MEDS ORDERED: APIX5TAB PO (11:10)
[2019-01-13] MEDS ORDERED: FURO40TA5 PO (11:10)
[2019-01-13] MEDS ORDERED: NYST15PO4 TP (11:10)
== END 2018-12-27 11:04 | DRG 480 ==
LOC: ER 10:23 → TELE1 12:57 → MEDSG1 12-16 09:00
PROVIDERS: ADMIT Nurse Practitioner Acute Care; ATTEND Internal Medicine Nephrology
PROC: 0QSC04Z Reposition Left Lower Femur with Internal Fixation Device, Open Approach (ICD-10-PCS; principal; 2018-12-17)
DX: S72.402A Unspecified fracture of lower end of left femur, initial encounter for closed fracture (principal); N17.0 Acute kidney failure with tubular necrosis; K72.00 Acute and subacute hepatic failure without coma; D68.59 Other primary thrombophilia; E44.1 Mild protein-calorie malnutrition; I82.411 Acute embolism and thrombosis of right femoral vein; D68.9 Coagulation defect, unspecified; I82.612 Acute embolism and thrombosis of superficial veins of left upper extremity; I27.20 Pulmonary hypertension, unspecified; I25.10 Atherosclerotic heart disease of native coronary artery without angina pectoris; F03.90 Unspecified dementia, unspecified severity, without behavioral disturbance, psychotic disturbance, mood disturbance, and anxiety; I48.0 Paroxysmal atrial fibrillation; Z95.1 Presence of aortocoronary bypass graft; N18.3 Chronic kidney disease, stage 3 (moderate); D69.6 Thrombocytopenia, unspecified; E78.5 Hyperlipidemia, unspecified; I12.9 Hypertensive chronic kidney disease with stage 1 through stage 4 chronic kidney disease, or unspecified chronic kidney disease; G25.81 Restless legs syndrome; R73.9 Hyperglycemia, unspecified; G47.33 Obstructive sleep apnea (adult) (pediatric); D63.8 Anemia in other chronic diseases classified elsewhere; E66.9 Obesity, unspecified; Z68.24 Body mass index [BMI] 24.0-24.9, adult; D72.829 Elevated white blood cell count, unspecified; N50.89 Other specified disorders of the male genital organs; K59.00 Constipation, unspecified; N32.89 Other specified disorders of bladder; Z79.01 Long term (current) use of anticoagulants; W18.30XA Fall on same level, unspecified, initial encounter; Y93.9 Activity, unspecified; Y92.009 Unspecified place in unspecified non-institutional (private) residence as the place of occurrence of the external cause; Z87.891 Personal history of nicotine dependence; Z95.828 Presence of other vascular implants and grafts; Z86.718 Personal history of other venous thrombosis and embolism; Z96.642 Presence of left artificial hip joint; E87.5 Hyperkalemia; I71.4 Abdominal aortic aneurysm, without rupture
CPT/HCPCS: 36415; 71045-TC; 73502; 73552; 74018; 76700-TC; 76705-TC; 76870-TC; 78226; 78582; 80048-TC; 80053-TC; 80061-TC; 80074; 80076-TC; 81000-TC; 82140-TC; 82247-TC; 82248-TC; 82436-TC; 82550-TC; 82570-TC; 82728-TC; 83540-TC; 83735-TC; 83935-TC; 83970; 84100-TC; 84133-TC; 84155; 84155-TC; 84165; 84300-TC; 84439-TC; 84443-TC; 84484-TC; 85025-TC; 85027-TC; 85610-TC; 85730-TC; 86850-TC; 87081-TC; 87086-TC; 93307-TC; 93970-TC; 93971-TC; 93976-TC; 94760-TC; 94799-TC; 97110-TC; 97112-TC; 97530-TC; A4216; A4217; A6253; A6402; A9537; A9540; A9567; C9113; G0378; J0690; J1100; J1170; J1940; J1956; J2270; J2405; J2543; J2704; J3430; J3490; J7030; J7040; J7060; L1830

== ENCOUNTER 2019-01-07 19:09 | Inpatient (IN) | payer MEDICARE, BC ==
[~2019-01-07] VITALS: Ht 182.9 cm; Wt 121.6 kg
[~2019-01-07 19:09] MED LIST: ASCO500T9 PO; ATOR10TA PO; CARV3.122 PO; CYAN100096 PO; Ergocalciferol (Vitamin D 2) PO; FURO40TA5 PO; HYDR-3980 PO; LOSA50TA39 PO; MEMA5TAB15 PO; OXYB10TA PO; PREG200C PO; ROPI0.5T2 PO; TRAZ-214 PO
--- NOTE | 2019-01-07 19:19 | NUR ---
PT BIBPA FROM SNF C/O SOB X2-3 WEEKS. DENIES COUGH, FEVER, DIZZINESS, HEADACHE. PT AAOX4. RESPIRATIONS EVEN AND UNLABORED. NORMALLY 4L O2 NC AT HOME. VITAL SIGNS STABLE. NO ACUTE DISTRESS NOTED AT THIS TIME. IN GOWN AND ON CONTINUOUS TRANSMISSION CALIBRATION ENGINEER, WILL CONTINUE TO MONITOR
--- NOTE | 2019-01-07 19:29 | NUR ---
MD AT BEDSIDE FOR EVALUATION
--- NOTE | 2019-01-07 19:43 | NUR ---
IV INITIATED LAC 18G. LABS DRAWN FROM SITE. SHIPBOARD INTELLIGENCE ANALYST AT BEDSIDE FOR COLLECTION
[2019-01-07 19:47] LABS: BASOPHILS % (AUTO) 0.5 % (0.0-2.0); HEMATOCRIT 37 % (39-51); HEMOGLOBIN 12.2 g/dL (13.5-17.5); LYMPHOCYTES # (AUTO) 0.9 /CMM (0.8-4.8); LYMPHOCYTES % (AUTO) 13.1 % (20.0-44.0); MEAN CORPUSCULAR HGB CONC 33 g/dl (31.0-36.0); MEAN CORPUSCULAR VOLUME 98 fL (80-96); MONOCYTES # (AUTO) 0.7 /CMM (0.1-1.30); MONOCYTES % (AUTO) 10.2 % (2.0-12.0); NEUTROPHILS # (AUTO) 5.2 /CMM (1.8-8.9); NEUTROPHILS % (AUTO) 75.2 % (43.0-81.0); PLATELET COUNT (AUTO) 90 /CMM (150-450); RED BLOOD CELL COUNT(AUTO) 3.79 MIL/uL (4.5-6.0); WHITE BLOOD COUNT (AUTO) 6.9 K/uL (4.3-11.0)
[2019-01-07 20:14] LABS: CHLORIDE 100 mmol/L (98-107); CREATININE 1.4 mg/dL (0.6-1.3); GLUCOSE 165 mg/dL (74-106); POTASSIUM 4.3 mmol/L (3.5-5.1); SODIUM SERUM 140 mmol/L (136-145); UREA NITROGEN, BLOOD 33 mg/dL (7-18)
[2019-01-07 20:33] LABS: ALANINE AMINOTRANSFERASE 58 U/L (12-78); ALBUMIN 2.8 g/dL (3.4-5.0); ALKALINE PHOSPHATASE 99 U/L (46-116); ASPARTATE AMINOTRANSFERASE 22 U/L (15-37); B-TYPE NATRIURETIC PEPTIDE 4010 PG/ML (0-125); BILIRUBIN,DIRECT 0.3 mg/dL (0.0-0.2); BILIRUBIN,TOTAL 0.7 mg/dL (0.2-1.0)
[2019-01-07 20:34] LABS: CARBON DIOXIDE 40 mmol/L (21-32)
[2019-01-07] MEDS ORDERED: FUROSEMIDE 40 MG/4 ML VIAL ONE ×2 (20:40→22:05)
[2019-01-07] MEDS ORDERED: CARVEDILOL 6.25 MG TABLET ONE (20:48)
--- NOTE | 2019-01-07 20:52 | NUR ---
BROUGHT BY RADIOLOGY FOR CT
[2019-01-07] MEDS ORDERED: IOHEXOL-350 100 ML VIAL IV ONE (20:57)
[2019-01-07] MEDS ORDERED: IV NS 0.9% 250 ML IV ONE (20:57)
[2019-01-07] MEDS ORDERED: FUROSEMIDE 40 MG/4 ML VIAL IV ONE ×2 (21:00→22:00)
[2019-01-07] MEDS ORDERED: CARVEDILOL 3.125 MG TABLET PO ONE (21:00)
--- NOTE | 2019-01-07 21:13 | NUR ---
ROMAN COSTA, YUSRA FLORENTINO, DNP PAGED.
--- NOTE | 2019-01-07 21:20 | NUR ---
PT RETURNED FROM CT
--- NOTE | 2019-01-07 21:41 | NUR ---
CALLED DR MCKEE FOR DR TO DR MCGEE; DR ESPARZA PATCHED THROUGH.
--- NOTE | 2019-01-07 22:03 | NUR ---
GAVE REPORT TO ARNEL MARQUEZ FOR COLIN
--- NOTE | 2019-01-07 22:10 | NUR ---
PT TRANSFERRED PER [employer]S PROTOCOL
[2019-01-07 22:20] VITALS: BP 117/62
--- NOTE | 2019-01-07 22:20 | NUR ---
TELE/RN NOTES NEW ADMITTED PATIENT IS A 78 YO ARRIVED FROM ER ON A GURNEY FROM [facility], ALERT, ORIENTED AWAKE. ABLE TO VERBALIZE AND RESPONSIVE PARTICIPATIVE WITH CARE. PAIN OF 3/10 ON LEFT LEG DUE TO FRACTURE AND WITH RECENT SURGERY ON LEFT LEG . ADMITTING DR DR KNIGHT WITH DX OF CHF EXACERBATION SOB EPISODE FOR 2 WEKS WITH HX OF GA, HTN, AFIB, HLD, HIP SX, CABG 2X WITH NKA, TELE AFIB WITH PBB, USING URINAL. WITH BLE EDEMA PITTING X3, LEFT AC GAUGE 18 IV , ELEVATED TROPONIN 0.058 , LOW PLATELET BNP ELEVATE, MEDICATION FROM HOME REPORTED, LASIX GIVEN AT ERM AND HTN , GAVE ORDER AND SAID WILL FOLLOW IN AM. BED LOCKED, BELONGING CHECK, ROOM ORIENTATION, SKIN CHECK. WILL MONITOR.ON 4 LITER OXYGEN VIA NC. SATURATION AT 97%.
--- NOTE | 2019-01-07 22:25 | NUR ---
TELE/RN NOTES RECEIVED MD ORDER TO CONTINUE HOME MEDS
--- NOTE | 2019-01-08 00:21 | NUR ---
TELE/RN NOTES RECEIVED RESULT OF CTA FROM DR OLIVARES THAT PATIENT HAS BILATERAL LULMONARY EMBOLI. LEFT MESSAGE WITH MD KNOX AWAITING FOR ORDER,
--- NOTE | 2019-01-08 00:25 | NUR ---
BILATERAL PULMONARY EMBOLI RESULT GIVEN BY CTA RESULT FROM DR MARSHALL KNIGHT CONTACTED LEFT MESSAGE AWAITING FOR ORDER.
--- NOTE | 2019-01-08 00:54 | NUR ---
TELE/RN NOTES RECEIVED ORDER FROM DR VASQUEZ FOR RESULT OF CTA WITH ORDER LOVENOX 100 MG SQ TWICE A DAY.ORDER TO CARRY OUT.
[2019-01-08 01:03] VITALS: BP 117/62
[2019-01-08] MEDS: ENOXAPARIN SODIUM 100 MG/ML DISP.SYRIN SQ SCH ×3 (01:14→21:13)
[2019-01-08 04:12] VITALS: BP 97/75
[2019-01-08] MEDS ORDERED: ERGOCALCIFEROL (VITAMIN D 2) 50,000 UNIT CAPSULE PO SCH (04:30)
[2019-01-08] MEDS ORDERED: HYDROCODONE/APAP 10/325MG 1 EA TABLET PO PRN ×2 (04:30→08:30)
[2019-01-08] MEDS ORDERED: BISACODYL (5 MG) 5 MG TABLET.DR PO PRN (04:30)
[2019-01-08] MEDS ORDERED: MINERAL OIL 133 ML (PYXIS) 1 EA ENEMA RC ONE (04:30)
[2019-01-08] MEDS ORDERED: MAGNESIUM HYDROXIDE 30 ML UDC PO PRN ×2 (04:30→11:30)
[2019-01-08] MEDS ORDERED: BISACODYL SUPP (10 MG) 10 MG/SUPP.RECT SUPP.RECT RC PRN (04:30)
[2019-01-08] MEDS ORDERED: IPRATROPIUM/ALBUTEROL INHALER IH SCH ×2 (06:00→18:00)
--- NOTE | 2019-01-08 06:37 | NUR ---
323-1 TELE/RN NOTES RECEIVED PATIENT IN BED, RESPIRATIONS EVEN AND UNLABORED WITH 4 LITER OXYGEN, SKIN WARM TO TOUCH, ABLE TO SLEEP INTERMITENTLY. REQUIRE EXTENSIVE ASSISTANCE, KEPT COMFORTABLE. BED LOCKED, CALLLIGHTS WITHIN REACH, WILL MONITOR.
[2019-01-08 06:46] LABS: BASOPHILS % (AUTO) 0.6 % (0.0-2.0); EOSINOPHILS % (AUTO) 1.4 % (0.0-6.0); HEMATOCRIT 33 % (39-51); LYMPHOCYTES % (AUTO) 18.1 % (20.0-44.0); MEAN CORPUSCULAR HGB CONC 33 g/dl (31.0-36.0); MEAN CORPUSCULAR VOLUME 97 fL (80-96); MONOCYTES # (AUTO) 0.7 /CMM (0.1-1.30); MONOCYTES % (AUTO) 12.2 % (2.0-12.0); NEUTROPHILS # (AUTO) 3.8 /CMM (1.8-8.9); NEUTROPHILS % (AUTO) 67.7 % (43.0-81.0); PLATELET COUNT (AUTO) 77 /CMM (150-450); RED BLOOD CELL COUNT(AUTO) 3.43 MIL/uL (4.5-6.0); WHITE BLOOD COUNT (AUTO) 5.7 K/uL (4.3-11.0)
[2019-01-08 06:50] LABS: CALCIUM, SERUM 8.6 mg/dL (8.5-10.1); CARBON DIOXIDE 38 mmol/L (21-32); CHLORIDE 101 mmol/L (98-107); CREATININE 1.3 mg/dL (0.6-1.3); GLUCOSE 140 mg/dL (74-106); PHOSPHORUS 3.9 mg/dL (2.5-4.9); POTASSIUM 3.7 mmol/L (3.5-5.1); SODIUM SERUM 143 mmol/L (136-145); UREA NITROGEN, BLOOD 31 mg/dL (7-18)
[2019-01-08 07:30] VITALS: BP 135/88
--- NOTE | 2019-01-08 07:41 | NUR ---
ADJUNCT PROFESSOR OF ENGLISH OPENING NOTES Received patient on 4L o2 nasal cannula, patient's vital signs stable at this time. Patient denies any pain at this time. Patients left thigh will need a new photograph later on. Patient a/o x4 and has his cellphone with him bed side. Patient bed at the lowest setting, call light within reach.
[2019-01-08] MEDS ORDERED: POTASSIUM CHLORIDE 20 MEQ TAB.PRT.SR PO ONE (08:30)
[2019-01-08] MEDS ORDERED: BUMETANIDE INJ 4 MG in IV D5W 24 ML IV ONE (08:30)
[2019-01-08] MEDS ORDERED: ERGOCALCIFEROL PO SCH (08:30)
[2019-01-08 08:48] LABS: EOSINOPHILS % (MANUAL) 2 % (0-4); LYMPHOCYTES % (MANUAL) 17 % (16-48); MONOCYTES % (MANUAL) 11 % (0-11.0); NEUTROPHILS % (MANUAL) 70 (42-76)
[2019-01-08] MEDS ORDERED: LOSARTAN POTASSIUM 50 MG TABLET PO SCH ×2 (09:00)
[2019-01-08] MEDS ORDERED: PREGABALIN 100 MG CAPSULE PO SCH (09:00)
[2019-01-08] MEDS ORDERED: ropiniROLE 0.5 MG TABLET PO SCH (09:00)
[2019-01-08] MEDS ORDERED: OXYBUTYNIN CHLORIDE ER 5 MG TAB PO SCH (09:00)
[2019-01-08] MEDS ORDERED: DOCUSATE SODIUM 100 MG CAPSULE PO SCH (09:00)
[2019-01-08] MEDS: CARVEDILOL 3.125 MG TABLET PO SCH ×2 (09:31→17:10)
[2019-01-08] MEDS: ropiniROLE 0.5 MG TABLET PO SCH (09:33)
[2019-01-08] MEDS: PREGABALIN 100 MG CAPSULE PO SCH ×2 (09:33→17:10)
[2019-01-08] MEDS: CYANOCOBALAMIN 500 MCG TABLET PO SCH (09:34)
[2019-01-08] MEDS: MEMANTINE HCL 5 MG TABLET PO SCH ×2 (09:35→17:10)
[2019-01-08] MEDS: ASCORBIC ACID 500 MG TABLET PO SCH (09:36)
[2019-01-08] MEDS ORDERED: ERGO500014 PO (10:05)
[2019-01-08] MEDS ORDERED: BISA10SU8 RC (10:05)
[2019-01-08] MEDS ORDERED: IPRA3AMP23 IH (10:05)
[2019-01-08] MEDS ORDERED: NA P133E RC (10:05)
[2019-01-08] MEDS ORDERED: MAGN400O6 PO (10:05)
[2019-01-08] MEDS ORDERED: DOCU-141 PO (10:05)
[2019-01-08] MEDS ORDERED: BISA5TAB10 PO (10:05)
[2019-01-08 12:00] VITALS: BP 142/76
[2019-01-08] MEDS: ALBUTEROL FS 2.5 MG/0.5 ML VIAL.NEB NEB SCH ×2 (13:39→19:34)
[2019-01-08] MEDS: IPRATROPIUM NEB FS 0.5 MG/2.5 ML AMPUL.NEB NEB SCH ×2 (13:39→19:34)
[2019-01-08] MEDS ORDERED: WARFARIN SODIUM 5 MG TABLET PO SCH (17:00)
[2019-01-08] MEDS: ATORVASTATIN 10 MG TABLET PO SCH (17:10)
[2019-01-08] MEDS: OXYBUTYNIN CHLORIDE ER 5 MG TAB PO SCH (17:11)
--- NOTE | 2019-01-08 17:11 | NUR ---
Patient was recently discharged to SNF on 12/27/18 and readmitted less than 14 days with CHF exac. Patient currently resides at [facility] [phone]. He is alert and oriented, requires assistance with adl's. Current dc plan is to return to SNF once discharge. Addendum: 01/08/19 at 1711 by GRISEL ISRAEL RN Amended: Links added.
[2019-01-08] MEDS ORDERED: OXYBUTYNIN CHLORIDE 5 MG TABLET PO SCH (18:00)
[2019-01-08] MEDS ORDERED: FUROSEMIDE 40 MG TABLET PO SCH (18:00)
--- NOTE | 2019-01-08 18:04 | NUR ---
TELE CLOSING RN NOTES Patient remains on 2 L o2 nasal cannula, no sob noted. Patient denies pain at this time. Patient's vital signs remain stable. Patient's medication was given, all needs met. Patient's bed at the lowest setting, call light within reach. Will continue to monitor patient.
--- NOTE | 2019-01-08 19:00 | NUR ---
RN INITIAL NOTES: RECEIVED REPORT FROM NO RN. PT IN BED, AWAKE, A/O X4, ON OXYGEN, STATED HE'S BEEN WAITING FOR HIS BREATHING TREATMENT, STATED IT HELP HIM WHEN HE RECEIVE TREATMENT AN HOUR EARLIER. ON AFIB HR 109. URINAL AT BEDSIDE. BLE SWELLING NOTED. PT FOR BLE DUPLEX IN AM, ON FULL DOSE LOVENOX FOR ANTICOAGULATION PER MD ORDER. DISCUSSED PLAN OF CARE TO PT. PT STATED FOR BREATHING TX, IF HE'S SLEEPING DO NOT WAKE HIM UP FOR THE TX, BUT IF HE'S AWAKE, THEN HE WILL RECEIVE IT. URINAL WITHIN REACH. SAFETY PRECAUTIONS FOR FALL INITIATED, CALL LIGHT IN REACH, WILL CONTINUE MONITORING PT.
--- NOTE | 2019-01-08 19:23 | NUR ---
RN NOTES: CONTACTED RT PT REQUESTING FOR HIS BREATHING TREATMENT, PER DAY ALMA SARABIA, HE CONTACTED RT AT 0600PM BUT NOBODY CAME. CONTACTED RT AGAIN SPOKED WITH SHRADDHA RELAYED PT'S REQUEST, STATED SHE WILL COME UP TO GIVE TREATMENT
[2019-01-08 20:00] VITALS: BP 119/61
[2019-01-08] MEDS: TRAZODONE 50 MG TABLET PO SCH (21:10)
[2019-01-08] MEDS ORDERED: TRAZODONE 50 MG TABLET PO SCH (22:00)
[2019-01-09] VITALS (7 sets, daily range): BP systolic 98–138; BP diastolic 46–88
--- NOTE | 2019-01-09 01:30 | NUR ---
RN NOTES: ASSISTED TEACHER PUBLIC HE[employer] IN PROVIDING BED BATH TO THE PT, COMPLETE LINEN CHANGE PROVIDED
[2019-01-09] MEDS: ALBUTEROL FS 2.5 MG/0.5 ML VIAL.NEB NEB SCH ×4 (01:55→19:32)
[2019-01-09] MEDS: IPRATROPIUM NEB FS 0.5 MG/2.5 ML AMPUL.NEB NEB SCH ×4 (01:55→19:32)
[2019-01-09 06:27] LABS: BASOPHILS % (AUTO) 0.5 % (0.0-2.0); EOSINOPHILS % (AUTO) 0.8 % (0.0-6.0); HEMATOCRIT 34 % (39-51); HEMOGLOBIN 11.2 g/dL (13.5-17.5); LYMPHOCYTES # (AUTO) 0.9 /CMM (0.8-4.8); LYMPHOCYTES % (AUTO) 11.2 % (20.0-44.0); MEAN CORPUSCULAR HGB CONC 33 g/dl (31.0-36.0); MEAN CORPUSCULAR VOLUME 97 fL (80-96); MONOCYTES # (AUTO) 0.7 /CMM (0.1-1.30); MONOCYTES % (AUTO) 9.8 % (2.0-12.0); NEUTROPHILS # (AUTO) 5.9 /CMM (1.8-8.9); NEUTROPHILS % (AUTO) 77.7 % (43.0-81.0); PLATELET COUNT (AUTO) 73 /CMM (150-450); RED BLOOD CELL COUNT(AUTO) 3.48 MIL/uL (4.5-6.0); WHITE BLOOD COUNT (AUTO) 7.6 K/uL (4.3-11.0)
--- NOTE | 2019-01-09 06:33 | NUR ---
RN CLOSING NOTES: PT IN BED, REMAINS ON 4L OXYGEN VIA NC TOLERATED WELL BY PT. DENIES ANY SOB, DENIES CHEST PAIN. REMAINS ON AFIB HR 94. IV ACCESS REMAINS PATENT AND FLUSHING WELL, ON HL. BLE KEPT OFFLOADED. LLE IMMOBILIZER REMAINS IN PLACED. FOR BLE US DOPPLER. VS REMAINS STABLE, NEEDS ATTENDED. SAFETY PRECAUTIONS FOR FALL REMAINS ENGAGED, CALL LIGHT IN REACH, WILL ENDORSE TO DAY RN FOR CONTINUITY OF CARE.
[2019-01-09 06:37] LABS: ALANINE AMINOTRANSFERASE 47 U/L (12-78); ALBUMIN 2.7 g/dL (3.4-5.0); ALKALINE PHOSPHATASE 92 U/L (46-116); ASPARTATE AMINOTRANSFERASE 15 U/L (15-37); BILIRUBIN,TOTAL 0.8 mg/dL (0.2-1.0); CALCIUM, SERUM 9.1 mg/dL (8.5-10.1); CARBON DIOXIDE 39 mmol/L (21-32); CHLORIDE 99 mmol/L (98-107); CREATININE 1.3 mg/dL (0.6-1.3); GLUCOSE 114 mg/dL (74-106); PHOSPHORUS 3.3 mg/dL (2.5-4.9); POTASSIUM 3.9 mmol/L (3.5-5.1); SODIUM SERUM 141 mmol/L (136-145); TOTAL PROTEIN, SERUM 5.7 g/dL (6.4-8.2); UREA NITROGEN, BLOOD 34 mg/dL (7-18)
[2019-01-09 06:58] LABS: BAND % (MANUAL) 2 % (0.0-5.0); EOSINOPHILS % (MANUAL) 1 % (0-4); LYMPHOCYTES % (MANUAL) 9 % (16-48); MONOCYTES % (MANUAL) 12 % (0-11.0); NEUTROPHILS % (MANUAL) 76 (42-76)
--- NOTE | 2019-01-09 08:05 | NUR ---
RN NOTES PT IN BED, RESTING ON OXYGEN NC AT 4L. PT AWAKE ALERT AND ORIENTED X 3. PT WITH LEFT LEG PAIN 4/10 WILL CONTINUE TO MONITOR. PT NOT EXPERIENCING SOB OR IN ANY ACUTE DISTRESS. VITAL SIGNS REMAIN STABLE. URINAL AT BEDSIDE. PT BLE REMAIN OFFLOADED. PT BED LOWERED, LOCK, AND CALL LIGHT WITHIN REACH.
[2019-01-09] MEDS ORDERED: BUMETANIDE INJ 8 MG in IV NS 0.9% 48 ML IV ONE (08:30)
[2019-01-09] MEDS: ENOXAPARIN SODIUM 100 MG/ML DISP.SYRIN SQ SCH ×2 (09:00→22:14)
[2019-01-09] MEDS: POTASSIUM CHLORIDE 20 MEQ TAB.PRT.SR PO SCH ×2 (09:01→10:27)
[2019-01-09] MEDS: CYANOCOBALAMIN 500 MCG TABLET PO SCH (09:01)
[2019-01-09] MEDS: PREGABALIN 100 MG CAPSULE PO SCH ×2 (09:01→16:18)
[2019-01-09] MEDS: ASCORBIC ACID 500 MG TABLET PO SCH (09:01)
[2019-01-09] MEDS: ropiniROLE 0.5 MG TABLET PO SCH (09:01)
[2019-01-09] MEDS: CARVEDILOL 3.125 MG TABLET PO SCH ×2 (09:02→17:00)
[2019-01-09] MEDS: MEMANTINE HCL 5 MG TABLET PO SCH ×2 (09:02→16:18)
[2019-01-09] MEDS: LACTULOSE 10 G/15 ML UDC (PYXIS) PO PRN ×2 (10:27→18:27)
--- NOTE | 2019-01-09 15:40 | NUR ---
MS MARQUEZ NOTES ULTRASOUND RESULTS NOTED NOTIFIED DR. ARTEMIO BRUMFIELD PATIENT WAS POSITIVE OF DVT ON RIGHT LOWER EXTREMITY NO NEW ORDERS GIVEN. WILL CONTINUE TO MONITOR. Addendum: 01/09/19 at 1710 by SHREYAS DURAN RN CONTINUE LOVENOX 100MG TWICE DAILY
[2019-01-09] MEDS: BISACODYL SUPP (10 MG) 10 MG/SUPP.RECT SUPP.RECT RC PRN (16:18)
[2019-01-09] MEDS ORDERED: LACTULOSE 10 G/15 ML UDC (PYXIS) PO ONE (17:30)
[2019-01-09] MEDS ORDERED: SORBITOL SOLUTION 30 ML PO ONE (17:30)
[2019-01-09] MEDS: OXYBUTYNIN CHLORIDE ER 5 MG TAB PO SCH (18:27)
[2019-01-09] MEDS: ATORVASTATIN 10 MG TABLET PO SCH (18:27)
[2019-01-09] MEDS ORDERED: IV NS 0.9% 1,000 ML IV ONE (19:00)
--- NOTE | 2019-01-09 19:00 | NUR ---
MS RN NOTES PATIENT IN BED RESTING AT BEDSIDE. PATIENT ALERT, ORIENTED X3. PATIENT COMPLAINED OF CONSTIPATION MD MADE AWARE ORDERS RECEIVED PATIENT NOTED WITH BM X1. PATIENT STILL COMPLAINS OF CONSTIPATION AND PAIN TO ABDOMEN. ALL DUE MEDICATIONS ADMINISTERED. ALL NEEDS MET. WILL ENDORSE CARE TO PM SHIFT.
[2019-01-09] MEDS ORDERED: IV NS 0.9% 1,000 ML IV PRN (19:30)
--- NOTE | 2019-01-09 19:45 | NUR ---
RN OPENING NOTES RECEIVED REPORT FROM DAYSHIFT RN, SHREYAS. FOUND Pt AWAKE, RESTING IN BED. RESPIRATIONS EVEN AND UNLABORED. Pt IS A/OX3, VERBAL, ABLE TO MAKE NEEDS KNOWN, PER REPORT CAN BE FORGETFUL. NO S/S OF ACUTE DISTRESS OR SOB NOTED. IV ACCESS ON LAC #18G @TKO. SAFETY MEASURES IN PLACE. BED LOW, LOCKED, HOB ELEVATED, SIDE RAILS UP, CALL LIGHT AND BEDSIDE TABLE WITHIN REACH. WILL CONTINUE TO MONITOR Pt's CONDITION AND SAFETY THROUGHOUT THE NIGHT.
[2019-01-09] MEDS: TRAZODONE 50 MG TABLET PO SCH (22:13)
--- NOTE | 2019-01-09 22:30 | NUR ---
RN NOTES CONSENT FOR CT ABD/PELVIS WITH CONTRAST SIGNED BY PATIENT. PLACED IN CHART.
[2019-01-10] MEDS: IPRATROPIUM NEB FS 0.5 MG/2.5 ML AMPUL.NEB NEB SCH ×4 (01:30→20:43)
[2019-01-10] MEDS: ALBUTEROL FS 2.5 MG/0.5 ML VIAL.NEB NEB SCH ×4 (01:30→20:43)
--- NOTE | 2019-01-10 06:50 | NUR ---
RN CLOSING NOTES NO SIGNIFICANT CHANGES IN Pt's CONDITION. Pt REMAINS STABLE AT THIS TIME. NO S/S OF ACUTE DISTRESS OR SOB NOTED DURING THE NIGHT. ALL NEEDS MET AND ATTENDED TO. SAFETY MEASURES IN PLACE. BED LOW, LOCKED, HOB ELEVATED, SIDE RAILS UP, CALL LIGHT AND BEDSIDE TABLE WITHIN REACH. WILL ENDORSE TO DAYSHIFT RN FOR Pt's COLIN.
--- NOTE | 2019-01-10 06:57 | NUR ---
RN NOTES Pt REFUSED AM LAB DRAW THIS MORNING. Pt TOLD LAB TO COME BACK AFTER BFAST.
--- NOTE | 2019-01-10 07:40 | NUR ---
RN medsurgavin opening notes PT is alert and oriented X3. PT is resting in bed comfortably. No sign of any distress or pain. NO SOB. No nausea or vomiting at this time. IV is intact at left AC TKO. Safety precautions is maintained. Bed at low position and call light is within reach. Will continue to monitor.
[2019-01-10 08:00] VITALS: BP 111/73
[2019-01-10] MEDS: CARVEDILOL 3.125 MG TABLET PO SCH ×2 (09:00→16:25)
[2019-01-10] MEDS: ropiniROLE 0.5 MG TABLET PO SCH (09:17)
[2019-01-10] MEDS: MEMANTINE HCL 5 MG TABLET PO SCH ×2 (09:18→16:16)
[2019-01-10] MEDS: PREGABALIN 100 MG CAPSULE PO SCH ×2 (09:18→16:16)
[2019-01-10] MEDS: ASCORBIC ACID 500 MG TABLET PO SCH (09:18)
[2019-01-10] MEDS: CYANOCOBALAMIN 500 MCG TABLET PO SCH (09:18)
[2019-01-10] MEDS: LACTULOSE 10 G/15 ML UDC (PYXIS) PO PRN (09:19)
[2019-01-10] MEDS: APIXABAN 5 MG TABLET PO SCH ×2 (09:33→16:18)
[2019-01-10 09:56] LABS: BASOPHILS % (AUTO) 0.5 % (0.0-2.0); EOSINOPHILS % (AUTO) 0.6 % (0.0-6.0); HEMATOCRIT 33 % (39-51); HEMOGLOBIN 11.1 g/dL (13.5-17.5); LYMPHOCYTES # (AUTO) 0.8 /CMM (0.8-4.8); MEAN CORPUSCULAR HGB CONC 33 g/dl (31.0-36.0); MEAN CORPUSCULAR VOLUME 97 fL (80-96); MONOCYTES # (AUTO) 0.6 /CMM (0.1-1.30); MONOCYTES % (AUTO) 9.9 % (2.0-12.0); NEUTROPHILS # (AUTO) 4.9 /CMM (1.8-8.9); PLATELET COUNT (AUTO) 77 /CMM (150-450); RED BLOOD CELL COUNT(AUTO) 3.42 MIL/uL (4.5-6.0); WHITE BLOOD COUNT (AUTO) 6.4 K/uL (4.3-11.0)
[2019-01-10 10:20] LABS: ALANINE AMINOTRANSFERASE 44 U/L (12-78); ALBUMIN 2.7 g/dL (3.4-5.0); ALKALINE PHOSPHATASE 89 U/L (46-116); ASPARTATE AMINOTRANSFERASE 17 U/L (15-37); BILIRUBIN,TOTAL 0.8 mg/dL (0.2-1.0); CALCIUM, SERUM 9.2 mg/dL (8.5-10.1); CHLORIDE 100 mmol/L (98-107); CREATININE 1.6 mg/dL (0.6-1.3); GLUCOSE 162 mg/dL (74-106); MAGNESIUM 1.9 mg/dL (1.8-2.4); PHOSPHORUS 3.5 mg/dL (2.5-4.9); POTASSIUM 3.6 mmol/L (3.5-5.1); SODIUM SERUM 142 mmol/L (136-145); TOTAL PROTEIN, SERUM 5.9 g/dL (6.4-8.2); UREA NITROGEN, BLOOD 32 mg/dL (7-18)
[2019-01-10 10:27] LABS: CARBON DIOXIDE 42 mmol/L (21-32)
[2019-01-10 11:03] LABS: LYMPHOCYTES % (MANUAL) 17 % (16-48); MONOCYTES % (MANUAL) 6 % (0-11.0); NEUTROPHILS % (MANUAL) 77 (42-76)
--- NOTE | 2019-01-10 11:53 | NUR ---
RN MS NOTES DR. GERARD INFORMED OF PT'S LATEST CREATININE RESULT, PER MD OK TO PROCEED WITH CT OF ABDOMEN AND PELVIS,
[2019-01-10] MEDS ORDERED: IV NS 0.9% 1,000 ML IV PRN (12:39)
[2019-01-10] MEDS ORDERED: CT SWABBABLE VALVE TRANS SET 1 EA INFUS.SET MC ONE (14:43)
[2019-01-10] MEDS ORDERED: IOHEXOL-300 100 ML VIAL IV ONE (14:43)
[2019-01-10] MEDS ORDERED: IV NS 0.9% 250 ML IV ONE (14:43)
--- NOTE | 2019-01-10 15:20 | NUR ---
RN medsurg notes PT complaining of constipation. DR. Gopi Bacon ordered sorbitol and sennosides for constipation. PT verbalize understanding.
[2019-01-10] MEDS ORDERED: SORBITOL SOLUTION 30 ML PO PRN (15:30)
[2019-01-10 16:00] VITALS: BP 105/59
[2019-01-10] MEDS ORDERED: SENNOSIDES/DOCUSATE SODIUM 1 TAB TABLET PO PRN (16:00)
[2019-01-10] MEDS: ATORVASTATIN 10 MG TABLET PO SCH (17:48)
[2019-01-10] MEDS: BISACODYL SUPP (10 MG) 10 MG/SUPP.RECT SUPP.RECT RC PRN (18:29)
--- NOTE | 2019-01-10 19:00 | NUR ---
RN medsurg closing notes PT is alert and oriented X4. Pt is resting in bed watching tv. Pt denies any pain at this time. PT remains in 2 L NC. NO SOB. NO nausea and vomiting. PT had a bowel movement today. All meds have been given including the PRN meds and all needs met. IV on right hand, patent, intact and is infusing well. Bed at low position and call light is within reach. Will endorse to night nurse.
--- NOTE | 2019-01-10 19:43 | NUR ---
ALERT AND ORIENTATED X4 SPEECH CLEAR CONCERNED ABOUT BEING CONSTIPATED , SUPPOSTORY GIVEN DAY SHIFT BM PENDING. O2 2 LITERS NO SEEN SOB
[2019-01-10] MEDS: TRAZODONE 50 MG TABLET PO SCH (21:22)
[2019-01-11] MEDS: IPRATROPIUM NEB FS 0.5 MG/2.5 ML AMPUL.NEB NEB SCH ×4 (01:30→19:20)
[2019-01-11] MEDS: ALBUTEROL FS 2.5 MG/0.5 ML VIAL.NEB NEB SCH ×4 (01:30→19:20)
--- NOTE | 2019-01-11 05:16 | NUR ---
closing notes: HAD A LARGE SOFT BROWN BM ALERT ND ORIENTATED X4 PLEASANT AND COOPERATIVE THRU THE NIGHT SLEPT FOR 9 HOURS OUT OF THE 12 HOURS THIS SHIFT CONTINENT NO SOB O2 3 LITERS SATS ABOVE 92%
[2019-01-11 06:04] VITALS: BP 122/71
[2019-01-11 06:59] LABS: BASOPHILS % (AUTO) 0.4 % (0.0-2.0); EOSINOPHILS % (AUTO) 1.1 % (0.0-6.0); HEMATOCRIT 35 % (39-51); HEMOGLOBIN 11.5 g/dL (13.5-17.5); LYMPHOCYTES % (AUTO) 15.7 % (20.0-44.0); MEAN CORPUSCULAR HGB CONC 33 g/dl (31.0-36.0); MEAN CORPUSCULAR VOLUME 96 fL (80-96); MONOCYTES # (AUTO) 0.7 /CMM (0.1-1.30); MONOCYTES % (AUTO) 10.6 % (2.0-12.0); NEUTROPHILS # (AUTO) 4.6 /CMM (1.8-8.9); NEUTROPHILS % (AUTO) 72.2 % (43.0-81.0); PLATELET COUNT (AUTO) 85 /CMM (150-450); WHITE BLOOD COUNT (AUTO) 6.3 K/uL (4.3-11.0)
[2019-01-11 07:07] LABS: CALCIUM, SERUM 9.5 mg/dL (8.5-10.1); CHLORIDE 100 mmol/L (98-107); CREATININE 1.3 mg/dL (0.6-1.3); GLUCOSE 126 mg/dL (74-106); PHOSPHORUS 3.7 mg/dL (2.5-4.9); POTASSIUM 3.9 mmol/L (3.5-5.1); SODIUM SERUM 144 mmol/L (136-145); UREA NITROGEN, BLOOD 31 mg/dL (7-18)
--- NOTE | 2019-01-11 07:30 | NUR ---
RN MS NOTES PT IN BED, AWAKE, ALERT AND ORIENTED, NO COMPLAINT OF PAIN AT THIS TIME, RESPIRATIONS NORMAL AND NOT LABORED, CALL LIGHT WITHIN REACH, NEEDS ATTENDED, KEPT COMFORTABLE IN BED.
[2019-01-11 07:43] LABS: CARBON DIOXIDE 41 mmol/L (21-32)
[2019-01-11 08:00] VITALS: BP 120/71
[2019-01-11 08:17] LABS: BAND % (MANUAL) 1 % (0.0-5.0); EOSINOPHILS % (MANUAL) 2 % (0-4); LYMPHOCYTES % (MANUAL) 17 % (16-48); MONOCYTES % (MANUAL) 6 % (0-11.0); NEUTROPHILS % (MANUAL) 74 (42-76)
[2019-01-11] MEDS: MEMANTINE HCL 5 MG TABLET PO SCH ×2 (08:41→17:04)
[2019-01-11] MEDS: ASCORBIC ACID 500 MG TABLET PO SCH (08:41)
[2019-01-11] MEDS: OXYBUTYNIN CHLORIDE 5 MG TABLET PO SCH ×2 (08:41→17:04)
[2019-01-11] MEDS: CYANOCOBALAMIN 500 MCG TABLET PO SCH (08:41)
[2019-01-11] MEDS: PREGABALIN 100 MG CAPSULE PO SCH ×2 (08:41→17:04)
[2019-01-11] MEDS: ropiniROLE 0.5 MG TABLET PO SCH (08:41)
[2019-01-11] MEDS: CARVEDILOL 3.125 MG TABLET PO SCH ×2 (08:42→17:00)
[2019-01-11] MEDS: APIXABAN 5 MG TABLET PO SCH ×2 (08:43→17:07)
--- NOTE | 2019-01-11 09:58 | NUR ---
RN MS NOTES PT SEEN AND EXAMINED BY DR. RAIN, PT 'S QUESTIONS ANSWERED BY MD, PLAN OF CARE DISCUSSED, VERBALIZED UNDERSTANDING.
--- NOTE | 2019-01-11 13:00 | NUR ---
RN MS NOTES PT COMFORTABLY RESTING IN BED, NO COMPLAINT OF PAIN, NOT IN DISTRESS, CALL LIGHT WITHIN REACH, ASSISTED IN TURNING AND REPOSITIONING, NEEDS ATTENDED.
[2019-01-11 16:00] VITALS: BP 106/73
[2019-01-11] MEDS: ATORVASTATIN 10 MG TABLET PO SCH (17:04)
[2019-01-11] MEDS: HYDROCODONE/APAP 10/325MG 1 EA TABLET PO PRN (17:05)
--- NOTE | 2019-01-11 18:18 | NUR ---
RN MS NOTES PT IN BED, AWAKE, ALERT AND ORIENTED, PAIN MEDICATION GIVEN FOR BACK PAIN, VERBALIZED SOME RELIEF, NOT IN DISTRESS, O2 SAT OF 97% ON 2L O2 VIA N/C, REPOSITIONED FOR COMFORT, DRESSING CHANGE DONE TO LEFT LEG WOUND AND LEFT HIP SURGICAL SITE, STERISTRIPS INTACT, NO BLEEDING OR DRAIN NOTED, PT TOLERATED PROCEDURE WELL, CALL LIGHT WITHIN REACH, ALL NEEDS ATTENDED.
--- NOTE | 2019-01-11 19:40 | NUR ---
RN MS OPENING NOTES PT IN BED AWAKE ALERT ORIENTEDX 4, BREATHING EVEN AND UNLABORED ON 2L O2 SATING AT 97%. NO COMPLAINT OF PAIN OR DISCOMFORT AT THIS TIME, IV ACCESS ON THE R HAND 22G PATENT AND FLUSHING, URINAL AT BEDSIDE. LEG BRACE IN PLACE. BED IN LOWEST LOCKED POSITION, CALL LIGHT WITHIN REACH AT ALL TIMES, WILL CONTINUE TO MONITOR.
[2019-01-11 20:00] VITALS: BP 117/74
[2019-01-11 20:26] VITALS: BP 117/74
[2019-01-11] MEDS ORDERED: HYDROCODONE/APAP 10/325MG 1 EA TABLET PO ONE (21:00)
[2019-01-11] MEDS: TRAZODONE 50 MG TABLET PO SCH (21:56)
[2019-01-12] MEDS: IPRATROPIUM NEB FS 0.5 MG/2.5 ML AMPUL.NEB NEB SCH ×4 (01:30→19:49)
[2019-01-12] MEDS: ALBUTEROL FS 2.5 MG/0.5 ML VIAL.NEB NEB SCH ×4 (01:30→19:49)
[2019-01-12] MEDS: HYDROCODONE/APAP 10/325MG 1 EA TABLET PO PRN (04:43)
--- NOTE | 2019-01-12 06:11 | NUR ---
RN MS CLOSING NOTES PT REMAINS IN BED SLEEPING INTERMITTENTLY, EASILY AROUSED TO NAME CALL , BREATHING EVEN AND UNLABORED ON 2L O2 SATING AT 96%. NO COMPLAINT OF PAIN OR DISCOMFORT AT THIS TIME, IV ACCESS ON THE R HAND 22G PATENT AND FLUSHING, URINAL AT BEDSIDE. LEG BRACE IN PLACE. BED IN LOWEST LOCKED POSITION, CALL LIGHT WITHIN REACH AT ALL TIMES, WILL ENDORSE TO DAY NURSE FOR COLIN
[2019-01-12 06:21] LABS: BASOPHILS % (AUTO) 0.5 % (0.0-2.0); EOSINOPHILS % (AUTO) 1.5 % (0.0-6.0); HEMATOCRIT 35 % (39-51); HEMOGLOBIN 11.4 g/dL (13.5-17.5); LYMPHOCYTES # (AUTO) 0.9 /CMM (0.8-4.8); LYMPHOCYTES % (AUTO) 16.6 % (20.0-44.0); MEAN CORPUSCULAR HGB CONC 33 g/dl (31.0-36.0); MEAN CORPUSCULAR VOLUME 96 fL (80-96); MONOCYTES # (AUTO) 0.6 /CMM (0.1-1.30); MONOCYTES % (AUTO) 10.7 % (2.0-12.0); NEUTROPHILS # (AUTO) 3.9 /CMM (1.8-8.9); NEUTROPHILS % (AUTO) 70.7 % (43.0-81.0); PLATELET COUNT (AUTO) 92 /CMM (150-450); RED BLOOD CELL COUNT(AUTO) 3.61 MIL/uL (4.5-6.0); WHITE BLOOD COUNT (AUTO) 5.5 K/uL (4.3-11.0)
[2019-01-12 06:38] LABS: CALCIUM, SERUM 9.3 mg/dL (8.5-10.1); CARBON DIOXIDE 39 mmol/L (21-32); CHLORIDE 99 mmol/L (98-107); CREATININE 1.4 mg/dL (0.6-1.3); GLUCOSE 141 mg/dL (74-106); POTASSIUM 4.2 mmol/L (3.5-5.1); SODIUM SERUM 142 mmol/L (136-145); UREA NITROGEN, BLOOD 32 mg/dL (7-18)
[2019-01-12 06:39] LABS: PHOSPHORUS 3.9 mg/dL (2.5-4.9)
--- NOTE | 2019-01-12 07:49 | NUR ---
RN MS OPENING NOTES Received patient on 2L nasal cannula. No sob noted, patient denies pain at this time. Patient remains a/o x4. Patient's bed at the lowest setting, call light within reach.
[2019-01-12 07:59] VITALS: BP 131/95
[2019-01-12 08:17] LABS: EOSINOPHILS % (MANUAL) 3 % (0-4); LYMPHOCYTES % (MANUAL) 19 % (16-48); MONOCYTES % (MANUAL) 9 % (0-11.0); NEUTROPHILS % (MANUAL) 69 (42-76)
[2019-01-12] MEDS: MEMANTINE HCL 5 MG TABLET PO SCH ×2 (08:29→16:29)
[2019-01-12] MEDS: OXYBUTYNIN CHLORIDE 5 MG TABLET PO SCH ×2 (08:29→16:29)
[2019-01-12] MEDS: PREGABALIN 100 MG CAPSULE PO SCH ×2 (08:29→16:29)
[2019-01-12] MEDS: ASCORBIC ACID 500 MG TABLET PO SCH (08:29)
[2019-01-12] MEDS: CARVEDILOL 3.125 MG TABLET PO SCH ×2 (08:29→16:29)
[2019-01-12] MEDS: CYANOCOBALAMIN 500 MCG TABLET PO SCH (08:29)
[2019-01-12] MEDS: ropiniROLE 0.5 MG TABLET PO SCH (08:29)
[2019-01-12] MEDS: APIXABAN 5 MG TABLET PO SCH ×2 (08:36→16:30)
--- NOTE | 2019-01-12 12:17 | NUR ---
WOUND CARE CONSULT WOUND CARE RECEIVED CONSULT FOR LEFT POSTERIOR SKIN TEAR, AND REDNESS, IMMOBILITY. WOUND CARE WILL DEFER CONSULT AND TREATMENT PLANS TO PLASTIC SURGICAL TEAM WHO ARE CURRENTLY FOLLOWING. PATIENT WITH EMA AT 14, ALL PRESSURE ULCER PREVENTION MEASURES ARE NOTED TO BE IN PLACE AT THIS TIME. WILL SEE PRN.
[2019-01-12 16:29] VITALS: BP 120/76
[2019-01-12] MEDS: FUROSEMIDE 40 MG TABLET PO SCH (16:29)
[2019-01-12] MEDS: ATORVASTATIN 10 MG TABLET PO SCH (18:13)
--- NOTE | 2019-01-12 18:50 | NUR ---
RN MS CLOSING NOTES Patient remains on 2 L o2, nasal cannula. No sob noted, patient denies pain at this time. Patient's vital sign remains stable. Patient's bed at the lowest setting, call light within reach, patient's needs attended to and all medications were given. Will give bedside report to NOC RN for COLIN.
--- NOTE | 2019-01-12 19:31 | NUR ---
RN MS OPENING NOTES PT IN BED AWAKE ALERT ORIENTEDX 4, BREATHING EVEN AND UNLABORED ON 2L O2 SATING AT 98%. NO COMPLAINT OF PAIN OR DISCOMFORT AT THIS TIME, IV ACCESS ON THE R HAND 22G PATENT AND FLUSHING, URINAL AT BEDSIDE. LEG BRACE IN PLACE. BED IN LOWEST LOCKED POSITION, CALL LIGHT WITHIN REACH AT ALL TIMES, WILL CONTINUE TO MONITOR.
[2019-01-12 20:00] VITALS: BP 106/70
[2019-01-12] MEDS: TRAZODONE 50 MG TABLET PO SCH (21:42)
[2019-01-12] MEDS: NYSTATIN TOP POWDER 15 GM BOTTLE TP SCH (21:43)
[2019-01-13] MEDS: ALBUTEROL FS 2.5 MG/0.5 ML VIAL.NEB NEB SCH ×4 (01:30→20:08)
[2019-01-13] MEDS: IPRATROPIUM NEB FS 0.5 MG/2.5 ML AMPUL.NEB NEB SCH ×4 (01:30→20:08)
--- NOTE | 2019-01-13 06:33 | NUR ---
RN MS CLOSING NOTES PT REMAINS IN BED AWAKE ALERT ORIENTEDX 4, BREATHING EVEN AND UNLABORED ON 2L O2 SATING AT 97%. NO COMPLAINT OF PAIN OR DISCOMFORT AT THIS TIME, IV ACCESS ON THE R HAND 22G PATENT AND FLUSHING, URINAL AT BEDSIDE. LEG BRACE IN PLACE. BED IN LOWEST LOCKED POSITION, REFUSING LABS, CALL LIGHT WITHIN REACH AT ALL TIMES, WILL ENDORSE TO DAY NURSE FOR COLIN
--- NOTE | 2019-01-13 07:29 | NUR ---
MS/RN OPENING NOTE PATIENT IN BED IN STABLE CONDITION. A/O X 3. NO SIGNS OF ACUTE DISTRESS. NO COMPLAIN OF PAIN OR DISCOMFORT. ON OXYGEN VIA NC AT 2LPM. TOLERATING WELL. ALL NEEDS ATTENDED TO. CALL LIGHT WITHIN REACH. WILL CONTINUE TO MONITOR TO ENSURE SAFETY.
[2019-01-13 08:00] VITALS: BP 113/69
[2019-01-13] MEDS: ropiniROLE 0.5 MG TABLET PO SCH (09:10)
[2019-01-13] MEDS: CYANOCOBALAMIN 500 MCG TABLET PO SCH (09:10)
[2019-01-13] MEDS: PREGABALIN 100 MG CAPSULE PO SCH ×2 (09:10→17:06)
[2019-01-13] MEDS: ASCORBIC ACID 500 MG TABLET PO SCH (09:11)
[2019-01-13] MEDS: FUROSEMIDE 40 MG TABLET PO SCH ×2 (09:11→17:00)
[2019-01-13] MEDS: MEMANTINE HCL 5 MG TABLET PO SCH ×2 (09:11→17:06)
[2019-01-13] MEDS: OXYBUTYNIN CHLORIDE 5 MG TABLET PO SCH ×2 (09:11→17:06)
[2019-01-13] MEDS: CARVEDILOL 3.125 MG TABLET PO SCH ×2 (09:11→17:00)
[2019-01-13] MEDS: NYSTATIN TOP POWDER 15 GM BOTTLE TP SCH ×2 (09:12→21:09)
[2019-01-13] MEDS: APIXABAN 5 MG TABLET PO SCH ×2 (09:13→17:06)
[2019-01-13] MEDS ORDERED: FURO40TA5 PO (11:10)
[2019-01-13] MEDS ORDERED: APIX5TAB PO (11:10)
[2019-01-13] MEDS ORDERED: NYST15PO4 TP (11:10)
[2019-01-13 16:00] VITALS: BP 93/63
--- NOTE | 2019-01-13 16:30 | NUR ---
MS/RN PATIENT REFUSED DAILY LABS FOR TODAY, OFFERED X 3 WITH RISKS AND BENEFITS EXPLAINED CONTINUE TO REFUSE PER PATIENT, HE IS LEAVING TOMORROW THEREFORE HE DOESN'T NEED LAB WORK DONE. NOTIFIED.
[2019-01-13] MEDS: ATORVASTATIN 10 MG TABLET PO SCH (17:07)
--- NOTE | 2019-01-13 18:14 | NUR ---
MS/RN CLOSING NOTE PATIENT IN BED IN STABLE CONDITION. A/O X 4. NO SIGNS OF ACUTE DISTRESS. NO COMPLAIN OF PAIN OR DISCOMFORT. ON OXYGEN VIA NC AT 3LPM, TOLERATING WELL. ALL NEEDS ATTENDED TO. CALL LIGHT WITHIN REACH. WILL ENDORSE TO NEXT SHIFT FOR CONTINUITY OF CARE.
--- NOTE | 2019-01-13 19:33 | NUR ---
RN OPENING NOTES RECEIVED PATIENT FROM [facility]. PATIENT IS AWAKE, RESTING COMFORTABLY IN BED. PATIENT IS A/O X 4. NO SIGNS OF RESPIRATORY DISTRESS. PATIENT DENIES SHORTNESS OF BREATH. PATIENT IS ON OXYGEN 3LPM VIA NC, TOLERATING WELL. SAFETY PRECAUTIONS IMPLEMENTED. CALL LIGHT WITHIN REACH. WILL CONTINUE TO MONITOR PATIENT THROUGHOUT THE SHIFT.
[2019-01-13 20:00] VITALS: BP 92/66
[2019-01-13 20:36] VITALS: BP 96/66
[2019-01-13] MEDS: TRAZODONE 50 MG TABLET PO SCH (21:10)
[2019-01-14] MEDS: ALBUTEROL FS 2.5 MG/0.5 ML VIAL.NEB NEB SCH ×3 (01:30→12:44)
[2019-01-14] MEDS: IPRATROPIUM NEB FS 0.5 MG/2.5 ML AMPUL.NEB NEB SCH ×3 (01:30→12:44)
--- NOTE | 2019-01-14 06:23 | NUR ---
RN CLOSING NOTES PATIENT IS RESTING COMFORTABLY IN BED. NO SIGNS OF RESPIRATORY DISTRESS. NO SIGNS OF SHORTNESS OF BREATH NOTED. OXYGEN AT 3LPM VIA NC AND TOLERATING WELL. SAFETY PRECAUTIONS IMPLEMENTED. IV SITE IS PATENT AND INTACT. PATIENT TURNED Q2HRS, OFFLOADED EXTREMITIES. ALL NEEDS WERE MET. ALL SCHEDULED MEDICATIONS GIVEN. CALL LIGHT WITHIN REACH. WILL CONTINUE TO MONITOR PATIENT AND ENDORSE TO AM RN.
--- NOTE | 2019-01-14 07:30 | NUR ---
MS RN Opening Notes Patient currently awake, semi-Fink's position. Breathing treatment in progress per RT. Alert and oriented x4. No acute distress. Respirations even and unlabored on 2.0 lpm oxygen via nasal cannula. No complaints of pain or discomfort at this time. Peripheral IV access to the right hand 22 gauge, intact, patent and saline. Fall and safety precautions in place: bed in lowest and locked position, bed alarm on, call light and personal possessions within reach. Room clear of clutter and well lit. Reminded patient of safety measures and use of call light, verbalized understanding. Will continue to monitor and intervene as needed.
[2019-01-14 08:35] VITALS: BP 117/63
[2019-01-14] MEDS: PREGABALIN 100 MG CAPSULE PO SCH (09:04)
[2019-01-14] MEDS: ropiniROLE 0.5 MG TABLET PO SCH (09:04)
[2019-01-14] MEDS: CYANOCOBALAMIN 500 MCG TABLET PO SCH (09:04)
[2019-01-14] MEDS: ASCORBIC ACID 500 MG TABLET PO SCH (09:04)
[2019-01-14] MEDS: OXYBUTYNIN CHLORIDE 5 MG TABLET PO SCH (09:05)
[2019-01-14] MEDS: MEMANTINE HCL 5 MG TABLET PO SCH (09:05)
[2019-01-14 09:07] VITALS: BP 118/64
[2019-01-14] MEDS: FUROSEMIDE 40 MG TABLET PO SCH (09:07)
[2019-01-14] MEDS: CARVEDILOL 3.125 MG TABLET PO SCH (09:07)
[2019-01-14] MEDS: APIXABAN 5 MG TABLET PO SCH (09:08)
[2019-01-14] MEDS: NYSTATIN TOP POWDER 15 GM BOTTLE TP SCH (09:09)
--- NOTE | 2019-01-14 15:30 | NUR ---
MS forest pathology associate professor Note Patient currently awake, semi-Fink's position. Alert and oriented x4. No acute distress. Respirations even and unlabored on 3 Lpm oxygen via nasal cannula. No complaints of pain or discomfort at this time. Peripheral IV access to the right hand 22 gauge removed with catheter tip intact. No redness, swelling or bleeding of the site noted. Brace/Immobilizer noted to left leg. Dressing to left upper thigh surgical site, clean, dry and intact (patient did not allow photo of site to be taken). Skin assessment completed prior to discharge, photos taken and placed in chart. Patient unable to fully turn for photo of sacrum, took photo of site as tolerated, no open wound noted on area. ID bands removed. Patient educated about Exitcare and discharge instructions, all questions answered at this time. Verbalized understanding and acknowledges via signature on discharge form. Patient left with all belongings and valuables, patient signed belongings form per protocol. Discharge packet given to EMS for transport to facility. Patient clean and dry. Patient was escorted by EMS to the [facility] to leave via ambulance. Spouse, Fifi, present and aware of discharge. Report given to Randy, admitting RN of [facility] facility at .
== END 2019-01-14 15:10 | DRG 280 ==
LOC: ER 19:22 → TELE 22:17 → MED 01-09 08:37
PROVIDERS: ADMIT Nurse Practitioner Acute Care; ATTEND Nurse Practitioner Acute Care
DX: I13.0 Hypertensive heart and chronic kidney disease with heart failure and stage 1 through stage 4 chronic kidney disease, or unspecified chronic kidney disease (principal); I26.99 Other pulmonary embolism without acute cor pulmonale; I21.A1 Myocardial infarction type 2; I50.33 Acute on chronic diastolic (congestive) heart failure; N17.0 Acute kidney failure with tubular necrosis; I82.220 Acute embolism and thrombosis of inferior vena cava; J98.11 Atelectasis; I25.10 Atherosclerotic heart disease of native coronary artery without angina pectoris; I27.20 Pulmonary hypertension, unspecified; I25.2 Old myocardial infarction; D69.6 Thrombocytopenia, unspecified; E78.5 Hyperlipidemia, unspecified; E88.09 Other disorders of plasma-protein metabolism, not elsewhere classified; I48.0 Paroxysmal atrial fibrillation; N18.3 Chronic kidney disease, stage 3 (moderate); E66.9 Obesity, unspecified; Z68.36 Body mass index [BMI] 36.0-36.9, adult; Z86.718 Personal history of other venous thrombosis and embolism; D53.9 Nutritional anemia, unspecified; E11.22 Type 2 diabetes mellitus with diabetic chronic kidney disease; Z95.1 Presence of aortocoronary bypass graft; G25.81 Restless legs syndrome; L98.8 Other specified disorders of the skin and subcutaneous tissue; I71.4 Abdominal aortic aneurysm, without rupture; Z86.711 Personal history of pulmonary embolism; Z87.891 Personal history of nicotine dependence; Z95.828 Presence of other vascular implants and grafts; Z96.649 Presence of unspecified artificial hip joint; Z79.01 Long term (current) use of anticoagulants
CPT/HCPCS: 36415; 71045-TC; 74018; 80048-TC; 80053-TC; 80076-TC; 83735-TC; 83880; 84100-TC; 84484-TC; 85025-TC; 85610-TC; 85730-TC; 87081-TC; 93970-TC; 94760-TC; 94799-TC; 97110-TC; 97530-TC; A4216; A6402; A6403; G0378; J1650; J1940; J3490; J7050; J7060; Q9967

== ENCOUNTER 2019-02-26 18:51 | Inpatient (IN) | payer MEDICARE, BC ==
[~2019-02-26] VITALS: Ht 182.9 cm; Wt 112.5 kg
[2019-02-26] MEDS: PIPERACILLIN /TAZOBACTAM 3.375 G in IV D5W 50 ML IV ONE ×2 (10:13→22:13)
[~2019-02-26 18:51] MED LIST changes: +APIX5TAB PO; +BISA10SU8 RC; +BISA5TAB10 PO; +DOCU-141 PO; +ERGO500014 PO; -Ergocalciferol (Vitamin D 2) PO; +IPRA3AMP23 IH; +MAGN400O6 PO; +NA P133E RC; +NYST15PO4 TP
--- NOTE | 2019-02-26 19:23 | NUR ---
PT BIBWIFE C/O WOUND ON L LOWER EXTREMITY X1 WEEK. +YELLOW DISCHARGE, +SURROUNDING REDDNESS, -FEVER. L LEG BRACE NOTED. UNABLE TO BEAR WEIGHT ON L LEG. PT AOX4. NAD NOTED. RESP EVEN AND UNLABORED. PT ON MONITOR IN BED 10 WITH AT BEDSIDE. WILL CONTINUE TO MONITOR.
--- NOTE | 2019-02-26 19:50 | NUR ---
WENT IN TO SEE PT. AT BED SIDE.
[2019-02-26] MEDS ORDERED: IV NS 0.9% 1,000 ML BAG IV ONE ×2 (20:30→23:00)
[2019-02-26] MEDS ORDERED: SILVER SULFADIAZINE CREAM 25 GM TUBE TP ONE (20:30)
[2019-02-26] MEDS ORDERED: PIPERACILLIN /TAZOBACTAM 3.375 G VIAL IV ONE (21:01)
[2019-02-26] MEDS ORDERED: SILVER SULFADIAZINE CREAM 25 GM TUBE ONE (21:02)
[2019-02-26] MEDS ORDERED: ONDANSETRON HCL/PF 4 MG/2 ML VIAL IV ONE (21:30)
[2019-02-26] MEDS ORDERED: MORPHINE SULFATE INJ 10 MG/ML DISP.SYRIN IV ONE (21:30)
[2019-02-26] MEDS ORDERED: MORPHINE SULFATE INJ 4 MG/ML DISP.SYRIN ONE (22:02)
[2019-02-26] MEDS ORDERED: ONDANSETRON HCL/PF 4 MG/2 ML VIAL ONE (22:02)
--- NOTE | 2019-02-26 22:10 | NUR ---
ROLLER MILL OPERATOR IS AT BEDSIDE
[2019-02-26 22:21] LABS: RED BLOOD CELL COUNT(AUTO) 3.32 MIL/uL (4.5-6.0)
[2019-02-26 22:24] LABS: BASOPHILS # (AUTO) 0.1 /CMM (0.0-0.2); BASOPHILS % (AUTO) 0.6 % (0.0-2.0); EOSINOPHILS % (AUTO) 0.4 % (0.0-6.0); HEMATOCRIT 33 % (39-51); HEMOGLOBIN 10.3 g/dL (13.5-17.5); LYMPHOCYTES # (AUTO) 0.6 /CMM (0.8-4.8); MEAN CORPUSCULAR HGB CONC 32 g/dl (31.0-36.0); MEAN CORPUSCULAR VOLUME 98 fL (80-96); MONOCYTES # (AUTO) 1.5 /CMM (0.1-1.30); MONOCYTES % (AUTO) 9.9 % (2.0-12.0); NEUTROPHILS # (AUTO) 13.3 /CMM (1.8-8.9); NEUTROPHILS % (AUTO) 85.1 % (43.0-81.0); PLATELET COUNT (AUTO) 199 /CMM (150-450); WHITE BLOOD COUNT (AUTO) 15.6 K/uL (4.3-11.0)
[2019-02-26 22:35] LABS: ALANINE AMINOTRANSFERASE 12 U/L (12-78); ALBUMIN 3.3 g/dL (3.4-5.0); ALKALINE PHOSPHATASE 98 U/L (46-116); ASPARTATE AMINOTRANSFERASE 13 U/L (15-37); BILIRUBIN,DIRECT 0.3 mg/dL (0.0-0.2); CALCIUM, SERUM 9.8 mg/dL (8.5-10.1); CARBON DIOXIDE 32 mmol/L (21-32); CHLORIDE 102 mmol/L (98-107); CREATININE 1.2 mg/dL (0.6-1.3); GLUCOSE 183 mg/dL (74-106); POTASSIUM 4.5 mmol/L (3.5-5.1); SODIUM SERUM 140 mmol/L (136-145); TOTAL PROTEIN, SERUM 7.2 g/dL (6.4-8.2); UREA NITROGEN, BLOOD 26 mg/dL (7-18)
--- NOTE | 2019-02-26 22:42 | NUR ---
LACTIC ACID 3.4. MD AWARE.
[2019-02-26] MEDS ORDERED: VANCOMYCIN 1 GM in IV D5W 250 ML IV ONE (23:00)
[2019-02-26] MEDS ORDERED: HYDROCODONE/APAP 10/325MG 1 EA TABLET PO ONE (23:00)
[2019-02-26] MEDS ORDERED: IV NS 0.9% 500 ML BAG IV ONE (23:00)
[2019-02-26] MEDS ORDERED: VANCOMYCIN 1 GM VIAL ONE (23:05)
[2019-02-26] MEDS ORDERED: HYDROCODONE/APAP 10/325MG 1 EA TABLET ONE (23:06)
--- NOTE | 2019-02-26 23:06 | NUR ---
RADIOLOGY AT BEDSIDE FOR XRAY
--- NOTE | 2019-02-26 23:26 | NUR ---
BED ASSIGNMENT 118-2
[2019-02-26] MEDS ORDERED: IV NS 0.9% 1,000 ML IV PRN (23:40)
[2019-02-27] MEDS ORDERED: MAG HYDROX/AL HYDROX/SIMETH 30 ML UDC PO PRN
[2019-02-27] MEDS ORDERED: ACETAMINOPHEN 325 MG TABLET PO PRN
[2019-02-27] MEDS ORDERED: ONDANSETRON HCL/PF 4 MG/2 ML VIAL IVP PRN
[2019-02-27] MEDS ORDERED: MAGNESIUM HYDROXIDE 30 ML UDC PO PRN
[2019-02-27] MEDS ORDERED: ZOLPIDEM TARTRATE 5 MG TABLET PO PRN
[2019-02-27] MEDS ORDERED: KETOROLAC TROMETHAMINE INJ 30 MG/ML VIAL IV PRN (00:30)
--- NOTE | 2019-02-27 00:30 | NUR ---
RN NOTES GAVE REPORT TO ALMA LUBIN FOR COLIN
[2019-02-27 01:25] VITALS: BP 123/76
[2019-02-27] MEDS ORDERED: VANCOMYCIN 1 GM in IV D5W 250 ML IV ONE (02:00)
[2019-02-27] MEDS ORDERED: VANCOMYCIN 1 GM VIAL ONE (03:49)
[2019-02-27 04:00] VITALS: BP 109/64
[2019-02-27] MEDS ORDERED: PIPERACILLIN /TAZOBACTAM 3.375 G in IV D5W 50 ML IV ONE (05:00)
[2019-02-27] MEDS ORDERED: PIPERACILLIN /TAZOBACTAM 3.375 G VIAL IV ONE (05:18)
--- NOTE | 2019-02-27 05:41 | NUR ---
RN NOTES ADMITTED A 78 YEAR OLD MALE FROM ER VIA STRETCHER ACCOMPANIED BY 2 STAFFS IN NO APPARENT DISTRESS. BREATHING EVEN AND UNLABORED. ON 2 LITERS O2 TOLERATING WELL. ALERT AND ORIENTED. VERBALLY ABLE TO COMMUNICATE NEEDS. NO COMPLAINT OF PAIN OR DISCOMFORT. VITAL SIGNS CHECKED, WITHIN NORMAL LEVEL. SKIN ASSESSMENT DONE, PICTURES TAKEN. KEPT CLEAN AND DRY. WILL ENDORSE TO NEXT SHIFT FOR CONTINUITY OF CARE.
[2019-02-27 07:16] LABS: BASOPHILS % (AUTO) 0.3 % (0.0-2.0); EOSINOPHILS % (AUTO) 0.1 % (0.0-6.0); HEMATOCRIT 27 % (39-51); HEMOGLOBIN 8.6 g/dL (13.5-17.5); LYMPHOCYTES # (AUTO) 0.6 /CMM (0.8-4.8); LYMPHOCYTES % (AUTO) 4.7 % (20.0-44.0); MEAN CORPUSCULAR HGB CONC 32 g/dl (31.0-36.0); MEAN CORPUSCULAR VOLUME 97 fL (80-96); MONOCYTES # (AUTO) 1.4 /CMM (0.1-1.30); MONOCYTES % (AUTO) 10.2 % (2.0-12.0); NEUTROPHILS # (AUTO) 11.5 /CMM (1.8-8.9); NEUTROPHILS % (AUTO) 84.7 % (43.0-81.0); PLATELET COUNT (AUTO) 143 /CMM (150-450); RED BLOOD CELL COUNT(AUTO) 2.83 MIL/uL (4.5-6.0); WHITE BLOOD COUNT (AUTO) 13.6 K/uL (4.3-11.0)
--- NOTE | 2019-02-27 07:25 | NUR ---
RN OPENING NOTES RECEIVED REPORT FROM OCCUPATIONAL HEALTH AND SAFETY ADVISER RN. PT IS LAYING IN BED ASLEEP. PT IS ON 2L O2 VIA NC. PT IS SR ON MONITOR. PT IS A&OX3 WITH DIFFICULTY RECALLING. PT HAS A URINAL BEDSIDE. PT NEEDS ASSISTANCE TRANSFERRING FROM BED TO WHEELCHAIR. BED IS IN LOWEST POSITION WITH CALL LIGHT IN REACH WILL CONTINUE TO MONITOR.
[2019-02-27 07:47] LABS: ALANINE AMINOTRANSFERASE 13 U/L (12-78); ALBUMIN 2.6 g/dL (3.4-5.0); ALKALINE PHOSPHATASE 74 U/L (46-116); ASPARTATE AMINOTRANSFERASE 10 U/L (15-37); BILIRUBIN,TOTAL 0.9 mg/dL (0.2-1.0); CARBON DIOXIDE 30 mmol/L (21-32); CHLORIDE 104 mmol/L (98-107); CREATININE 1.3 mg/dL (0.6-1.3); GLUCOSE 168 mg/dL (74-106); PHOSPHORUS 3.2 mg/dL (2.5-4.9); SODIUM SERUM 141 mmol/L (136-145); TOTAL PROTEIN, SERUM 5.9 g/dL (6.4-8.2); UREA NITROGEN, BLOOD 23 mg/dL (7-18)
[2019-02-27 08:00] VITALS: BP 129/86
[2019-02-27] MEDS: APIXABAN 5 MG TABLET PO SCH ×2 (09:00→17:02)
[2019-02-27 09:05] LABS: PREALBUMIN 12.8 MG/DL (18.0-35.7); THYROID STIMULATING HORMONE 0.718 uIU/mL (0.358-3.74)
[2019-02-27] MEDS: ropiniROLE 0.5 MG TABLET PO SCH (09:05)
[2019-02-27] MEDS: FUROSEMIDE 40 MG TABLET PO SCH ×2 (09:05→17:02)
[2019-02-27] MEDS: DOCUSATE SODIUM 100 MG CAPSULE PO SCH ×2 (09:05→17:01)
[2019-02-27] MEDS: PREGABALIN 100 MG CAPSULE PO SCH ×2 (09:06→17:01)
[2019-02-27] MEDS: ASCORBIC ACID 500 MG TABLET PO SCH (09:06)
[2019-02-27] MEDS: MEMANTINE HCL 5 MG TABLET PO SCH ×2 (09:06→17:02)
[2019-02-27] MEDS: LOSARTAN POTASSIUM 50 MG TABLET PO SCH (09:06)
[2019-02-27] MEDS: CARVEDILOL 3.125 MG TABLET PO SCH ×2 (09:07→17:02)
[2019-02-27] MEDS ORDERED: FEE PK DOSING 1 MIN EA MC ONE (09:21)
--- NOTE | 2019-02-27 10:18 | NUR ---
WOUND CARE CONSULT WOUND CARE RECEIVED CONSULT FOR WOUNDS. WOUND CARE WILL DEFER CONSULT AND TREATMENT PLANS TO PLASTIC SURGICAL TEAM AND VASCULAR SURGEON WHO ARE ALL CURRENTLY FOLLOWING THIS PATIENT. PATIENT WITH EMA AT 14, ALL PRESSURE ULCER PREVENTION MEASURES ARE NOTED TO BE IN PLACE AT THIS TIME. WILL SEE PRN.
[2019-02-27 12:00] VITALS: BP 96/55
[2019-02-27] MEDS ORDERED: PIPERACILLIN /TAZOBACTAM 4.5 G in IV D5W 50 ML IV SCH (12:00)
[2019-02-27] MEDS: PIPERACILLIN /TAZOBACTAM 3.375 G in IV D5W 50 ML IV SCH ×2 (12:40→18:20)
[2019-02-27] MEDS ORDERED: CADEXOMER IODINE 40 GM TUBE TP STA (13:23)
[2019-02-27] MEDS: HYDROGEL DRESSING 90 GM TUBE TP SCH ×2 (14:26→21:08)
[2019-02-27] MEDS: CLOTRIMAZOLE/BETAMETASONE DIPROPIONATE 15 GM TUBE TP SCH ×2 (14:26→17:03)
[2019-02-27 16:00] VITALS: BP 123/71
[2019-02-27] MEDS: HYDROCODONE/APAP 5/325MG 1 EACH TABLET PO PRN (17:13)
[2019-02-27] MEDS: OXYBUTYNIN CHLORIDE ER 5 MG TAB PO SCH ×2 (18:00→18:20)
[2019-02-27] MEDS: ATORVASTATIN 10 MG TABLET PO SCH (18:20)
--- NOTE | 2019-02-27 19:30 | NUR ---
LAND SURVEYING SURVEY WORKER NOTE: RECEIVED PT ON BED ALERT AND ORIENTED X3. ABLE TO MAKE NEEDS KNOWN. NO APPARENT DISTRESS NOTED. DENIES PAIN AND DISCOMFORT AT THIS TIME. ON 2LPM NASAL CANNULA, BREATHING EVEN AND UNLABORED WITH NORMAL RESPIRATIONS. ON TELE MONITOR CONTROLLED AFIB HR 89BPM. IV ON LEFT HAND #20 INTACT AND PATENT, IVF INFUSING WELL. CALL LIGHT PLACED WITHIN REACH. KEPT CLEAN, DRY AND COMFORTABLE. SAFETY AND FALL PRECAUTIONS OBSERVED AND MAINTAINED. WILL CONTINUE TO MONITOR PT.
--- NOTE | 2019-02-27 19:40 | NUR ---
RN CLOSING NOTES GAVE REPORT TO COMPENSATION AGENT RN. PT IS LAYING IN BED ASLEEP. PT IS ON 2L O2 VIA NC. PT IS SR ON MONITOR. PT IS A&OX3 WITH DIFFICULTY RECALLING. PT HAS A URINAL BEDSIDE.PT DENIES SOB OR PAIN AT PRESENT MOMENT. BED IS IN LOWEST POSITION WITH CALL LIGHT IN REACH WILL ENDORSE CONTINUITY OF CARE TO COMPENSATION AGENT RN.
[2019-02-27 20:00] VITALS: BP 105/56
[2019-02-27] MEDS: CEFEPIME 1 GM in IV D5W 50 ML IV SCH (20:12)
[2019-02-27] MEDS: TRAZODONE 50 MG TABLET PO SCH ×2 (21:10→21:14)
[2019-02-28] VITALS: BP 130/84
[2019-02-28] MEDS: VANCOMYCIN 1.25 GM in IV D5W 500 ML IV SCH ×2 (01:25→21:26)
[2019-02-28 04:00] VITALS: BP 119/77
--- NOTE | 2019-02-28 06:40 | NUR ---
HAND PLUG SHAPER NOTE: NO CHANGES NOTED THROUGHOUT THE SHIFT. NO APPARENT DISTRESS NOTED. ON 2LPM NASAL CANNULA, NO SOB NOTED. IV ON LEFT HAND #20 INTACT AND PATENT, FLUSHING WELL. ON TELE MONITOR AFIB CONTROLLED HR 106BPM. KEPT CLEAN, DRY AND COMFORTABLE. SAFETY AND FALL PRECAUTIONS OBSERVED AND MAINTAINED. WILL ENDORSE TO DAY SHIFT RN FOR CONTINUITY OF CARE
--- NOTE | 2019-02-28 07:15 | NUR ---
RN OPENING NOTES RECEIVED REPORT FROM HOOK PULLER RN. PT IS LAYING IN BED ASLEEP. PT IS ON 2L O2 VIA NC. PT IS CONTROLLED A-FIB ON MONITOR. PT IS A&OX3 WITH DIFFICULTY RECALLING. PT HAS A URINAL BEDSIDE. PT NEEDS ASSISTANCE TRANSFERRING FROM BED TO WHEELCHAIR. BED IS IN LOWEST POSITION WITH CALL LIGHT IN REACH WILL CONTINUE TO MONITOR.
[2019-02-28 08:00] VITALS: BP 117/66
[2019-02-28 08:31] LABS: CALCIUM, SERUM 9.2 mg/dL (8.5-10.1); CARBON DIOXIDE 31 mmol/L (21-32); CHLORIDE 104 mmol/L (98-107); CREATININE 1.2 mg/dL (0.6-1.3); GLUCOSE 144 mg/dL (74-106); POTASSIUM 3.6 mmol/L (3.5-5.1); SODIUM SERUM 140 mmol/L (136-145); UREA NITROGEN, BLOOD 22 mg/dL (7-18)
[2019-02-28 08:32] LABS: BASOPHILS # (AUTO) 0.1 /CMM (0.0-0.2); BASOPHILS % (AUTO) 0.4 % (0.0-2.0); EOSINOPHILS % (AUTO) 0.4 % (0.0-6.0); HEMATOCRIT 29 % (39-51); LYMPHOCYTES # (AUTO) 0.6 /CMM (0.8-4.8); LYMPHOCYTES % (AUTO) 3.9 % (20.0-44.0); MEAN CORPUSCULAR HGB CONC 32 g/dl (31.0-36.0); MEAN CORPUSCULAR VOLUME 96 fL (80-96); MONOCYTES # (AUTO) 1.4 /CMM (0.1-1.30); MONOCYTES % (AUTO) 8.9 % (2.0-12.0); NEUTROPHILS # (AUTO) 14.1 /CMM (1.8-8.9); NEUTROPHILS % (AUTO) 86.4 % (43.0-81.0); PLATELET COUNT (AUTO) 136 /CMM (150-450); RED BLOOD CELL COUNT(AUTO) 2.96 MIL/uL (4.5-6.0); WHITE BLOOD COUNT (AUTO) 16.3 K/uL (4.3-11.0)
[2019-02-28] MEDS: MEMANTINE HCL 5 MG TABLET PO SCH ×2 (08:36→17:26)
[2019-02-28] MEDS: PREGABALIN 100 MG CAPSULE PO SCH ×2 (08:36→17:26)
[2019-02-28] MEDS: ropiniROLE 0.5 MG TABLET PO SCH (08:36)
[2019-02-28] MEDS: CEFEPIME 1 GM in IV D5W 50 ML IV SCH ×2 (08:36→21:09)
[2019-02-28] MEDS: ASCORBIC ACID 500 MG TABLET PO SCH (08:36)
[2019-02-28] MEDS: FUROSEMIDE 40 MG TABLET PO SCH ×2 (08:37→17:26)
[2019-02-28] MEDS: LOSARTAN POTASSIUM 50 MG TABLET PO SCH (08:37)
[2019-02-28] MEDS: DOCUSATE SODIUM 100 MG CAPSULE PO SCH ×2 (08:37→17:26)
[2019-02-28] MEDS: CARVEDILOL 3.125 MG TABLET PO SCH ×2 (08:38→17:27)
[2019-02-28] MEDS: HYDROGEL DRESSING 90 GM TUBE TP SCH ×2 (08:42→21:09)
[2019-02-28] MEDS: CLOTRIMAZOLE/BETAMETASONE DIPROPIONATE 15 GM TUBE TP SCH ×2 (08:42→17:28)
[2019-02-28] MEDS: APIXABAN 5 MG TABLET PO SCH ×2 (08:42→17:26)
[2019-02-28] MEDS ORDERED: BISACODYL (5 MG) 5 MG TABLET.DR PO ONE (15:00)
[2019-02-28 16:00] VITALS: BP_SYST 111; BP_SYST 97; BP_DIAS 61; BP_DIAS 67
[2019-02-28] MEDS: ATORVASTATIN 10 MG TABLET PO SCH (17:27)
[2019-02-28] MEDS: OXYBUTYNIN CHLORIDE ER 5 MG TAB PO SCH (17:28)
--- NOTE | 2019-02-28 19:30 | NUR ---
RN CLOSING NOTES GAVE REPORT TO INDUSTRIAL RELATIONS COMMISSIONER RN. PT IS LAYING IN BED AWAKE WATCHING TELEVISION. PT IS ON 2L O2 VIA NC. PT IS SR ON MONITOR. PT IS A&OX3 WITH DIFFICULTY RECALLING. PT HAS A URINAL BEDSIDE.PT HAD A BOWEL MOVEMENT. PT DENIES SOB OR PAIN AT PRESENT MOMENT. BED IS IN LOWEST POSITION WITH CALL LIGHT IN REACH WILL ENDORSE CONTINUITY OF CARE TO INDUSTRIAL RELATIONS COMMISSIONER RN.
[2019-02-28 20:00] VITALS: BP 118/58
--- NOTE | 2019-02-28 20:00 | NUR ---
RN OPENING NOTES RECEIVED REPORT FROM ANITRA MARQUEZ. PATIENT A/A/O X4, ABLE TO MAKE NEEDS KNOWN. BREATHING EVEN & UNLABORED, TOLERATING ROOM O2 @ 2LPM VIA NC. DENIES ANY SOB OR DIFFICULTY BREATHING. RADIAL PULSES PRESENT. LEFT HAND IV #20 INTACT & PATENT W/ DRESSING CDI, SALINE LOCKED. DENIES ANY PAIN OR DISCOMFORT @ THIS TIME. LEFT LEG BRACE APPLIED W/ BOTH LEGS ELEVATED. SOME REDNESS & SWELLING STILL NOTED ON RIGHT FOREARM & WARM TO TOUCH, ELEVATED ON PILLOW. SAFETY MEASURES IN PLACE W/ SIDE RAILS UP & BED ALARM ON. CALL LIGHT PLACED WITHIN REACH & INSTRUCTED TO CALL FOR ASSISTANCE. WILL CONTINUE TO MONITOR.
[2019-02-28] MEDS: MUPIROCIN OINT 2% 22 GM TUBE SCH (21:09)
[2019-02-28] MEDS: TRAZODONE 50 MG TABLET PO SCH (21:09)
[2019-03-01 04:00] VITALS: BP 129/66
[2019-03-01 06:32] LABS: BASOPHILS % (AUTO) 0.2 % (0.0-2.0); EOSINOPHILS % (AUTO) 0.9 % (0.0-6.0); HEMATOCRIT 27 % (39-51); HEMOGLOBIN 8.5 g/dL (13.5-17.5); LYMPHOCYTES # (AUTO) 0.8 /CMM (0.8-4.8); LYMPHOCYTES % (AUTO) 5.6 % (20.0-44.0); MEAN CORPUSCULAR HGB CONC 32 g/dl (31.0-36.0); MEAN CORPUSCULAR VOLUME 95 fL (80-96); MONOCYTES # (AUTO) 1.1 /CMM (0.1-1.30); MONOCYTES % (AUTO) 8.2 % (2.0-12.0); NEUTROPHILS # (AUTO) 11.8 /CMM (1.8-8.9); NEUTROPHILS % (AUTO) 85.1 % (43.0-81.0); PLATELET COUNT (AUTO) 133 /CMM (150-450); RED BLOOD CELL COUNT(AUTO) 2.83 MIL/uL (4.5-6.0); WHITE BLOOD COUNT (AUTO) 13.8 K/uL (4.3-11.0)
[2019-03-01 06:47] LABS: CALCIUM, SERUM 8.7 mg/dL (8.5-10.1); CARBON DIOXIDE 31 mmol/L (21-32); CHLORIDE 101 mmol/L (98-107); CREATININE 1.2 mg/dL (0.6-1.3); GLUCOSE 154 mg/dL (74-106); POTASSIUM 3.3 mmol/L (3.5-5.1); SODIUM SERUM 139 mmol/L (136-145); UREA NITROGEN, BLOOD 24 mg/dL (7-18)
[2019-03-01 08:00] VITALS: BP_SYST 127; BP_SYST 129; BP_DIAS 66; BP_DIAS 72
[2019-03-01] MEDS: HYDROCODONE/APAP 5/325MG 1 EACH TABLET PO PRN ×2 (08:05→14:51)
[2019-03-01] MEDS: FUROSEMIDE 40 MG TABLET PO SCH ×2 (08:06→16:49)
[2019-03-01] MEDS: PREGABALIN 100 MG CAPSULE PO SCH ×2 (08:06→16:48)
[2019-03-01] MEDS: ASCORBIC ACID 500 MG TABLET PO SCH (08:06)
[2019-03-01] MEDS: ropiniROLE 0.5 MG TABLET PO SCH (08:13)
[2019-03-01] MEDS: MEMANTINE HCL 5 MG TABLET PO SCH ×2 (08:13→16:50)
[2019-03-01] MEDS: LOSARTAN POTASSIUM 50 MG TABLET PO SCH (08:14)
[2019-03-01] MEDS: DOCUSATE SODIUM 100 MG CAPSULE PO SCH ×2 (08:14→16:49)
[2019-03-01] MEDS: CARVEDILOL 3.125 MG TABLET PO SCH ×2 (08:14→16:50)
[2019-03-01] MEDS: MUPIROCIN OINT 2% 22 GM TUBE SCH ×2 (08:14→21:43)
[2019-03-01] MEDS: CEFEPIME 1 GM in IV D5W 50 ML IV SCH ×2 (08:15→20:32)
[2019-03-01] MEDS: CLOTRIMAZOLE/BETAMETASONE DIPROPIONATE 15 GM TUBE TP SCH ×2 (08:17→16:52)
[2019-03-01] MEDS: HYDROGEL DRESSING 90 GM TUBE TP SCH ×2 (08:17→21:43)
[2019-03-01] MEDS: APIXABAN 5 MG TABLET PO SCH ×2 (09:16→16:51)
[2019-03-01] MEDS ORDERED: POTASSIUM CHLORIDE 20 MEQ TAB.PRT.SR PO SCH (11:00)
[2019-03-01] MEDS: VANCOMYCIN 1.25 GM in IV D5W 500 ML IV SCH (14:37)
[2019-03-01 16:00] VITALS: BP 127/78
[2019-03-01] MEDS: LACTOBACILLUS RHAMNOSUS GG 1 EACH CAP.SPRINK PO SCH (16:49)
--- NOTE | 2019-03-01 17:57 | NUR ---
PATIENT WITH DIFFICULT PERIPHERAL ,ICU TIED 3X UNSUCCESFUL,NOTIFIED MD AND ORDERED MIDLINE.
--- NOTE | 2019-03-01 18:23 | NUR ---
Pt alert and oriented,urinating several time,condom cath tried ,unable to stay in place,pt change turned and repositionned several time.Pt refused for RN to continue trying to insert peripheral IV, notified and request midline because pt need to continue IV antibiotic.before discharge because of infectious wounds.
[2019-03-01] MEDS: OXYBUTYNIN CHLORIDE ER 5 MG TAB PO SCH (18:57)
[2019-03-01] MEDS: ATORVASTATIN 10 MG TABLET PO SCH (18:57)
[2019-03-01 20:00] VITALS: BP 106/62
[2019-03-01] MEDS: TRAZODONE 50 MG TABLET PO SCH (21:43)
[2019-03-02] VITALS: BP 100/64
--- NOTE | 2019-03-02 07:15 | NUR ---
MS RN OPENING NOTES RECEIVED PT LYING ON BED.ALERT/ORIENTED X4.ON 2L O2 VIA NC CONTINUOUSLY,NO SOB AND ACUTE DISTRESS NOTED.IV LINE IS ON LEFT HAND G20,SITE IS CLEAN,DRY AND INTACT.NO INFILTRATION NOTED.NO PAIN NOTED FOR NOW.BED IS IN LOW POSITION AND LOCKED,CALL LIGHT IS WITHIN REACH.WILL CONTINUE TO MONITOR THE PT CLOSELY.
[2019-03-02 08:00] VITALS: BP 110/67
[2019-03-02] MEDS: PREGABALIN 100 MG CAPSULE PO SCH ×2 (08:38→16:26)
[2019-03-02] MEDS: FUROSEMIDE 40 MG TABLET PO SCH ×2 (08:38→16:26)
[2019-03-02] MEDS: ropiniROLE 0.5 MG TABLET PO SCH (08:38)
[2019-03-02] MEDS: MEMANTINE HCL 5 MG TABLET PO SCH ×2 (08:38→16:26)
[2019-03-02] MEDS: LACTOBACILLUS RHAMNOSUS GG 1 EACH CAP.SPRINK PO SCH ×2 (08:38→16:26)
[2019-03-02] MEDS: ASCORBIC ACID 500 MG TABLET PO SCH (08:38)
[2019-03-02] MEDS: DOCUSATE SODIUM 100 MG CAPSULE PO SCH ×2 (08:38→16:26)
[2019-03-02] MEDS: LOSARTAN POTASSIUM 50 MG TABLET PO SCH (08:39)
[2019-03-02] MEDS: CARVEDILOL 3.125 MG TABLET PO SCH ×2 (08:39→16:26)
[2019-03-02] MEDS: MUPIROCIN OINT 2% 22 GM TUBE SCH ×2 (08:46→22:08)
[2019-03-02] MEDS: APIXABAN 5 MG TABLET PO SCH ×2 (08:46→16:28)
[2019-03-02] MEDS: VANCOMYCIN 1.25 GM in IV D5W 500 ML IV SCH (09:40)
--- NOTE | 2019-03-02 10:10 | NUR ---
WOUND CARE CONSULT: PT SEEN FOR RT AND LEFT ABDOMEN/GROIN INCISIONS, PRESENT ON ADMISSION. ORDERS CLARIFIED PER DR CASTILLO'S ORDERS WITH NURSING STAFF. WILL SEE PRN. DEFER TO PLASTIC SURGERY TEAM FOR OTHER WOUND TREATMENT PLAN AND TO DR CASTILLO FOR SURGICAL SITES TO ABDOMEN/GROIN AREAS. WILL SEE PRN. Addendum: 03/02/19 at 1012 by MICHELLE HOBSON WNDNU Amended: Links added.
--- NOTE | 2019-03-02 11:30 | NUR ---
MS RN NOTES PER PT REQUEST VILMA DREW ORDERED ALBUTEROL 1.25MG Q6HR PRN NEB FOR SOB.NEW ORDERS NOTED AND CARRIED OUT.
[2019-03-02] MEDS: CEFEPIME 1 GM in IV D5W 50 ML IV SCH (11:37)
[2019-03-02] MEDS: HYDROGEL DRESSING 90 GM TUBE TP SCH ×2 (11:37→22:08)
[2019-03-02] MEDS: CLOTRIMAZOLE/BETAMETASONE DIPROPIONATE 15 GM TUBE TP SCH ×2 (11:38→16:27)
[2019-03-02] MEDS: ALBUTEROL HALF STRENGTH 1.25 MG/3 ML VIAL.NEB NEB SCH ×3 (12:26→19:56)
[2019-03-02] MEDS: PROSOURCE / PROSTAT (PYXIS) 30 ML UDC GT SCH ×2 (15:02→17:00)
[2019-03-02 16:00] VITALS: BP 124/76
[2019-03-02] MEDS: OXYBUTYNIN CHLORIDE ER 5 MG TAB PO SCH (17:57)
[2019-03-02] MEDS: ATORVASTATIN 10 MG TABLET PO SCH (17:57)
--- NOTE | 2019-03-02 18:33 | NUR ---
MS RN CLOSING NOTES PT IS LYING ON BED .RESPIRATION IS EVEN AND NONLABORED.ALL DUE MEDS ARE GIVEN.NO SOB AND ACUTE DISTRESS NOTED.IV LINE IS INTACT.PT IS CLEAN AND DRY.WOUND DRESSING HAS DONE.ENDORSING TO SUPERVISOR PORCELAIN DEPARTMENT RN FOR COLIN.
--- NOTE | 2019-03-02 19:30 | NUR ---
MS RN NOTE PATIENT IN BED A/O X 4. PATIENT DENIES DISTRESS AT THIS TIME. BREATHING EVEN AND UNLABORED. PATIENT HAS 22 GAUGE IN L WRIST PATENT AND INTACT. PATIENT HOB SEMI FOWLERS. PATIENT DENIES CHEST PAIN AT THIS TIME. URINAL EMPITED 200 CC YELLOW AND CLEAR. RN WILL CONTINUE TO MONITOR SAFETY PRECAUTIONS IN PLACE. CALL LIGHT WITHIN HAND.
[2019-03-02 20:00] VITALS: BP 125/71
[2019-03-02] MEDS: TRAZODONE 50 MG TABLET PO SCH (22:40)
[2019-03-02] MEDS ORDERED: CEFEPIME 2 GM in IV D5W 100 ML IV SCH (23:00)
[2019-03-03] VITALS: BP 118/66
[2019-03-03] MEDS: ALBUTEROL HALF STRENGTH 1.25 MG/3 ML VIAL.NEB NEB SCH ×4 (01:11→19:26)
[2019-03-03] MEDS: VANCOMYCIN 1.25 GM in IV D5W 500 ML IV SCH ×2 (02:45→20:20)
--- NOTE | 2019-03-03 07:20 | NUR ---
MS RN OPENING NOTES RECEIVED PT LYING ON BED.ALERT/ORIENTED X4.ON 2L O2 VIA NC CONTINUOUSLY,NO SOB AND ACUTE DISTRESS NOTED.RESPIRATION IS EVEN AND NONLABORED.IV LINE IS ON LEFT HAND G20,SITE IS CLEAN,DRY AND INTACT.NO INFILTRATION NOTED.PT IS CLEAN AND DRY.NO PAIN NOTED FOR NOW.BED IS IN LOW POSITION AND LOCKED,CALL LIGHT IS WITHIN REACH.WILL CONTINUE TO MONITOR THE PT CLOSELY.
[2019-03-03 08:00] VITALS: BP 119/67
[2019-03-03] MEDS: DOCUSATE SODIUM 100 MG CAPSULE PO SCH ×2 (08:48→16:44)
[2019-03-03] MEDS: APIXABAN 5 MG TABLET PO SCH ×2 (08:48→16:44)
[2019-03-03] MEDS: ASCORBIC ACID 500 MG TABLET PO SCH (08:49)
[2019-03-03] MEDS: PREGABALIN 100 MG CAPSULE PO SCH ×2 (08:49→16:44)
[2019-03-03] MEDS: CARVEDILOL 3.125 MG TABLET PO SCH ×2 (08:49→16:44)
[2019-03-03] MEDS: LACTOBACILLUS RHAMNOSUS GG 1 EACH CAP.SPRINK PO SCH ×2 (08:49→16:44)
[2019-03-03] MEDS: LOSARTAN POTASSIUM 50 MG TABLET PO SCH (08:49)
[2019-03-03] MEDS: ropiniROLE 0.5 MG TABLET PO SCH (08:49)
[2019-03-03] MEDS: MEMANTINE HCL 5 MG TABLET PO SCH ×2 (08:49→16:44)
[2019-03-03] MEDS: MUPIROCIN OINT 2% 22 GM TUBE SCH ×2 (08:49→20:21)
[2019-03-03] MEDS: FUROSEMIDE 40 MG TABLET PO SCH ×2 (08:49→16:44)
[2019-03-03] MEDS: CLOTRIMAZOLE/BETAMETASONE DIPROPIONATE 15 GM TUBE TP SCH ×2 (08:50→16:45)
[2019-03-03] MEDS: HYDROGEL DRESSING 90 GM TUBE TP SCH ×2 (08:50→20:21)
[2019-03-03] MEDS: PROSOURCE / PROSTAT (PYXIS) 30 ML UDC GT SCH ×2 (10:41→16:44)
[2019-03-03 14:24] LABS: BASOPHILS # (AUTO) 0.1 /CMM (0.0-0.2); BASOPHILS % (AUTO) 0.9 % (0.0-2.0); EOSINOPHILS % (AUTO) 2.4 % (0.0-6.0); HEMATOCRIT 29 % (39-51); HEMOGLOBIN 9.3 g/dL (13.5-17.5); LYMPHOCYTES # (AUTO) 0.7 /CMM (0.8-4.8); LYMPHOCYTES % (AUTO) 8.8 % (20.0-44.0); MEAN CORPUSCULAR HGB CONC 32 g/dl (31.0-36.0); MEAN CORPUSCULAR VOLUME 95 fL (80-96); MONOCYTES # (AUTO) 0.8 /CMM (0.1-1.30); MONOCYTES % (AUTO) 9.9 % (2.0-12.0); PLATELET COUNT (AUTO) 174 /CMM (150-450); RED BLOOD CELL COUNT(AUTO) 3.06 MIL/uL (4.5-6.0); WHITE BLOOD COUNT (AUTO) 7.8 K/uL (4.3-11.0)
[2019-03-03 14:26] LABS: CALCIUM, SERUM 9.2 mg/dL (8.5-10.1); CARBON DIOXIDE 36 mmol/L (21-32); CHLORIDE 103 mmol/L (98-107); CREATININE 1.2 mg/dL (0.6-1.3); GLUCOSE 168 mg/dL (74-106); POTASSIUM 3.5 mmol/L (3.5-5.1); SODIUM SERUM 144 mmol/L (136-145); UREA NITROGEN, BLOOD 21 mg/dL (7-18)
[2019-03-03 16:00] VITALS: BP 110/68
[2019-03-03] MEDS: OXYBUTYNIN CHLORIDE ER 5 MG TAB PO SCH (17:11)
[2019-03-03] MEDS: ATORVASTATIN 10 MG TABLET PO SCH (17:11)
[2019-03-03] MEDS: LEVOFLOXACIN (500MG) 500 MG TABLET PO SCH (17:24)
--- NOTE | 2019-03-03 18:42 | NUR ---
MS RN CLOSING NOTES PT IS LYING ON BED WITH 3L O2 VIA NC CONTINUOUSLY,TOLERATING WELL.NO SOB AND ACUTE DISTRESS NOTED.IV LINE IS IN PLACE,SITE IS C/D/I.ALL THE DUE MEDS ARE GIVEN.RESPIRATION IS EVEN AND NONLABORED.ENDORSING TO TOBACCO GRADER RN FOR COLIN .
--- NOTE | 2019-03-03 19:27 | NUR ---
MS RN NOTE: RECEIVED PT ON BED ALERT AND ORIENTED X3. ABLE TO MAKE NEEDS KNOWN. NO ACUTE DISTRESS NOTED. DENIES PAIN AND DISCOMFORT AT THIS TIME. ON 3LPM NASAL CANNULA, BREATHING EVEN AND UNLABORED WITH NORMAL RESPIRATIONS. IV ON LEFT HAND #22 INTACT AND PATENT, FLUSHING WELL. CALL LIGHT PLACED WITHIN REACH. KEPT CLEAN, DRY AND COMFORTABLE. SAFETY AND FALL PRECAUTIONS OBSERVED AND MAINTAINED. WILL CONTINUE TO MONITOR PT.
[2019-03-03 20:00] VITALS: BP 124/71
[2019-03-03] MEDS: TRAZODONE 50 MG TABLET PO SCH (21:12)
--- NOTE | 2019-03-03 22:50 | NUR ---
MS RN NOTE: PT COMPLAINED OF PAIN ON IV SITE, CHECKED IV LINE, FLUSHING WELL. PT INSISTED TO TAKE OUT IV LINE AND ALSO REFUSED TO PUT IN A NEW LINE, EXPLAINED RISKS OF NOT HAVING A PERIPHERAL IV LINE BUT PT STILL REFUSED. PER PT "I'LL LET THEM DO IT IN AM, JUST LET ME SLEEP FOR NOW". CHARGE NURSE AWARE. WILL INFORM MD AND ENDORSE IT TO DAY SHIFT RN.
[2019-03-04] MEDS: ALBUTEROL HALF STRENGTH 1.25 MG/3 ML VIAL.NEB NEB SCH ×4 (01:30→19:54)
--- NOTE | 2019-03-04 02:35 | NUR ---
MS RN NOTE: COOK STATION KAYLYN RESENDEZ MADE AWARE THAT PT DOES NOT HAVE A PERIPHERAL LINE AND REFUSED TO INSERT A NEW ONE, PER KAYLYN RESENDEZ JUST FOLLOW UP MIDLINE ORDER IN AM.
[2019-03-04 04:00] VITALS: BP 138/74
--- NOTE | 2019-03-04 06:33 | NUR ---
MS RN NOTE: NO CHANGES NOTED THROUGHOUT THE SHIFT. NO APPARENT DISTRESS NOTED. NO COMPLAINTS OF PAIN OR DISCOMFORT AT THIS TIME. ON 3LPM NASAL CANNULA, NO SOB NOTED. CALL LIGHT PLACED WITHIN REACH. KEPT CLEAN, DRY AND COMFORTABLE. SAFETY AND FALL PRECAUTIONS OBSERVED AND MAINTAINED. WILL ENDORSE TO DAY SHIFT RN FOR CONTINUITY OF CARE.
[2019-03-04 08:00] VITALS: BP_SYST 140; BP_SYST 146; BP_DIAS 79
[2019-03-04] MEDS: ASCORBIC ACID 500 MG TABLET PO SCH (08:47)
[2019-03-04] MEDS: ropiniROLE 0.5 MG TABLET PO SCH (08:47)
[2019-03-04] MEDS: LOSARTAN POTASSIUM 50 MG TABLET PO SCH (08:47)
[2019-03-04] MEDS: CARVEDILOL 3.125 MG TABLET PO SCH ×2 (08:48→17:12)
[2019-03-04] MEDS: LACTOBACILLUS RHAMNOSUS GG 1 EACH CAP.SPRINK PO SCH ×2 (08:48→17:09)
[2019-03-04] MEDS: PREGABALIN 100 MG CAPSULE PO SCH ×2 (08:48→17:10)
[2019-03-04] MEDS: MEMANTINE HCL 5 MG TABLET PO SCH ×2 (08:48→17:10)
[2019-03-04] MEDS: DOCUSATE SODIUM 100 MG CAPSULE PO SCH ×2 (08:48→17:10)
[2019-03-04] MEDS: FUROSEMIDE 40 MG TABLET PO SCH ×2 (08:48→17:10)
[2019-03-04] MEDS: PROSOURCE / PROSTAT (PYXIS) 30 ML UDC GT SCH ×2 (08:57→17:55)
[2019-03-04] MEDS: APIXABAN 5 MG TABLET PO SCH ×2 (08:57→17:12)
[2019-03-04] MEDS: MUPIROCIN OINT 2% 22 GM TUBE SCH ×2 (08:58→21:34)
[2019-03-04] MEDS: HYDROGEL DRESSING 90 GM TUBE TP SCH ×2 (08:58→21:34)
[2019-03-04] MEDS: CLOTRIMAZOLE/BETAMETASONE DIPROPIONATE 15 GM TUBE TP SCH ×2 (08:59→17:55)
--- NOTE | 2019-03-04 09:00 | NUR ---
MS RN OPENING NOTE: RECEIVED PT AWAKE IN BED A/O X3. NO SOB OR ACUTE DISTRESS NOTED. DENIES PAIN AND DISCOMFORT AT THIS TIME. ON 3LPM VIA NASAL CANNULA, BREATHING EVEN AND UNLABORED WITH NORMAL RESPIRATIONS. NO IV CURRENTLY, WILL CONTACT MD AND MIDLINE RN. SAFETY MEASURES IN PLACE, CALL LIGHT WITHIN REACH. PATIENT CLEAN AND DRY. WILL CONTINUE TO MONITOR.
[2019-03-04] MEDS: VANCOMYCIN 1.25 GM in IV D5W 500 ML IV SCH (14:35)
[2019-03-04 16:00] VITALS: BP 150/72
[2019-03-04] MEDS: OXYBUTYNIN CHLORIDE ER 5 MG TAB PO SCH (17:10)
[2019-03-04] MEDS: ATORVASTATIN 10 MG TABLET PO SCH (17:10)
[2019-03-04] MEDS: LEVOFLOXACIN (500MG) 500 MG TABLET PO SCH (17:14)
--- NOTE | 2019-03-04 19:32 | NUR ---
MS RN NOTE: RECEIVED PT ON BED ALERT AND ORIENTED X3. ABLE TO MAKE NEEDS KNOWN. NO APPARENT DISTRESS NOTED. DENIES PAIN AND DISCOMFORT AT THIS TIME. ON 3LPM NASAL CANNULA, BREATHING EVEN AND UNLABORED WITH NORMAL RESPIRATIONS. LEFT UPPER ARM MIDLINE INTACT AND PATENT, FLUSHING WELL. CALL LIGHT PLACED WITHIN REACH. KEPT CLEAN, DRY AND COMFORTABLE. SAFETY AND FALL PRECAUTIONS OBSERVED AND MAINTAINED. WILL CONTINUE TO MONITOR PT.
--- NOTE | 2019-03-04 19:50 | NUR ---
MS RN CLOSING NOTE: PT AWAKE IN BED A/O X3. NO SOB OR ACUTE DISTRESS NOTED. DENIES PAIN AND DISCOMFORT AT THIS TIME. ON 3LPM VIA NASAL CANNULA, BREATHING EVEN AND UNLABORED WITH NORMAL RESPIRATIONS. PANKAJ MIDLINE INTACT AND PATENT. WOUND CARE COMPLETED ORDERED. SAFETY MEASURES IN PLACE, CALL LIGHT WITHIN REACH. PATIENT CLEAN AND DRY. CARE ENDORSED TO TECHNICAL OPERATIONS SPECIALIST RN.
[2019-03-04 20:00] VITALS: BP 131/75
[2019-03-04 20:39] LABS: BASOPHILS # (AUTO) 0.1 /CMM (0.0-0.2); BASOPHILS % (AUTO) 0.8 % (0.0-2.0); EOSINOPHILS % (AUTO) 2.6 % (0.0-6.0); HEMATOCRIT 30 % (39-51); HEMOGLOBIN 9.7 g/dL (13.5-17.5); LYMPHOCYTES # (AUTO) 0.8 /CMM (0.8-4.8); LYMPHOCYTES % (AUTO) 9.4 % (20.0-44.0); MEAN CORPUSCULAR HGB CONC 33 g/dl (31.0-36.0); MEAN CORPUSCULAR VOLUME 94 fL (80-96); MONOCYTES # (AUTO) 0.9 /CMM (0.1-1.30); MONOCYTES % (AUTO) 10.2 % (2.0-12.0); NEUTROPHILS # (AUTO) 6.5 /CMM (1.8-8.9); PLATELET COUNT (AUTO) 183 /CMM (150-450); RED BLOOD CELL COUNT(AUTO) 3.15 MIL/uL (4.5-6.0); WHITE BLOOD COUNT (AUTO) 8.5 K/uL (4.3-11.0)
[2019-03-04 20:45] LABS: CALCIUM, SERUM 9.2 mg/dL (8.5-10.1); CARBON DIOXIDE 39 mmol/L (21-32); CHLORIDE 102 mmol/L (98-107); CREATININE 1.3 mg/dL (0.6-1.3); GLUCOSE 152 mg/dL (74-106); POTASSIUM 3.9 mmol/L (3.5-5.1); SODIUM SERUM 144 mmol/L (136-145); UREA NITROGEN, BLOOD 23 mg/dL (7-18)
[2019-03-04] MEDS: TRAZODONE 50 MG TABLET PO SCH (21:33)
[2019-03-05] MEDS: ALBUTEROL HALF STRENGTH 1.25 MG/3 ML VIAL.NEB NEB SCH ×4 (01:08→19:51)
[2019-03-05 04:00] VITALS: BP 127/70
--- NOTE | 2019-03-05 06:49 | NUR ---
MS RN NOTE: NO CHANGES NOTED THROUGHOUT THE SHIFT. NO APPARENT DISTRESS NOTED. NO COMPLAINTS OF PAIN OR DISCOMFORT AT THIS TIME. ON 3LPM NASAL CANNULA, NO SOB NOTED. LEFT UPPER ARM MIDLINE INTACT AND PATENT, FLUSHING WELL. CALL LIGHT PLACED WITHIN REACH. KEPT CLEAN, DRY AND COMFORTABLE. SAFETY AND FALL PRECAUTIONS OBSERVED AND MAINTAINED. WILL ENDORSE TO DAY SHIFT RN FOR CONTINUITY OF CARE.
[2019-03-05 07:42] LABS: BASOPHILS # (AUTO) 0.1 /CMM (0.0-0.2); BASOPHILS % (AUTO) 0.7 % (0.0-2.0); EOSINOPHILS % (AUTO) 2.7 % (0.0-6.0); HEMATOCRIT 31 % (39-51); HEMOGLOBIN 9.9 g/dL (13.5-17.5); LYMPHOCYTES # (AUTO) 0.9 /CMM (0.8-4.8); LYMPHOCYTES % (AUTO) 9.6 % (20.0-44.0); MEAN CORPUSCULAR HGB CONC 32 g/dl (31.0-36.0); MEAN CORPUSCULAR VOLUME 94 fL (80-96); MONOCYTES # (AUTO) 0.9 /CMM (0.1-1.30); MONOCYTES % (AUTO) 10.1 % (2.0-12.0); NEUTROPHILS % (AUTO) 76.9 % (43.0-81.0); PLATELET COUNT (AUTO) 189 /CMM (150-450); RED BLOOD CELL COUNT(AUTO) 3.25 MIL/uL (4.5-6.0); WHITE BLOOD COUNT (AUTO) 9.1 K/uL (4.3-11.0)
[2019-03-05 08:00] VITALS: BP 142/63
--- NOTE | 2019-03-05 08:11 | NUR ---
MS RN OPENING NOTE: RECEIVED PT AWAKE IN BED A/O X3. NO SOB OR ACUTE DISTRESS NOTED. DENIES PAIN AND DISCOMFORT AT THIS TIME. ON 3LPM VIA NASAL CANNULA, BREATHING EVEN AND UNLABORED WITH NORMAL RESPIRATIONS. PANKAJ MIDLINE INTACT AND PATENT. SAFETY MEASURES IN PLACE, CALL LIGHT WITHIN REACH. PATIENT CLEAN AND DRY. WILL CONTINUE TO MONITOR.
[2019-03-05 08:14] LABS: CALCIUM, SERUM 9.5 mg/dL (8.5-10.1); CARBON DIOXIDE 38 mmol/L (21-32); CHLORIDE 101 mmol/L (98-107); CREATININE 1.2 mg/dL (0.6-1.3); GLUCOSE 124 mg/dL (74-106); MAGNESIUM 2.3 mg/dL (1.8-2.4); PHOSPHORUS 3.2 mg/dL (2.5-4.9); POTASSIUM 4.2 mmol/L (3.5-5.1); SODIUM SERUM 142 mmol/L (136-145); UREA NITROGEN, BLOOD 23 mg/dL (7-18)
[2019-03-05] MEDS: FUROSEMIDE 40 MG TABLET PO SCH ×2 (08:27→16:31)
[2019-03-05] MEDS: ropiniROLE 0.5 MG TABLET PO SCH (08:27)
[2019-03-05] MEDS: LACTOBACILLUS RHAMNOSUS GG 1 EACH CAP.SPRINK PO SCH ×2 (08:27→16:31)
[2019-03-05] MEDS: PREGABALIN 100 MG CAPSULE PO SCH ×2 (08:27→16:31)
[2019-03-05] MEDS: DOCUSATE SODIUM 100 MG CAPSULE PO SCH ×2 (08:27→16:31)
[2019-03-05] MEDS: ASCORBIC ACID 500 MG TABLET PO SCH (08:27)
[2019-03-05] MEDS: CARVEDILOL 3.125 MG TABLET PO SCH ×2 (08:28→16:32)
[2019-03-05] MEDS: LOSARTAN POTASSIUM 50 MG TABLET PO SCH (08:29)
[2019-03-05] MEDS: MEMANTINE HCL 5 MG TABLET PO SCH ×2 (08:34→16:31)
[2019-03-05] MEDS: APIXABAN 5 MG TABLET PO SCH ×2 (08:35→16:31)
[2019-03-05] MEDS: PROSOURCE / PROSTAT (PYXIS) 30 ML UDC GT SCH ×2 (08:37→16:36)
[2019-03-05] MEDS: HYDROGEL DRESSING 90 GM TUBE TP SCH ×2 (08:37→22:20)
[2019-03-05] MEDS: Z GUARD REMEDY 2 OZ OINT TP PRN ×2 (08:38→16:37)
[2019-03-05] MEDS: MUPIROCIN OINT 2% 22 GM TUBE SCH ×2 (08:39→21:00)
[2019-03-05] MEDS: CLOTRIMAZOLE/BETAMETASONE DIPROPIONATE 15 GM TUBE TP SCH ×2 (08:40→16:38)
[2019-03-05] MEDS: VANCOMYCIN 1.25 GM in IV D5W 500 ML IV SCH (08:52)
[2019-03-05 16:00] VITALS: BP 101/43
[2019-03-05] MEDS: LEVOFLOXACIN (500MG) 500 MG TABLET PO SCH (16:34)
[2019-03-05] MEDS: OXYBUTYNIN CHLORIDE ER 5 MG TAB PO SCH (18:28)
[2019-03-05] MEDS: ATORVASTATIN 10 MG TABLET PO SCH (18:29)
--- NOTE | 2019-03-05 19:45 | NUR ---
MS RN CLOSING NOTE: pT AWAKE IN BED A/O X3. NO SOB OR ACUTE DISTRESS NOTED. DENIES PAIN AND DISCOMFORT AT THIS TIME. ON 3LPM VIA NASAL CANNULA, BREATHING EVEN AND UNLABORED WITH NORMAL RESPIRATIONS. PANKAJ MIDLINE INTACT AND PATENT. WOUND CARE COMPLETED ORDERED. SAFETY MEASURES IN PLACE, CALL LIGHT WITHIN REACH. PATIENT CLEAN AND DRY. CARE ENDORSED TO NURSE INFECTION CONTROL RN. .
[2019-03-05 20:00] VITALS: BP 130/56
[2019-03-05] MEDS: TRAZODONE 50 MG TABLET PO SCH (22:18)
[2019-03-06] MEDS: ALBUTEROL HALF STRENGTH 1.25 MG/3 ML VIAL.NEB NEB SCH ×2 (01:30→07:41)
[2019-03-06 02:00] VITALS: BP 138/69
[2019-03-06] MEDS: VANCOMYCIN 1.25 GM in IV D5W 500 ML IV SCH (02:40)
[2019-03-06 04:00] VITALS: BP 138/69
[2019-03-06 08:00] VITALS: BP 133/62
[2019-03-06] MEDS: PROSOURCE / PROSTAT (PYXIS) 30 ML UDC GT SCH (08:44)
[2019-03-06] MEDS: FUROSEMIDE 40 MG TABLET PO SCH (08:45)
[2019-03-06] MEDS: DOCUSATE SODIUM 100 MG CAPSULE PO SCH (08:45)
[2019-03-06] MEDS: CARVEDILOL 3.125 MG TABLET PO SCH (08:45)
[2019-03-06] MEDS: PREGABALIN 100 MG CAPSULE PO SCH (08:45)
[2019-03-06] MEDS: ropiniROLE 0.5 MG TABLET PO SCH (08:45)
[2019-03-06] MEDS: ASCORBIC ACID 500 MG TABLET PO SCH (08:45)
[2019-03-06] MEDS: LACTOBACILLUS RHAMNOSUS GG 1 EACH CAP.SPRINK PO SCH (08:45)
[2019-03-06] MEDS: MEMANTINE HCL 5 MG TABLET PO SCH (08:45)
[2019-03-06 08:46] VITALS: BP 133/62
[2019-03-06] MEDS: APIXABAN 5 MG TABLET PO SCH (08:46)
[2019-03-06] MEDS: LOSARTAN POTASSIUM 50 MG TABLET PO SCH (08:46)
[2019-03-06] MEDS ORDERED: LEVO500T75 PO (10:27)
[2019-03-06] MEDS ORDERED: CLIN300C11 PO (10:27)
[2019-03-06] MEDS: MUPIROCIN OINT 2% 22 GM TUBE SCH (10:39)
[2019-03-06] MEDS: HYDROGEL DRESSING 90 GM TUBE TP SCH (10:39)
[2019-03-06] MEDS: CLOTRIMAZOLE/BETAMETASONE DIPROPIONATE 15 GM TUBE TP SCH (10:40)
--- NOTE | 2019-03-06 13:20 | NUR ---
RN D/C NOTES PT DENIES ANY SOB OR PAIN AT PRESENT MOMENT. D/C PHOTOS TAKEN. BELONGINGS LIST SIGNED AND [employer] INSTRUCTIONS SIGNED AND PROVIDED COPY TO PT AND HIS ALICIA. GERMÁN CHARGE NURSE REMOVED MIDLINE. WOUND PHOTOS TAKEN AND PLACED IN CHART. LAST SET OF VITALS TAKEN. ASSISTED PT INTO WHEELCHAIR. PT'S ACCOMPANIED PT AND WAS GIVEN PRESCRIPTION PER REQUEST OF PT. PT WAS WHEELED OUT BY AGUILA MAK AND MET BY PRIVATE CAR.
== END 2019-03-06 13:27 | disposition home health service (06) | DRG 901 ==
LOC: ER 18:54 → TELE1 23:33 → MEDSG1 02-28 10:23
PROVIDERS: ADMIT Internal Medicine; ATTEND Nurse Practitioner Acute Care
PROC: 0JB90ZZ Excision of Buttock Subcutaneous Tissue and Fascia, Open Approach (ICD-10-PCS; principal; 2019-02-27)
PROC: 0JBP0ZZ Excision of Left Lower Leg Subcutaneous Tissue and Fascia, Open Approach (ICD-10-PCS; 2019-03-02)
PROC: 05H633Z Insertion of Infusion Device into Left Subclavian Vein, Percutaneous Approach (ICD-10-PCS; 2019-03-04)
PROC: B547ZZA Ultrasonography of Left Subclavian Vein, Guidance (ICD-10-PCS; 2019-03-04)
DX: T81.31XA Disruption of external operation (surgical) wound, not elsewhere classified, initial encounter (principal); A41.9 Sepsis, unspecified organism; L89.323 Pressure ulcer of left buttock, stage 3; J96.21 Acute and chronic respiratory failure with hypoxia; I21.A1 Myocardial infarction type 2; J18.9 Pneumonia, unspecified organism; N17.0 Acute kidney failure with tubular necrosis; R65.20 Severe sepsis without septic shock; L03.113 Cellulitis of right upper limb; D68.59 Other primary thrombophilia; E44.0 Moderate protein-calorie malnutrition; I50.32 Chronic diastolic (congestive) heart failure; E87.2 Acidosis; I48.92 Unspecified atrial flutter; L97.828 Non-pressure chronic ulcer of other part of left lower leg with other specified severity; D63.8 Anemia in other chronic diseases classified elsewhere; I11.0 Hypertensive heart disease with heart failure; I48.91 Unspecified atrial fibrillation; Y83.8 Other surgical procedures as the cause of abnormal reaction of the patient, or of later complication, without mention of misadventure at the time of the procedure; Y92.009 Unspecified place in unspecified non-institutional (private) residence as the place of occurrence of the external cause; I25.10 Atherosclerotic heart disease of native coronary artery without angina pectoris; D69.6 Thrombocytopenia, unspecified; Z95.1 Presence of aortocoronary bypass graft; E66.9 Obesity, unspecified; Z68.33 Body mass index [BMI] 33.0-33.9, adult; Z86.718 Personal history of other venous thrombosis and embolism; Z86.711 Personal history of pulmonary embolism; Z79.01 Long term (current) use of anticoagulants; S41.112A Laceration without foreign body of left upper arm, initial encounter; S41.111A Laceration without foreign body of right upper arm, initial encounter; X58.XXXA Exposure to other specified factors, initial encounter; Y93.9 Activity, unspecified; L89.010 Pressure ulcer of right elbow, unstageable; L98.8 Other specified disorders of the skin and subcutaneous tissue; S70.322A Blister (nonthermal), left thigh, initial encounter; S40.822A Blister (nonthermal) of left upper arm, initial encounter; S70.321A Blister (nonthermal), right thigh, initial encounter; S81.802A Unspecified open wound, left lower leg, initial encounter; L30.4 Erythema intertrigo; I87.8 Other specified disorders of veins; E66.01 Morbid (severe) obesity due to excess calories; E88.09 Other disorders of plasma-protein metabolism, not elsewhere classified; Z22.322 Carrier or suspected carrier of Methicillin resistant Staphylococcus aureus; E11.51 Type 2 diabetes mellitus with diabetic peripheral angiopathy without gangrene; Z96.649 Presence of unspecified artificial hip joint
CPT/HCPCS: 36415; 36569; 71045-TC; 80048-TC; 80053-TC; 80076-TC; 80202-TC; 83605-TC; 83735-TC; 84100-TC; 84134-TC; 84443-TC; 84484-TC; 85025-TC; 85730-TC; 87040-TC; 87070-TC; 87081-TC; 87186-TC; 93971-TC; 94799-TC; 97530-TC; A6248; A6253; A6402; A6403; G0378; J0692; J2270; J2405; J2543; J3370; J7030; J7040; J7060